=== PATIENT | female | born 2000 | race Caucasian/White ===

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

== ENCOUNTER 2019-02-24 12:44 | Emergency (ER) | payer MEDICAID ==
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
[2019-02-24 13:40] LABS: BILIRUBIN,URINE NEGATIVE (NEGATIVE); GLUCOSE, URINE (UA) NEGATIVE (NEGATIVE); KETONES,URINE (UA) NEGATIVE (NEGATIVE); LEUKOCYTE ESTERASE, URINE NEGATIVE (NEGATIVE); NITRITE,URINE NEGATIVE (NEGATIVE); OCCULT BLOOD,URINE NEGATIVE (NEGATIVE); PH,URINE 5.5 PH (5.0-7.5); PROTEIN,URINE NEGATIVE (NEGATIVE); UROBILINOGEN,URINE 0.2 (NORMAL) E.U./dL (NORMAL)
[2019-02-24 13:44] LABS: CLARITY,URINE CLOUDY (CLEAR)
[2019-02-24 13:56] LABS: AMORPHOUS SEDIMENT,UR Moderate /LPF; BACTERIA,URINE Few /HPF (None Seen); RBC,URINE 0-5 /HPF (0-5); SQUAMOUS EPITHELIAL CELL,UR FEW Squamous (<= Few)
[2019-02-24 13:57] LABS: HCG UR QUAL NEGATIVE
[2019-02-24 15:10] LABS: CANDIDA GROUP DNA NEGATIVE (NEGATIVE); CANDIDA KRUSEI DNA NEGATIVE (NEGATIVE); TRICHOMONAS VAGINALIS DNA NEGATIVE (NEGATIVE)
[2019-02-24 15:32] VITALS: BP 142/77
[2019-02-24 18:57] LABS: TRICHOMONAS VAGINALIS DNA NEGATIVE (NEGATIVE)
== END 2019-02-24 15:32 | disposition home or self-care (01) ==
LOC: ED 12:44
DX: N76.0 Acute vaginitis (principal); F17.200 Nicotine dependence, unspecified, uncomplicated
CPT/HCPCS: 81001; 81025; 87086; 87491; 87591; 87661; 87801; 99283; 99284

== ENCOUNTER 2019-03-18 07:29 | Emergency (ER) | payer OTHER, MEDICAID ==
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
[2019-03-18] MEDS ORDERED: KETOROLAC 60 MG/2 ML VIAL IM STA (10:30)
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
[2019-03-18 11:15] VITALS: BP 90/50
== END 2019-03-18 11:15 | disposition home or self-care (01) ==
LOC: ED 07:29
DX: S06.0X0A Concussion without loss of consciousness, initial encounter (principal); S16.1XXA Strain of muscle, fascia and tendon at neck level, initial encounter; S20.219A Contusion of unspecified front wall of thorax, initial encounter; S39.012A Strain of muscle, fascia and tendon of lower back, initial encounter; S50.12XA Contusion of left forearm, initial encounter; S50.11XA Contusion of right forearm, initial encounter; V47.0XXA Car driver injured in collision with fixed or stationary object in nontraffic accident, initial encounter; W22.11XA Striking against or struck by driver side automobile airbag, initial encounter; Y92.410 Unspecified street and highway as the place of occurrence of the external cause; F17.200 Nicotine dependence, unspecified, uncomplicated
CPT/HCPCS: 70450; 71046; 72100; 72125; 99284

== ENCOUNTER 2019-06-04 10:48 | Emergency (ER) | payer MEDICAID, OTHER ==
[2019-06-04 12:14] VITALS: BP 108/56
--- NOTE | 2019-06-04 12:18 | ED Physician Documentation ---
History of Present Illness - Stated complaint Stated Complaint: BILATERAL FOOT PX/TINGLING - Chief complaint Chief Complaint: Ext Problem - Additonal information Additional information: This is a 19-year-old female presents with pain in her toes and resolved color changes. 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 She can move all of her toes, and the pain has improved, but she still has a little bit of tingling/burning sensation. No blisters, no toe color is now normal. Review of Systems Skin: reports: Other (Discoloration yesterday) Musculoskeletal: reports: Extremity pain PD PAST MEDICAL HISTORY - Past Medical History Cardiovascular: None Respiratory: None Neuro: None Endocrine/Autoimmune: None - Past Surgical History Past Surgical History: Yes Ortho: ACL reconstruction HEENT: Tonsil/Adenoidectomy - Present Medications Home Medications: Ambulatory Orders Medication Instructions Recorded Confirmed Metronidazole [Flagyl] 500 mg PO BID #14 tablet 02/24/19 Cyclobenzaprine [Flexeril] 10 mg PO TID PRN #20 tablet 03/18/19 Hydrocodone/Acetaminophen 1 - 2 each PO Q6H PRN #14 tablet 03/18/19 [Hydrocodon-Acetaminophen 5-325] Ibuprofen [Ibu] 600 mg PO Q6H PRN #30 tablet 06/04/19 - Allergies Allergies/Adverse Reactions: Allergies Allergy/AdvReac Type Severity Reaction Status Date / Time No Known Drug Allergies Allergy Verified 06/04/19 11:26 - Social History Does the pt smoke?: Yes Smoking Status: Current every day smoker Does the pt drink ETOH?: Yes ETOH Use: Liquor Does the pt have substance abuse?: No Substance Use and Type: Marijuana - Immunizations Immunizations are current?: Yes - POLST Patient has POLST: No PD ED PE NORMAL - Vitals Vital signs reviewed: Yes - General General: Alert and oriented X 3 - HEENT HEENT: Atraumatic - Cardiac Cardiac: Strong equal pulses - Respiratory Respiratory: No respiratory distress - Abdomen Abdomen: Non distended - Derm Derm: Warm and dry - Extremities Extremities: Other (Bilateral feet are normal in appearance, there are no color changes, no blisters, no lesions. She has excellent brisk capillary refill over all digits. She is able to wiggle all of her toes without issue. She has full range of motion at her ankles. Her toes are nontender to palpation. They are warm and normal in appearance.) - Neuro Neuro: Alert and oriented X 3 - Psych Psych: Normal mood, Normal affect Results - Vitals Vitals: Oxygen O2 Source Room air PD MEDICAL DECISION MAKING - ED course ED course: Reviewing the photos the patient had from yesterday and her symptoms, appears that she had some frostnip, she had discoloration of her toes associated with pain, but now the skin changes are completely resolved. There is no sign of deeper tissue injury, no blistering, no signs of frostbite at this time. She has full motor function of her toes, and her sensation is intact. Her feet appear completely normal at this time. She has some mild residual pain but this has been improving. I discussed the importance of avoiding further cold injury, recommendations on how to do this, return precautions, and PCP follow up with any residual symptoms. Pt agreed and was discharged home. Departure - Departure Disposition: 01 Home, Self Care Clinical Impression: Frostnip Qualifiers: Encounter type: initial encounter Qualified Code(s): T33.90XA - Superficial frostbite of unspecified sites, initial encounter Condition: Good Prescriptions: Ibuprofen [Ibu] 600 mg PO Q6H PRN #30 tablet PRN Reason: Pain Comments: You were seen today for pain and color change in your toes. It appears that you had the early stage of cold injury called frostnip, your toes appear normal now and your tissue appears healthy. For mild discomfort you may take ibuprofen. Keep your toes warm, avoid further cold exposure. If you are noticing color changes in your skin or pain while exposed to cold, take steps to warm your toes or fingers up to prevent frostbite. Follow-up with your primary care provider Forms: Activity restrictions Discharge Date/Time: 06/04/19 12:20
== END 2019-06-04 12:20 | disposition home or self-care (01) ==
LOC: ED 10:48
DX: T33.832A Superficial frostbite of left toe(s), initial encounter (principal); T33.831A Superficial frostbite of right toe(s), initial encounter; X31.XXXA Exposure to excessive natural cold, initial encounter; Y92.814 Boat as the place of occurrence of the external cause; Y99.0 Civilian activity done for income or pay; F17.200 Nicotine dependence, unspecified, uncomplicated
CPT/HCPCS: 1040M; 99282; 99284

== ENCOUNTER 2020-04-19 06:11 | Outpatient (CLI) | payer MEDICAID, OTHER ==
[2020-04-21 12:24] LABS: HEPATITIS C ANTIBODY NON-REACTIVE (NON-REACTIVE)
[2020-04-21 14:59] LABS: HIV AG/AB 4TH GEN NON-REACTIVE (NON-REACTIVE)
== END 2020-04-19 23:59 | disposition home or self-care (01) ==
LOC: LAB.N 06:11
PROVIDERS: ATTEND Physician Assistant Medical
DX: N76.0 Acute vaginitis (principal)
CPT/HCPCS: 36415; 81599; 86592; 86803; 87389

== ENCOUNTER 2020-04-19 16:00 | Outpatient (CLI) | payer BC, MEDICAID ==
[2020-04-19 20:04] LABS: CANDIDA GROUP DNA POSITIVE (NEGATIVE); CANDIDA KRUSEI DNA NEGATIVE (NEGATIVE); TRICHOMONAS VAGINALIS DNA NEGATIVE (NEGATIVE)
== END 2020-04-19 23:59 | disposition home or self-care (01) ==
LOC: LAB.R 16:00
PROVIDERS: ATTEND Physician Assistant Medical
DX: N76.0 Acute vaginitis (principal)
CPT/HCPCS: 87086; 87661; 87801

== ENCOUNTER 2020-05-07 13:12 | Emergency (ER) | payer OTHER ==
--- NOTE | 2020-05-07 13:58 | ED Physician Documentation ---
PD HPI CHEST PAIN - Stated complaint Stated Complaint: CHEST PX, LIGHTHEADED, CANT SEE OUT OF LEFT EYE - Chief complaint Chief Complaint: General - History obtained from History obtained from: Patient - History of Present Illness Timing - onset: How many days ago (several days of sharp pain left chest radiating to left scapula and to left shoulder, with some numbness to left arm. Occurred while exercising initially. Today with similiar sharp pain with working out upper body and then eliptical machine. Then noted peripheral visual changes right eye then headac) Timing - onset during: Light activity, Exertion Timing - duration: Days Timing - details: Gradual onset, Still present, Waxing and waning Quality: Aching, Sharp, Stabbing, Pain Location: Left chest Radiation: Back (scapula left), Left upper extremity Improved by: Rest Worsened by: Exertion, Inspiration, Movement. No: Eating Associated symptoms: Feeling faint / dizzy, Palpitations. No: Shortness of air, Diaphoresis, Nausea, General Weakness Similar symptoms before: Has not had sx before (no prior heart/lung problems, and no prior migraines/headaches.) Recently seen: Not recently seen Review of Systems Constitutional: denies: Fever, Chills Eyes: reports: Decreased vision (just lateral aspect/rim.), Photophobia. denies: Loss of vision, Irritation Nose: denies: Rhinorrhea / runny nose, Congestion Neurologic: denies: Generalized weakness, Focal weakness, Difficulty speaking, Near syncope Psychiatric: denies: Depressed PD PAST MEDICAL HISTORY - Past Medical History Cardiovascular: None Respiratory: None Neuro: None Endocrine/Autoimmune: None - Past Surgical History Past Surgical History: Yes Ortho: ACL reconstruction HEENT: Tonsil/Adenoidectomy - Present Medications Home Medications: Ambulatory Orders Medication Instructions Recorded Confirmed HYDROcod/ACETAM 5/325 [[place] 5/325] 1 ea PO Q6H PRN #12 tablet 05/07/20 Ibuprofen [Motrin] 600 mg PO TID PRN #25 tab 05/07/20 Supplements 05/07/20 tiZANidine [Zanaflex] 4 mg PO Q8H PRN #25 tablet 05/07/20 - Allergies Allergies/Adverse Reactions: Allergies Allergy/AdvReac Type Severity Reaction Status Date / Time No Known Drug Allergies Allergy Verified 05/07/20 13:29 - Social History Does the pt smoke?: Yes Smoking Status: Current every day smoker Does the pt drink ETOH?: Yes Does the pt have substance abuse?: No - Family History Family history: reports: CAD. denies: Venous thromboembolism, Aortic aneursym, Aortic dissection - Immunizations Immunizations are current?: Yes - POLST Patient has POLST: No PD ED PE NORMAL - Vitals Vital signs reviewed: Yes - General General: Alert and oriented X 3, No acute distress, Well developed/nourished - HEENT HEENT: PERRL, EOMI, Pharynx benign, Other (anterior and posterior chambers appear normal on fundal exam. ) - Neck Neck: Supple, no meningeal sign, No bony TTP - Cardiac Cardiac: RRR, No murmur - Respiratory Respiratory: Clear bilaterally, Other (no chestwall tenderness) - Abdomen Abdomen: Soft, Non tender - Derm Derm: Normal color, Warm and dry - Extremities Extremities: No tenderness to palpate, Normal ROM s pain, No edema, No calf tenderness / cord - Neuro Neuro: Alert and oriented X 3, No motor deficit, Normal speech Eye Opening: Spontaneous Motor: Obeys Commands Verbal: Oriented GCS Score: 15 - Psych Psych: No: Normal affect (very anxious but pleasant) Results - Vitals Vitals: Vital Signs - 24 hr 05/07/20 05/07/20 13:15 17:32 Temperature 36.3 C L Heart Rate 87 82 Respiratory 16 18 Rate Blood Pressure 137/79 H 129/77 O2 Saturation 100 95 Oxygen O2 Source Room air - Labs Labs: Laboratory Tests 05/07/20 05/07/20 05/07/20 13:50 14:08 14:08 WBC 9.5 RBC 3.75 L Hgb 11.8 L Hct 36.0 L MCV 96.0 MCH 31.5 H MCHC 32.8 RDW 12.9 Plt Count 192 MPV 9.7 Neut # (Auto) 6.4 Lymph # (Auto) 2.6 Spink # (Auto) 0.5 Eos # (Auto) 0.0 Baso # (Auto) 0.0 Absolute Nucleated RBC 0.00 Nucleated RBC % 0.0 Sodium 132 L Potassium 3.3 L Chloride 92 L Carbon Dioxide 27 Anion Gap 13.0 BUN 11 Creatinine 0.9 Estimated GFR (MDRD) 80 L Glucose 85 Calcium 9.3 Total Bilirubin 0.6 AST 43 H ALT 26 Alkaline Phosphatase 46 Troponin I High Sens Total Protein 7.2 Albumin 4.5 Globulin 2.7 Albumin/Globulin Ratio 1.7 Lipase 28 Urine Color COLORLESS Urine Clarity CLEAR Urine pH 6.0 Ur Specific Crowder <=1.005 Urine Protein NEGATIVE Urine Glucose (UA) NEGATIVE Urine Ketones NEGATIVE Urine Occult Blood NEGATIVE Urine Nitrite NEGATIVE Urine Bilirubin NEGATIVE Urine Urobilinogen 0.2 (NORMAL) Ur Leukocyte Esterase NEGATIVE Ur Microscopic Review NOT INDICATED Urine Culture Comments NOT INDICATED Urine HCG, Qual NEGATIVE 05/07/20 14:08 WBC RBC Hgb Hct MCV MCH MCHC RDW Plt Count MPV Neut # (Auto) Lymph # (Auto) Spink # (Auto) Eos # (Auto) Baso # (Auto) Absolute Nucleated RBC Nucleated RBC % Sodium Potassium Chloride Carbon Dioxide Anion Gap BUN Creatinine Estimated GFR (MDRD) Glucose Calcium Total Bilirubin AST ALT Alkaline Phosphatase Troponin I High Sens 8.7 Total Protein Albumin Globulin Albumin/Globulin Ratio Lipase Urine Color Urine Clarity Urine pH Ur Specific Crowder Urine Protein Urine Glucose (UA) Urine Ketones Urine Occult Blood Urine Nitrite Urine Bilirubin Urine Urobilinogen Ur Leukocyte Esterase Ur Microscopic Review Urine Culture Comments Urine HCG, Qual - Rads (name of study) head CT Radiology: Prelim report reviewed (no acute process), See rad report chest angio Radiology: Prelim report reviewed (normal aorta. ), See rad report PD MEDICAL DECISION MAKING - ED course Complexity details: reviewed results, re-evaluated patient (feeling improved with IV meds here. ), considered differential (concern for lung/heart and particularly vascular like dissection. Could be just musculoskeletal and coincidentally some ocular migraine. But consider dissection of aorta or other bad process. ), d/w patient Departure - Departure Disposition: 01 Home, Self Care Clinical Impression: Pain of left scapula, Vision abnormalities, Ocular migraine Condition: Stable Record reviewed to determine appropriate education?: Yes Instructions: ED Strain Muscle Ext Prescriptions: Ibuprofen [Motrin] 600 mg PO TID PRN #25 tab PRN Reason: Pain HYDROcod/ACETAM 5/325 [[place] 5/325] 1 ea PO Q6H PRN #12 tablet PRN Reason: Pain tiZANidine [Zanaflex] 4 mg PO Q8H PRN #25 tablet PRN Reason: Spasms Comments: I would suggest decreasing your general caffeine use. Continue to stay well- hydrated. Your other supplements should be okay. Regarding the vision change in the one eye, I am assuming the symptoms sound like a ophthalmic migraine. No other acute abnormality is seen on the CT scan and blood testing. Regarding the left chest/scapular pain, it would seem likely musculoskeletal as there is no signs of heart lung or vascular problems based on your testing. I would use anti-inflammatory such as ibuprofen 3 times a day. Add tizanidine if needed for stiffness and spasms. To that add Tylenol if needed for pain, and hydrocodone for worse pain if needed short term. I would anticipate improvement over several days and resolution over 5 to 7 days. Recheck if not better in that timeframe. Check if other symptoms develop with that. Discharge Date/Time: 05/07/20 17:32
[2020-05-07 14:13] LABS: BILIRUBIN,URINE NEGATIVE (NEGATIVE); GLUCOSE, URINE (UA) NEGATIVE (NEGATIVE); KETONES,URINE (UA) NEGATIVE (NEGATIVE); LEUKOCYTE ESTERASE, URINE NEGATIVE (NEGATIVE); NITRITE,URINE NEGATIVE (NEGATIVE); OCCULT BLOOD,URINE NEGATIVE (NEGATIVE); PROTEIN,URINE NEGATIVE (NEGATIVE); UROBILINOGEN,URINE 0.2 (NORMAL) E.U./dL (NORMAL)
[2020-05-07 14:14] LABS: CLARITY,URINE CLEAR (CLEAR)
[2020-05-07 14:15] LABS: HCG UR QUAL NEGATIVE
[2020-05-07 14:19] LABS: BASOPHILS % (AUTO) 0.2 %; EOSINOPHILS % (AUTO) 0.2 %; HGB - HEMOGLOBIN 11.8 g/dL (12.0-16.0); LYMPHOCYTES # (AUTO) 2.6 10^3/uL (1.5-3.5); LYMPHOCYTES % (AUTO) 27.5 %; MEAN CORPUSCULAR HEMOGLOBIN 31.5 pg (27.0-31.0); MEAN CORPUSCULAR HGB CONC 32.8 g/dL (32.0-36.0); MEAN PLATELET VOLUME 9.7 fL (7.9-10.8); MONOCYTES # (AUTO) 0.5 10^3/uL (0.0-1.0); MONOCYTES % (AUTO) 4.7 %; NEUTROPHILS # (AUTO) 6.4 10^3/uL (1.5-6.6); NEUTROPHILS % (AUTO) 67.2 %; PLT - PLATELET COUNT 192 10^3/uL (130-450); RED BLOOD COUNT 3.75 10^6/uL (4.20-5.40); RED CELL DISTRIBUTION WIDTH 12.9 % (12.0-15.0); WHITE BLOOD COUNT 9.5 x10^3/uL (4.8-10.8)
[2020-05-07] MEDS ORDERED: LORazepam 2 MG/ML VIAL IVP STA (14:29)
[2020-05-07] MEDS ORDERED: KETOROLAC 30 MG/ML VIAL IVP STA (14:29)
[2020-05-07] MEDS ORDERED: SODIUM CHLORIDE 0.9% 1,000 ML IV STA (14:29)
[2020-05-07 14:33] LABS: ALBUMIN 4.5 g/dL (3.2-5.5); ALBUMIN/GLOBULIN RATIO 1.7 (1.0-2.2); BILIRUBIN,TOTAL 0.6 mg/dL (0.2-1.0); CALCIUM 9.3 mg/dL (8.5-10.3); CREATININE 0.9 mg/dL (0.4-1.0); TOTAL PROTEIN 7.2 g/dL (6.7-8.2)
[2020-05-07] MEDS ORDERED: IOVERSOL 320 100 ML VIAL IVP ONE ×2 (14:43→16:48)
--- NOTE | 2020-05-07 15:53 | CT Report ---
PROCEDURE: HEAD WO INDICATIONS: LEFT HEADACHE, RIGHT VISUAL CHANGE. TECHNIQUE: Noncontrast 4.5 mm thick angled axial sections acquired from the foramen magnum to the vertex. For r adiation dose reduction, the following was used: automated exposure control, adjustment of mA and/or kV according to patient size. COMPARISON: None. FINDINGS: Image quality: Excellent. CSF spaces: Basal cisterns are patent. No extra-axial fluid collections. Ventricles are normal in size and shape. Brain: No midline shift. No intracranial masses or hemorrhage. Yen-white matter interface is norm al. Skull and face: Calvarium and visualized facial bones are intact, without suspicious lesions. Sinuses: Visualized sinuses and mastoids are clear. IMPRESSION: Normal for age, source of current symptoms is not seen. Reviewed by: Hakeem Sen MD on 05/07/2020 3:52 PM PST Approved by: Hakeem Sen MD on 05/07/2020 3:52 PM PST Station ID: [id number]
--- NOTE | 2020-05-07 16:02 | CT Report ---
PROCEDURE: ANGIO CHEST W/WO INDICATIONS: left chest/back pain into neck; eval aorta CONTRAST: IV CONTRAST: Optiray 320 ml: 80 PO CONTRAST: *NO PO CONTRAST TECHNIQUE: After the administration of intravenous contrast, 2 mm thick sections acquired from the pulmonary api joya to the posterior costophrenic angles. 3-dimensional maximum intensity projection (MIP) coronal a nd sagittal reformats were then acquired through the thorax. For radiation dose reduction, the follow ing was used: automated exposure control, adjustment of mA and/or kV according to patient size. COMPARISON: FINDINGS: Image quality: Excellent. Pulmonary arteries: Pulmonary arteries are normal in size, and demonstrate no intraluminal filling d efects to suggest central pulmonary embolism. Lungs and pleura: Lungs are clear. No pleural effusions or pneumothorax. Central and peripheral ai rways are patent. Mediastinum: Heart size is normal, without pericardial effusion. No mediastinal or hilar adenopathy . Thoracic aorta is normal in caliber and enhancement. Esophagus is normal in caliber, without hiat al hernia. Bones and chest wall: No suspicious bony lesions. Ribs and thoracic spine appear intact throughout. The thyroid is normal. No axillary or supraclavicular adenopathy. Abdomen: Visualized upper abdominal solid organs appear normal in the early arterial phase of enhanc ement. IMPRESSION: There is no sign of aortic aneurysm or dissection. No underlying inflammatory change is seen involvin g the lung parenchyma or pleural surfaces to explain atypical chest pain. A pulmonary embolus is not found-the phase of contrast enhancement allows visualization of the pulmonary arterial vasculature to a diagnostic degree. Overall, therefore, etiology of current symptoms is not identified. The brachio cephalic arterial vasculature extending cephalad into the lower neck appears normal also. Reviewed by: Hakeem Sen MD on 05/07/2020 4:01 PM PST Approved by: Hkaeem Sen MD on 05/07/2020 4:01 PM PST Station ID: [id number]
[2020-05-07] MEDS ORDERED: HYDROmorphone 1 MG/ML CARPUJECT IVP STA (16:41)
[2020-05-07 17:32] VITALS: BP 129/77
== END 2020-05-07 17:32 | disposition home or self-care (01) ==
LOC: ED 13:12
DX: R07.9 Chest pain, unspecified (principal); M25.512 Pain in left shoulder; G43.B0 Ophthalmoplegic migraine, not intractable; H53.9 Unspecified visual disturbance; Z82.49 Family history of ischemic heart disease and other diseases of the circulatory system; F17.200 Nicotine dependence, unspecified, uncomplicated
CPT/HCPCS: 36415; 70450; 71275; 80053; 81003; 81025; 83690; 84484; 85025; 93005; 96374; 96375; 99284; J1170; J2060; Q9967; 81001; 87086

== ENCOUNTER 2020-07-02 08:00 | Outpatient (CLI) | payer SELFPAY ==
[2020-07-03 03:06] LABS: CANDIDA KRUSEI DNA UNRESOLVED (NEGATIVE)
[2020-07-03 03:07] LABS: CANDIDA GROUP DNA UNRESOLVED (NEGATIVE); TRICHOMONAS VAGINALIS DNA UNRESOLVED (NEGATIVE)
== END 2020-07-02 23:59 | disposition home or self-care (01) ==
LOC: LAB.R 08:00
PROVIDERS: ATTEND Physician Assistant Medical
DX: N76.0 Acute vaginitis (principal)
CPT/HCPCS: 87086; 87661; 87801

== ENCOUNTER 2020-08-20 08:00 | Outpatient (CLI) | payer BC, OTHER ==
[2020-08-20 22:22] LABS: BACTERIAL VAGINOSIS DNA NEGATIVE (NEGATIVE); CANDIDA KRUSEI DNA NEGATIVE (NEGATIVE)
[2020-08-20 22:23] LABS: CANDIDA GLABRATA DNA NEGATIVE (NEGATIVE); CANDIDA GROUP DNA POSITIVE (NEGATIVE); TRICHOMONAS VAGINALIS DNA NEGATIVE (NEGATIVE)
[2020-08-20 23:39] LABS: NEISSERIA GONORRHOEAE DNA NEGATIVE (NEGATIVE); TRICHOMONAS VAGINALIS DNA NEGATIVE (NEGATIVE)
[2020-08-20 23:51] LABS: CHLAMYDIA TRACHOMATIS DNA POSITIVE (NEGATIVE)
--- OUTSIDE RECORDS SUMMARY | 2020-08-26 02:04 | EXTERNAL MEDICAL SUMMARY RPT | Continuity of Care Document ---
:1999 Demographics Phone Unavailable Preferred Language Unknown Marital Status Unknown Caodaism Affiliation Unknown Race Unknown Ethnic Group Unknown Author Organization [facility] Address [address] [id number] Phone Care Team Providers Name Role Phone Registrar Unavailable Unavailable PA-C Unavailable Unavailable MD Unavailable Unavailable Sandy Unavailable Unavailable PHARMACY SERVICE ASSOCIATE Unavailable Unavailable Problems date description facility [id number] [facility] [id number] [facility] [id number] blood in urine, abd pain [facility] [id number] CHLAM, NEISSERIA, TRICH DNA All [id number] Current every day smoker All 49133435 Vaginitis Pathogens-Affirm CASING BLOWER III All [id number] Alcohol use All 74220557 Urine C&S All 06486548 Alcohol intake All [id number] Details of drug misuse behavior All [id number] CHLAM, NEISSERIA, TRICH DNA All 93590862 Current every day smoker All 18443667 Details of drug misuse behavior All 02490033 Other specified noninflammatory All disorders of vagina 76427062 Urine C&S All 14690712 Vaginal discharge All 55817407 Vaginitis Pathogens-Affirm CASING BLOWER III All 76034324 Alcohol use All 04702604 Leukorrhea, not specified as infective All Medications date description facility [id number] [facility] All 81936818 DOXYCYCLINE HYCLATE All [id number] DOXYCYCLINE HYCLATE All [id number] [facility] All [id number] [facility] All [id number] DOXYCYCLINE HYCLATE All 28153488 DOXYCYCLINE HYCLATE All 16128495 [facility] All 99085905 [facility] All 64399102 DOXYCYCLINE HYCLATE All [id number] DOXYCYCLINE HYCLATE All 67948427 [facility] All Procedures date description facility 06478723 URINE DIP All date description facility 75627913 URINE DIP All date description facility 34456965 URINE DIP All date description facility 52142856 URINE DIP All date description facility 95110133 URINE DIP All date description facility 68354518 [facility] All date description facility 21313331 [facility] D[facility] All date description facility 44329415 [facility] D[facility] All date description facility 48504006 [facility] D[facility] All Results test status date ordered by attending specimen mai e T unknown [id number] unknown unknown unknown T unknown 99823831 unknown unknown unknown CANDIDA_GLABRATA_DNA unknown 17876256 unknown unknown un known CANDIDA_KRUSEI_DNA unknown 88155669 unknown unknown unkn own DIPSTICK_URINE_STRIP_L unknown 42036819 unknown unknown unknown OT_NUMBER Candida_glabrata_by_Re unknown 21575301 unknown unknown unknown si-ilpf_EUH_-_iiffgcd_f ulture protein_urine_semiquan unknown 30707701 unknown unknown unknown titative_dipstick_ glucose_urine_semiquan unknown 12989398 unknown unknown unknown titative Erythrocytes_area_in_U unknown 52629378 unknown unknown unknown rine_sediment_by_Micros copy_high_power_field Candida_krusei_by_Real unknown 64846556 unknown unknown unknown -Time_PCR RBC_urine_dipstick unknown 74895061 unknown unknown unkn own Albumin_Presence_in_Ur unknown 47017058 unknown unknown unknown ine urine_color unknown 60422894 unknown unknown unknown bilirubin_urine unknown 90835603 unknown unknown unknown ketones_urine_by_test_ unknown 38544306 unknown unknown unknown strip nitrite_urine_semiquan unknown 10326507 unknown unknown unknown titative pH_urine_semiquantitat unknown 01997740 unknown unknown unknown jason specific_gravity_urine unknown 17936942 unknown unknown unknown urobilinogen_urine_sem unknown 57001356 unknown unknown unknown iquantitative_dipstick_ leukocyte_esterase_uri unknown 16004697 unknown unknown unknown ne_by_dipstick appearance_urine unknown 98185468 unknown unknown unknow n urinalysis_routine unknown 45451139 unknown unknown unkn own Appearance_of_Urine unknown 15583345 unknown unknown unk nown Bilirubin.total_Presen unknown 98040067 unknown unknown unknown ce_in_Urine_by_Test_str ip Color_of_Urine unknown 48892016 unknown unknown unknown Glucose_Mass_volume_in unknown 20409197 unknown unknown unknown _Urine_by_Test_strip Ketones_Mass_volume_in unknown 91983719 unknown unknown unknown _Urine_by_Test_strip Leukocyte_esterase_Pre unknown 14482440 unknown unknown unknown sence_in_Urine_by_Test_ strip Nitrite_Presence_in_Ur unknown 39617903 unknown unknown unknown ine_by_Test_strip pH_of_Urine_by_Test_st unknown 99993768 unknown unknown unknown rip Specific_gravity_of_Ur unknown 28861570 unknown unknown unknown ine_by_Test_strip Urobilinogen_Presence_ unknown 22354408 unknown unknown unknown in_Urine_by_Test_strip Candida_glabrata_DNA_P unknown 06356818 unknown unknown unknown resence_in_Vaginal_flui d_by_NAA_with_probe_det ection T unknown 21620450 unknown unknown unknown T unknown 93025370 unknown unknown unknown CANDIDA_GLABRATA_DNA unknown 45813098 unknown unknown un known CANDIDA_KRUSEI_DNA unknown 31815546 unknown unknown unkn own Candida_glabrata_by_Re unknown 50950050 unknown unknown unknown re-htik_VZT_-_qlctntp_p ulture Candida_krusei_by_Real unknown 67396752 unknown unknown unknown -Time_PCR Candida_glabrata_DNA_P unknown 97671058 unknown unknown unknown resence_in_Vaginal_flui d_by_NAA_with_probe_det ection T unknown 84847091 unknown unknown unknown T unknown 93020775 unknown unknown unknown CANDIDA_GLABRATA_DNA unknown 59214254 unknown unknown un known CANDIDA_KRUSEI_DNA unknown 16317759 unknown unknown unkn own DIPSTICK_URINE_STRIP_L unknown 10327804 unknown unknown unknown OT_NUMBER Candida_glabrata_by_Re unknown 49441810 unknown unknown unknown nx-gjuk_YWB_-_tqmwupi_m ulture protein_urine_semiquan unknown 64156462 unknown unknown unknown titative_dipstick_ glucose_urine_semiquan unknown 71178514 unknown unknown unknown titative Erythrocytes_area_in_U unknown 28744769 unknown unknown unknown rine_sediment_by_Micros copy_high_power_field Candida_krusei_by_Real unknown 05998496 unknown unknown unknown -Time_PCR RBC_urine_dipstick unknown 90933619 unknown unknown unkn own Albumin_Presence_in_Ur unknown 97847486 unknown unknown unknown ine urine_color unknown 34022886 unknown unknown unknown bilirubin_urine unknown 98003035 unknown unknown unknown ketones_urine_by_test_ unknown 07777417 unknown unknown unknown strip nitrite_urine_semiquan unknown 49645862 unknown unknown unknown titative pH_urine_semiquantitat unknown 68575208 unknown unknown unknown jason specific_gravity_urine unknown 15422611 unknown unknown unknown urobilinogen_urine_sem unknown 34815197 unknown unknown unknown iquantitative_dipstick_ leukocyte_esterase_uri unknown 84923960 unknown unknown unknown ne_by_dipstick appearance_urine unknown 36857246 unknown unknown unknow n urinalysis_routine unknown 34679806 unknown unknown unkn own Appearance_of_Urine unknown 12471966 unknown unknown unk nown Bilirubin.total_Presen unknown 27653885 unknown unknown unknown ce_in_Urine_by_Test_str ip Color_of_Urine unknown 20327089 unknown unknown unknown Glucose_Mass_volume_in unknown 91638408 unknown unknown unknown _Urine_by_Test_strip Ketones_Mass_volume_in unknown 29519132 unknown unknown unknown _Urine_by_Test_strip Leukocyte_esterase_Pre unknown 60582533 unknown unknown unknown sence_in_Urine_by_Test_ strip Nitrite_Presence_in_Ur unknown 31205848 unknown unknown unknown ine_by_Test_strip pH_of_Urine_by_Test_st unknown 73614271 unknown unknown unknown rip Specific_gravity_of_Ur unknown 52548954 unknown unknown unknown ine_by_Test_strip Urobilinogen_Presence_ unknown 32151799 unknown unknown unknown in_Urine_by_Test_strip Candida_glabrata_DNA_P unknown 44242687 unknown unknown unknown resence_in_Vaginal_flui d_by_NAA_with_probe_det ection DIPSTICK_URINE_STRIP_L unknown 18116213 unknown unknown unknown OT_NUMBER Urine_HCG_Lot_Number_C unknown 48103266 unknown unknown unknown LIA_Waived_ Urine_HCG_Exp_Date_CLI unknown 25638419 unknown unknown unknown A_Waived_ protein_urine_semiquan unknown 48750542 unknown unknown unknown titative_dipstick_ glucose_urine_semiquan unknown 87618773 unknown unknown unknown titative Erythrocytes_area_in_U unknown 24424415 unknown unknown unknown rine_sediment_by_Micros copy_high_power_field RBC_urine_dipstick unknown 25102903 unknown unknown unkn own Albumin_Presence_in_Ur unknown 59781548 unknown unknown unknown ine Choriogonadotropin_pre unknown 62614670 unknown unknown unknown gnancy_test_Presence_in _Urine human_chorionic_gonado unknown 39758444 unknown unknown unknown tropin_urine_qualitativ e_urine_pregnancy_test_ urine_color unknown 61646817 unknown unknown unknown bilirubin_urine unknown 59705295 unknown unknown unknown ketones_urine_by_test_ unknown 42184483 unknown unknown unknown strip nitrite_urine_semiquan unknown 50666542 unknown unknown unknown titative pH_urine_semiquantitat unknown 37480193 unknown unknown unknown jason specific_gravity_urine unknown 45388532 unknown unknown unknown urobilinogen_urine_sem unknown 52894016 unknown unknown unknown iquantitative_dipstick_ leukocyte_esterase_uri unknown 16551884 unknown unknown unknown ne_by_dipstick appearance_urine unknown 57479370 unknown unknown unknow n urinalysis_routine unknown 70990455 unknown unknown unkn own culture_status unknown 16421179 unknown unknown unknown Appearance_of_Urine unknown 32038195 unknown unknown unk nown Bilirubin.total_Presen unknown 63344678 unknown unknown unknown ce_in_Urine_by_Test_str ip Color_of_Urine unknown 43519310 unknown unknown unknown Glucose_Mass_volume_in unknown 70740293 unknown unknown unknown _Urine_by_Test_strip Ketones_Mass_volume_in unknown 25648298 unknown unknown unknown _Urine_by_Test_strip Leukocyte_esterase_Pre unknown 40563240 unknown unknown unknown sence_in_Urine_by_Test_ strip Nitrite_Presence_in_Ur unknown 70628447 unknown unknown unknown ine_by_Test_strip pH_of_Urine_by_Test_st unknown 88852948 unknown unknown unknown rip Specific_gravity_of_Ur unknown 84836267 unknown unknown unknown ine_by_Test_strip Urobilinogen_Presence_ unknown 20139203 unknown unknown unknown in_Urine_by_Test_strip T unknown 53921280 unknown unknown unknown T unknown 35572040 unknown unknown unknown T unknown 00970406 unknown unknown unknown CANDIDA_GLABRATA_DNA unknown 28212565 unknown unknown un known CANDIDA_KRUSEI_DNA unknown 90650398 unknown unknown unkn own CHLAMYDIA_TRACHOMATIS_ unknown 03178346 unknown unknown unknown DNA T unknown 30020741 unknown unknown unknown TRICHOMONAS_VAGINALIS_ unknown 55535584 unknown unknown unknown DNA DIPSTICK_URINE_STRIP_L unknown 31133489 unknown unknown unknown OT_NUMBER Candida_glabrata_by_Re unknown 61224796 unknown unknown unknown uv-qhbl_TIN_-_cnfqibj_j ulture TRICHOMONAS_VAGINALIS_ unknown 52175935 unknown unknown unknown DNA_PROBE Urine_HCG_Lot_Number_C unknown 44144970 unknown unknown unknown LIA_Waived_ Urine_HCG_Exp_Date_CLI unknown 57730703 unknown unknown unknown A_Waived_ protein_urine_semiquan unknown 59474621 unknown unknown unknown titative_dipstick_ glucose_urine_semiquan unknown 69954348 unknown unknown unknown titative Erythrocytes_area_in_U unknown 21037672 unknown unknown unknown rine_sediment_by_Micros copy_high_power_field chlamydia_DNA_probe unknown 14384588 unknown unknown unk nown Candida_krusei_by_Real unknown 51685459 unknown unknown unknown -Time_PCR RBC_urine_dipstick unknown 66428553 unknown unknown unkn own Albumin_Presence_in_Ur unknown 10235452 unknown unknown unknown ine Choriogonadotropin_pre unknown 06804042 unknown unknown unknown gnancy_test_Presence_in _Urine Chlamydia_trachomatis_ unknown 20162412 unknown unknown unknown DNA_Presence_in_Unspeci fied_specimen_by_NAA_wi th_probe_detection human_chorionic_gonado unknown 99961873 unknown unknown unknown tropin_urine_qualitativ e_urine_pregnancy_test_ urine_color unknown 28756473 unknown unknown unknown bilirubin_urine unknown 26670573 unknown unknown unknown ketones_urine_by_test_ unknown 67763352 unknown unknown unknown strip nitrite_urine_semiquan unknown 57072349 unknown unknown unknown titative pH_urine_semiquantitat unknown 83301216 unknown unknown unknown jason specific_gravity_urine unknown 60881603 unknown unknown unknown urobilinogen_urine_sem unknown 54430017 unknown unknown unknown iquantitative_dipstick_ leukocyte_esterase_uri unknown 47543853 unknown unknown unknown ne_by_dipstick appearance_urine unknown 57463993 unknown unknown unknow n urinalysis_routine unknown 33747459 unknown unknown unkn own culture_status unknown 32696051 unknown unknown unknown Appearance_of_Urine unknown 68663685 unknown unknown unk nown Bilirubin.total_Presen unknown 78864344 unknown unknown unknown ce_in_Urine_by_Test_str ip Color_of_Urine unknown 14493606 unknown unknown unknown Glucose_Mass_volume_in unknown 93419209 unknown unknown unknown _Urine_by_Test_strip Ketones_Mass_volume_in unknown 89946093 unknown unknown unknown _Urine_by_Test_strip Leukocyte_esterase_Pre unknown 68176886 unknown unknown unknown sence_in_Urine_by_Test_ strip Nitrite_Presence_in_Ur unknown 12046072 unknown unknown unknown ine_by_Test_strip pH_of_Urine_by_Test_st unknown 94096169 unknown unknown unknown rip Specific_gravity_of_Ur unknown 23615099 unknown unknown unknown ine_by_Test_strip Urobilinogen_Presence_ unknown 23590453 unknown unknown unknown in_Urine_by_Test_strip Candida_glabrata_DNA_P unknown 87879505 unknown unknown unknown resence_in_Vaginal_flui d_by_NAA_with_probe_det ection T unknown 35895038 unknown unknown unknown T unknown 31646382 unknown unknown unknown T unknown 25202903 unknown unknown unknown CANDIDA_GLABRATA_DNA unknown 35772864 unknown unknown un known CANDIDA_KRUSEI_DNA unknown 45954522 unknown unknown unkn own CHLAMYDIA_TRACHOMATIS_ unknown 50199924 unknown unknown unknown DNA T unknown 48672670 unknown unknown unknown TRICHOMONAS_VAGINALIS_ unknown 54777456 unknown unknown unknown DNA DIPSTICK_URINE_STRIP_L unknown 24389179 unknown unknown unknown OT_NUMBER Candida_glabrata_by_Re unknown 75616299 unknown unknown unknown ex-qfqo_VFL_-_bsvizho_r ulture TRICHOMONAS_VAGINALIS_ unknown 71419849 unknown unknown unknown DNA_PROBE Urine_HCG_Lot_Number_C unknown 52307064 unknown unknown unknown LIA_Waived_ Urine_HCG_Exp_Date_CLI unknown 12050171 unknown unknown unknown A_Waived_ protein_urine_semiquan unknown 20582409 unknown unknown unknown titative_dipstick_ glucose_urine_semiquan unknown 50015448 unknown unknown unknown titative Erythrocytes_area_in_U unknown 64296479 unknown unknown unknown rine_sediment_by_Micros copy_high_power_field chlamydia_DNA_probe unknown 10135760 unknown unknown unk nown Candida_krusei_by_Real unknown 93695076 unknown unknown unknown -Time_PCR RBC_urine_dipstick unknown 23991635 unknown unknown unkn own Albumin_Presence_in_Ur unknown 03150384 unknown unknown unknown ine Choriogonadotropin_pre unknown 89376841 unknown unknown unknown gnancy_test_Presence_in _Urine Chlamydia_trachomatis_ unknown 63228793 unknown unknown unknown DNA_Presence_in_Unspeci fied_specimen_by_NAA_wi th_probe_detection human_chorionic_gonado unknown 71700553 unknown unknown unknown tropin_urine_qualitativ e_urine_pregnancy_test_ urine_color unknown 26593820 unknown unknown unknown bilirubin_urine unknown 05383970 unknown unknown unknown ketones_urine_by_test_ unknown 79621785 unknown unknown unknown strip nitrite_urine_semiquan unknown 57909153 unknown unknown unknown titative pH_urine_semiquantitat unknown 96641021 unknown unknown unknown jason specific_gravity_urine unknown 33946822 unknown unknown unknown urobilinogen_urine_sem unknown 28508245 unknown unknown unknown iquantitative_dipstick_ leukocyte_esterase_uri unknown 03992561 unknown unknown unknown ne_by_dipstick appearance_urine unknown 25955534 unknown unknown unknow n urinalysis_routine unknown 26027659 unknown unknown unkn own culture_status unknown 70461311 unknown unknown unknown Appearance_of_Urine unknown 66728897 unknown unknown unk nown Bilirubin.total_Presen unknown 35280734 unknown unknown unknown ce_in_Urine_by_Test_str ip Color_of_Urine unknown 44834016 unknown unknown unknown Glucose_Mass_volume_in unknown 07923690 unknown unknown unknown _Urine_by_Test_strip Ketones_Mass_volume_in unknown 73390471 unknown unknown unknown _Urine_by_Test_strip Leukocyte_esterase_Pre unknown 66925027 unknown unknown unknown sence_in_Urine_by_Test_ strip Nitrite_Presence_in_Ur unknown 79138554 unknown unknown unknown ine_by_Test_strip pH_of_Urine_by_Test_st unknown 23455757 unknown unknown unknown rip Specific_gravity_of_Ur unknown 00931487 unknown unknown unknown ine_by_Test_strip Urobilinogen_Presence_ unknown 85279882 unknown unknown unknown in_Urine_by_Test_strip Candida_glabrata_DNA_P unknown 88787509 unknown unknown unknown resence_in_Vaginal_flui d_by_NAA_with_probe_det ection T unknown 82447299 unknown unknown unknown T unknown 08625734 unknown unknown unknown T unknown 84202744 unknown unknown unknown CANDIDA_GLABRATA_DNA unknown 32595550 unknown unknown un known CANDIDA_KRUSEI_DNA unknown 33624444 unknown unknown unkn own CHLAMYDIA_TRACHOMATIS_ unknown 88087539 unknown unknown unknown DNA T unknown 63941114 unknown unknown unknown TRICHOMONAS_VAGINALIS_ unknown 89829051 unknown unknown unknown DNA DIPSTICK_URINE_STRIP_L unknown 01446068 unknown unknown unknown OT_NUMBER Candida_glabrata_by_Re unknown 22088260 unknown unknown unknown ba-frfj_XQY_-_dtwfdwc_l ulture TRICHOMONAS_VAGINALIS_ unknown 51471850 unknown unknown unknown DNA_PROBE Urine_HCG_Lot_Number_C unknown 28703203 unknown unknown unknown LIA_Waived_ Urine_HCG_Exp_Date_CLI unknown 81409210 unknown unknown unknown A_Waived_ protein_urine_semiquan unknown 39985168 unknown unknown unknown titative_dipstick_ glucose_urine_semiquan unknown 99876824 unknown unknown unknown titative Erythrocytes_area_in_U unknown 23355580 unknown unknown unknown rine_sediment_by_Micros copy_high_power_field chlamydia_DNA_probe unknown 35927591 unknown unknown unk nown Candida_krusei_by_Real unknown 88140246 unknown unknown unknown -Time_PCR RBC_urine_dipstick unknown 12845360 unknown unknown unkn own Albumin_Presence_in_Ur unknown 36158112 unknown unknown unknown ine Choriogonadotropin_pre unknown 01028654 unknown unknown unknown gnancy_test_Presence_in _Urine Chlamydia_trachomatis_ unknown 16131884 unknown unknown unknown DNA_Presence_in_Unspeci fied_specimen_by_NAA_wi th_probe_detection human_chorionic_gonado unknown 46905421 unknown unknown unknown tropin_urine_qualitativ e_urine_pregnancy_test_ urine_color unknown 75887888 unknown unknown unknown bilirubin_urine unknown 99568511 unknown unknown unknown ketones_urine_by_test_ unknown 03619102 unknown unknown unknown strip nitrite_urine_semiquan unknown 44267014 unknown unknown unknown titative pH_urine_semiquantitat unknown 29259300 unknown unknown unknown jason specific_gravity_urine unknown 94335919 unknown unknown unknown urobilinogen_urine_sem unknown 12481926 unknown unknown unknown iquantitative_dipstick_ leukocyte_esterase_uri unknown 42065790 unknown unknown unknown ne_by_dipstick appearance_urine unknown 17929951 unknown unknown unknow n urinalysis_routine unknown 57188739 unknown unknown unkn own culture_status unknown 33592985 unknown unknown unknown Appearance_of_Urine unknown 25886096 unknown unknown unk nown Bilirubin.total_Presen unknown 58819685 unknown unknown unknown ce_in_Urine_by_Test_str ip Color_of_Urine unknown 66151050 unknown unknown unknown Glucose_Mass_volume_in unknown 39729857 unknown unknown unknown _Urine_by_Test_strip Ketones_Mass_volume_in unknown 07259868 unknown unknown unknown _Urine_by_Test_strip Leukocyte_esterase_Pre unknown 97802539 unknown unknown unknown sence_in_Urine_by_Test_ strip Nitrite_Presence_in_Ur unknown 26973005 unknown unknown unknown ine_by_Test_strip pH_of_Urine_by_Test_st unknown 99317122 unknown unknown unknown rip Specific_gravity_of_Ur unknown 97921528 unknown unknown unknown ine_by_Test_strip Urobilinogen_Presence_ unknown 69689560 unknown unknown unknown in_Urine_by_Test_strip Candida_glabrata_DNA_P unknown 11912608 unknown unknown unknown resence_in_Vaginal_flui d_by_NAA_with_probe_det ection facility observation status value reference units lab abnor mal line range code notes All T unknown UNRESOLVED unknown C._GL unknown unknown ABRATA _DNA All T unknown UNRESOLVED unknown C._KR unknown unknown USEI_D NA All CANDIDA_GLAB unknown UNRESOLVED unknown CGLAB unk nown unknown RATA_DNA RATA_D NA All CANDIDA_KRUS unknown UNRESOLVED unknown CKRUS unk nown unknown EI_DNA EI_DNA All DIPSTICK_URI unknown 6019 unknown _1014 unknown unknown NE_STRIP_LOT_ 00 NUMBER All Candida_glab unknown UNRESOLVED unknown _1087 unk nown unknown rata_by_Real- 87 time_PCR_-_va ginal_culture All protein_urin unknown negative unknown _118 unkno wn unknown e_semiquantit ative_dipstic k_ All glucose_urin unknown negative unknown _123 unkno wn unknown e_semiquantit ative All Erythrocytes unknown non-hemolyz unknown _1394 un known unknown _area_in_Urin ed trace 5-1 e_sediment_by _Microscopy_h igh_power_fie ld All Candida_krus unknown UNRESOLVED unknown _1535 unk nown unknown ei_by_Real-Ti 62 me_PCR All RBC_urine_di unknown non-hemolyz unknown _1700 un known unknown pstick ed trace 005 All Albumin_Pres unknown negative unknown _1753 unkno wn unknown ence_in_Urine -3 All urine_color unknown yellow unknown _2751 unknown unknown All bilirubin_ur unknown negative unknown _319 unkno wn unknown ine All ketones_urin unknown small (15) unknown _322 unk nown unknown e_by_test_str ip All nitrite_urin unknown negative unknown _323 unkno wn unknown e_semiquantit ative All pH_urine_sem unknown 7.5 unknown _324 unknown unknown iquantitative All specific_gra unknown 1.015 unknown _325 unknown unknown vity_urine All urobilinogen unknown 0.2 unknown _326 unknown unknown _urine_semiqu antitative_di pstick_ All leukocyte_es unknown negative unknown _327 unkno wn unknown terase_urine_ by_dipstick All appearance_u unknown clear unknown _328 unknown unknown rine All urinalysis_r unknown Clean Catch unknown _47 un known unknown outine All Appearance_o unknown clear unknown _5767 unknown unknown f_Urine -9 All Bilirubin.to unknown negative unknown _5770 unkno wn unknown tal_Presence_ -3 in_Urine_by_T est_strip All Color_of_Uri unknown yellow unknown _5778 unknown unknown ne -6 All Glucose_Mass unknown negative unknown _5792 unkno wn unknown _volume_in_Ur -7 ine_by_Test_s trip All Ketones_Mass unknown small (15) unknown _5797 unk nown unknown _volume_in_Ur -6 ine_by_Test_s trip All Leukocyte_es unknown negative unknown _5799 unkno wn unknown terase_Presen -2 ce_in_Urine_b y_Test_strip All Nitrite_Pres unknown negative unknown _5802 unkno wn unknown ence_in_Urine -4 _by_Test_stri p All pH_of_Urine_ unknown 7.5 unknown _5803 unknown unknown by_Test_strip -2 All Specific_gra unknown 1.015 unknown _5811 unknown unknown vity_of_Urine -5 _by_Test_stri p All Urobilinogen unknown 0.2 unknown _5818 unknown unknown _Presence_in_ -0 Urine_by_Test _strip All Candida_glab unknown UNRESOLVED unknown _6956 unk nown unknown rata_DNA_Pres 3-5 ence_in_Vagin al_fluid_by_N AA_with_probe _detection All T unknown UNRESOLVED unknown C._GL unknown unknown ABRATA _DNA All T unknown UNRESOLVED unknown C._KR unknown unknown USEI_D NA All CANDIDA_GLAB unknown UNRESOLVED unknown CGLAB unk nown unknown RATA_DNA RATA_D NA All CANDIDA_KRUS unknown UNRESOLVED unknown CKRUS unk nown unknown EI_DNA EI_DNA All Candida_glab unknown UNRESOLVED unknown _1087 unk nown unknown rata_by_Real- 87 time_PCR_-_va ginal_culture All Candida_krus unknown UNRESOLVED unknown _1535 unk nown unknown ei_by_Real-Ti 62 me_PCR All Candida_glab unknown UNRESOLVED unknown _6956 unk nown unknown rata_DNA_Pres 3-5 ence_in_Vagin al_fluid_by_N AA_with_probe _detection All T unknown UNRESOLVED unknown C._GL unknown unknown ABRATA _DNA All T unknown UNRESOLVED unknown C._KR unknown unknown USEI_D NA All CANDIDA_GLAB unknown UNRESOLVED unknown CGLAB unk nown unknown RATA_DNA RATA_D NA All CANDIDA_KRUS unknown UNRESOLVED unknown CKRUS unk nown unknown EI_DNA EI_DNA All DIPSTICK_URI unknown 6019 unknown _1014 unknown unknown NE_STRIP_LOT_ 00 NUMBER All Candida_glab unknown UNRESOLVED unknown _1087 unk nown unknown rata_by_Real- 87 time_PCR_-_va ginal_culture All protein_urin unknown negative unknown _118 unkno wn unknown e_semiquantit ative_dipstic k_ All glucose_urin unknown negative unknown _123 unkno wn unknown e_semiquantit ative All Erythrocytes unknown non-hemolyz unknown _1394 un known unknown _area_in_Urin ed trace 5-1 e_sediment_by _Microscopy_h igh_power_fie ld All Candida_krus unknown UNRESOLVED unknown _1535 unk nown unknown ei_by_Real-Ti 62 me_PCR All RBC_urine_di unknown non-hemolyz unknown _1700 un known unknown pstick ed trace 005 All Albumin_Pres unknown negative unknown _1753 unkno wn unknown ence_in_Urine -3 All urine_color unknown yellow unknown _2751 unknown unknown All bilirubin_ur unknown negative unknown _319 unkno wn unknown ine All ketones_urin unknown small (15) unknown _322 unk nown unknown e_by_test_str ip All nitrite_urin unknown negative unknown _323 unkno wn unknown e_semiquantit ative All pH_urine_sem unknown 7.5 unknown _324 unknown unknown iquantitative All specific_gra unknown 1.015 unknown _325 unknown unknown vity_urine All urobilinogen unknown 0.2 unknown _326 unknown unknown _urine_semiqu antitative_di pstick_ All leukocyte_es unknown negative unknown _327 unkno wn unknown terase_urine_ by_dipstick All appearance_u unknown clear unknown _328 unknown unknown rine All urinalysis_r unknown Clean Catch unknown _47 un known unknown outine All Appearance_o unknown clear unknown _5767 unknown unknown f_Urine -9 All Bilirubin.to unknown negative unknown _5770 unkno wn unknown tal_Presence_ -3 in_Urine_by_T est_strip All Color_of_Uri unknown yellow unknown _5778 unknown unknown ne -6 All Glucose_Mass unknown negative unknown _5792 unkno wn unknown _volume_in_Ur -7 ine_by_Test_s trip All Ketones_Mass unknown small (15) unknown _5797 unk nown unknown _volume_in_Ur -6 ine_by_Test_s trip All Leukocyte_es unknown negative unknown _5799 unkno wn unknown terase_Presen -2 ce_in_Urine_b y_Test_strip All Nitrite_Pres unknown negative unknown _5802 unkno wn unknown ence_in_Urine -4 _by_Test_stri p All pH_of_Urine_ unknown 7.5 unknown _5803 unknown unknown by_Test_strip -2 All Specific_gra unknown 1.015 unknown _5811 unknown unknown vity_of_Urine -5 _by_Test_stri p All Urobilinogen unknown 0.2 unknown _5818 unknown unknown _Presence_in_ -0 Urine_by_Test _strip All Candida_glab unknown UNRESOLVED unknown _6956 unk nown unknown rata_DNA_Pres 3-5 ence_in_Vagin al_fluid_by_N AA_with_probe _detection All DIPSTICK_URI unknown 5067 unknown _1014 unknown unknown NE_STRIP_LOT_ 00 NUMBER All Urine_HCG_Lo unknown 34192 unknown _1149 unknown unknown t_Number_CLIA 40 _Waived_ All Urine_HCG_Ex unknown 8 unknown _1149 unknow n unknown p_Date_CLIA_W 41 aived_ All protein_urin unknown negative unknown _118 unkno wn unknown e_semiquantit ative_dipstic k_ All glucose_urin unknown negative unknown _123 unkno wn unknown e_semiquantit ative All Erythrocytes unknown negative unknown _1394 unkno wn unknown _area_in_Urin 5-1 e_sediment_by _Microscopy_h igh_power_fie ld All RBC_urine_di unknown negative unknown _1700 unkno wn unknown pstick 005 All Albumin_Pres unknown negative unknown _1753 unkno wn unknown ence_in_Urine -3 All Choriogonado unknown Negative unknown _2106 unkno wn unknown tropin_pregna -3 ncy_test_Pres ence_in_Urine All human_chorio unknown Negative unknown _2578 unkno wn unknown nic_gonadotro pin_urine_qua litative_urin e_pregnancy_t est_ All urine_color unknown yellow unknown _2751 unknown unknown All bilirubin_ur unknown negative unknown _319 unkno wn unknown ine All ketones_urin unknown negative unknown _322 unkno wn unknown e_by_test_str ip All nitrite_urin unknown negative unknown _323 unkno wn unknown e_semiquantit ative All pH_urine_sem unknown 5 unknown _324 unknown unknown iquantitative All specific_gra unknown 1.015 unknown _325 unknown unknown vity_urine All urobilinogen unknown negative unknown _326 unkno wn unknown _urine_semiqu antitative_di pstick_ All leukocyte_es unknown negative unknown _327 unkno wn unknown terase_urine_ by_dipstick All appearance_u unknown clear unknown _328 unknown unknown rine All urinalysis_r unknown Clean Catch unknown _47 un known unknown outine All culture_stat unknown Yes unknown _5101 unknown unknown us 5 All Appearance_o unknown clear unknown _5767 unknown unknown f_Urine -9 All Bilirubin.to unknown negative unknown _5770 unkno wn unknown tal_Presence_ -3 in_Urine_by_T est_strip All Color_of_Uri unknown yellow unknown _5778 unknown unknown ne -6 All Glucose_Mass unknown negative unknown _5792 unkno wn unknown _volume_in_Ur -7 ine_by_Test_s trip All Ketones_Mass unknown negative unknown _5797 unkno wn unknown _volume_in_Ur -6 ine_by_Test_s trip All Leukocyte_es unknown negative unknown _5799 unkno wn unknown terase_Presen -2 ce_in_Urine_b y_Test_strip All Nitrite_Pres unknown negative unknown _5802 unkno wn unknown ence_in_Urine -4 _by_Test_stri p All pH_of_Urine_ unknown 5 unknown _5803 unknown unknown by_Test_strip -2 All Specific_gra unknown 1.015 unknown _5811 unknown unknown vity_of_Urine -5 _by_Test_stri p All Urobilinogen unknown negative unknown _5818 unkno wn unknown _Presence_in_ -0 Urine_by_Test _strip All T unknown POSITIVE unknown C.TRA unknown un known CH_DNA All T unknown NEGATIVE unknown C._GL unknown un known ABRATA _DNA All T unknown NEGATIVE unknown C._KR unknown un known USEI_D NA All CANDIDA_GLAB unknown NEGATIVE unknown CGLAB unkno wn unknown RATA_DNA RATA_D NA All CANDIDA_KRUS unknown NEGATIVE unknown CKRUS unkno wn unknown EI_DNA EI_DNA All CHLAMYDIA_TR unknown POSITIVE unknown CTDNA unkno wn unknown ACHOMATIS_DNA All T unknown NEGATIVE unknown T.VAG unknown un known INALIS _DNA All TRICHOMONAS_ unknown NEGATIVE unknown TVDNA unkno wn unknown VAGINALIS_DNA All DIPSTICK_URI unknown 5067 unknown _1014 unknown unknown NE_STRIP_LOT_ 00 NUMBER All Candida_glab unknown NEGATIVE unknown _1087 unkno wn unknown rata_by_Real- 87 time_PCR_-_va ginal_culture All TRICHOMONAS_ unknown NEGATIVE unknown _1130 unkno wn unknown VAGINALIS_DNA 02 _PROBE All Urine_HCG_Lo unknown 12663 unknown _1149 unknown unknown t_Number_CLIA 40 _Waived_ All Urine_HCG_Ex unknown 8.. unknown _1149 unknow n unknown p_Date_CLIA_W 41 aived_ All protein_urin unknown negative unknown _118 unkno wn unknown e_semiquantit ative_dipstic k_ All glucose_urin unknown negative unknown _123 unkno wn unknown e_semiquantit ative All Erythrocytes unknown negative unknown _1394 unkno wn unknown _area_in_Urin 5-1 e_sediment_by _Microscopy_h igh_power_fie ld All chlamydia_DN unknown POSITIVE unknown _1472 unkno wn unknown A_probe 2 All Candida_krus unknown NEGATIVE unknown _1535 unkno wn unknown ei_by_Real-Ti 62 me_PCR All RBC_urine_di unknown negative unknown _1700 unkno wn unknown pstick 005 All Albumin_Pres unknown negative unknown _1753 unkno wn unknown ence_in_Urine -3 All Choriogonado unknown Negative unknown _2106 unkno wn unknown tropin_pregna -3 ncy_test_Pres ence_in_Urine All Chlamydia_tra unknown POSITIVE unknown _2161 unkno wn unknown chomatis_DNA_ 3-5 Presence_in_U nspecified_sp ecimen_by_NAA _with_probe_d etection All human_chorio unknown Negative unknown _2578 unkno wn unknown nic_gonadotro pin_urine_qua litative_urin e_pregnancy_t est_ All urine_color unknown yellow unknown _2751 unknown unknown All bilirubin_ur unknown negative unknown _319 unkno wn unknown ine All ketones_urin unknown negative unknown _322 unkno wn unknown e_by_test_str ip All nitrite_urin unknown negative unknown _323 unkno wn unknown e_semiquantit ative All pH_urine_sem unknown 5 unknown _324 unknown unknown iquantitative All specific_gra unknown 1.015 unknown _325 unknown unknown vity_urine All urobilinogen unknown negative unknown _326 unkno wn unknown _urine_semiqu antitative_di pstick_ All leukocyte_es unknown negative unknown _327 unkno wn unknown terase_urine_ by_dipstick All appearance_u unknown clear unknown _328 unknown unknown rine All urinalysis_r unknown Clean Catch unknown _47 un known unknown outine All culture_stat unknown Yes unknown _5101 unknown unknown us 5 All Appearance_o unknown clear unknown _5767 unknown unknown f_Urine -9 All Bilirubin.to unknown negative unknown _5770 unkno wn unknown tal_Presence_ -3 in_Urine_by_T est_strip All Color_of_Uri unknown yellow unknown _5778 unknown unknown ne -6 All Glucose_Mass unknown negative unknown _5792 unkno wn unknown _volume_in_Ur -7 ine_by_Test_s trip All Ketones_Mass unknown negative unknown _5797 unkno wn unknown _volume_in_Ur -6 ine_by_Test_s trip All Leukocyte_es unknown negative unknown _5799 unkno wn unknown terase_Presen -2 ce_in_Urine_b y_Test_strip All Nitrite_Pres unknown negative unknown _5802 unkno wn unknown ence_in_Urine -4 _by_Test_stri p All pH_of_Urine_ unknown 5 unknown _5803 unknown unknown by_Test_strip -2 All Specific_gra unknown 1.015 unknown _5811 unknown unknown vity_of_Urine -5 _by_Test_stri p All Urobilinogen unknown negative unknown _5818 unkno wn unknown _Presence_in_ -0 Urine_by_Test _strip All Candida_glab unknown NEGATIVE unknown _6956 unkno wn unknown rata_DNA_Pres 3-5 ence_in_Vagin al_fluid_by_N AA_with_probe _detection All T unknown POSITIVE unknown C.TRA unknown un known CH_DNA All T unknown NEGATIVE unknown C._GL unknown un known ABRATA _DNA All T unknown NEGATIVE unknown C._KR unknown un known USEI_D NA All CANDIDA_GLAB unknown NEGATIVE unknown CGLAB unkno wn unknown RATA_DNA RATA_D NA All CANDIDA_KRUS unknown NEGATIVE unknown CKRUS unkno wn unknown EI_DNA EI_DNA All CHLAMYDIA_TR unknown POSITIVE unknown CTDNA unkno wn unknown ACHOMATIS_DNA All T unknown NEGATIVE unknown T.VAG unknown un known INALIS _DNA All TRICHOMONAS_ unknown NEGATIVE unknown TVDNA unkno wn unknown VAGINALIS_DNA All DIPSTICK_URI unknown 5067 unknown _1014 unknown unknown NE_STRIP_LOT_ 00 NUMBER All Candida_glab unknown NEGATIVE unknown _1087 unkno wn unknown rata_by_Real- 87 time_PCR_-_va ginal_culture All TRICHOMONAS_ unknown NEGATIVE unknown _1130 unkno wn unknown VAGINALIS_DNA 02 _PROBE All Urine_HCG_Lo unknown 52402 unknown _1149 unknown unknown t_Number_CLIA 40 _Waived_ All Urine_HCG_Ex unknown 8. unknown _1149 unknow n unknown p_Date_CLIA_W 41 aived_ All protein_urin unknown negative unknown _118 unkno wn unknown e_semiquantit ative_dipstic k_ All glucose_urin unknown negative unknown _123 unkno wn unknown e_semiquantit ative All Erythrocytes unknown negative unknown _1394 unkno wn unknown _area_in_Urin 5-1 e_sediment_by _Microscopy_h igh_power_fie ld All chlamydia_DN unknown POSITIVE unknown _1472 unkno wn unknown A_probe 2 All Candida_krus unknown NEGATIVE unknown _1535 unkno wn unknown ei_by_Real-Ti 62 me_PCR All RBC_urine_di unknown negative unknown _1700 unkno wn unknown pstick 005 All Albumin_Pres unknown negative unknown _1753 unkno wn unknown ence_in_Urine -3 All Choriogonado unknown Negative unknown _2106 unkno wn unknown tropin_pregna -3 ncy_test_Pres ence_in_Urine All Chlamydia_tra unknown POSITIVE unknown _2161 unkno wn unknown chomatis_DNA_ 3-5 Presence_in_U nspecified_sp ecimen_by_NAA _with_probe_d etection All human_chorio unknown Negative unknown _2578 unkno wn unknown nic_gonadotro pin_urine_qua litative_urin e_pregnancy_t est_ All urine_color unknown yellow unknown _2751 unknown unknown All bilirubin_ur unknown negative unknown _319 unkno wn unknown ine All ketones_urin unknown negative unknown _322 unkno wn unknown e_by_test_str ip All nitrite_urin unknown negative unknown _323 unkno wn unknown e_semiquantit ative All pH_urine_sem unknown 5 unknown _324 unknown unknown iquantitative All specific_gra unknown 1.015 unknown _325 unknown unknown vity_urine All urobilinogen unknown negative unknown _326 unkno wn unknown _urine_semiqu antitative_di pstick_ All leukocyte_es unknown negative unknown _327 unkno wn unknown terase_urine_ by_dipstick All appearance_u unknown clear unknown _328 unknown unknown rine All urinalysis_r unknown Clean Catch unknown _47 un known unknown outine All culture_stat unknown Yes unknown _5101 unknown unknown us 5 All Appearance_o unknown clear unknown _5767 unknown unknown f_Urine -9 All Bilirubin.to unknown negative unknown _5770 unkno wn unknown tal_Presence_ -3 in_Urine_by_T est_strip All Color_of_Uri unknown yellow unknown _5778 unknown unknown ne -6 All Glucose_Mass unknown negative unknown _5792 unkno wn unknown _volume_in_Ur -7 ine_by_Test_s trip All Ketones_Mass unknown negative unknown _5797 unkno wn unknown _volume_in_Ur -6 ine_by_Test_s trip All Leukocyte_es unknown negative unknown _5799 unkno wn unknown terase_Presen -2 ce_in_Urine_b y_Test_strip All Nitrite_Pres unknown negative unknown _5802 unkno wn unknown ence_in_Urine -4 _by_Test_stri p All pH_of_Urine_ unknown 5 unknown _5803 unknown unknown by_Test_strip -2 All Specific_gra unknown 1.015 unknown _5811 unknown unknown vity_of_Urine -5 _by_Test_stri p All Urobilinogen unknown negative unknown _5818 unkno wn unknown _Presence_in_ -0 Urine_by_Test _strip All Candida_glab unknown NEGATIVE unknown _6956 unkno wn unknown rata_DNA_Pres 3-5 ence_in_Vagin al_fluid_by_N AA_with_probe _detection All T unknown POSITIVE unknown C.TRA unknown un known CH_DNA All T unknown NEGATIVE unknown C._GL unknown un known ABRATA _DNA All T unknown NEGATIVE unknown C._KR unknown un known USEI_D NA All CANDIDA_GLAB unknown NEGATIVE unknown CGLAB unkno wn unknown RATA_DNA RATA_D NA All CANDIDA_KRUS unknown NEGATIVE unknown CKRUS unkno wn unknown EI_DNA EI_DNA All CHLAMYDIA_TR unknown POSITIVE unknown CTDNA unkno wn unknown ACHOMATIS_DNA All T unknown NEGATIVE unknown T.VAG unknown un known INALIS _DNA All TRICHOMONAS_ unknown NEGATIVE unknown TVDNA unkno wn unknown VAGINALIS_DNA All DIPSTICK_URI unknown 5067 unknown _1014 unknown unknown NE_STRIP_LOT_ 00 NUMBER All Candida_glab unknown NEGATIVE unknown _1087 unkno wn unknown rata_by_Real- 87 time_PCR_-_va ginal_culture All TRICHOMONAS_ unknown NEGATIVE unknown _1130 unkno wn unknown VAGINALIS_DNA 02 _PROBE All Urine_HCG_Lo unknown 23359 unknown _1149 unknown unknown t_Number_CLIA 40 _Waived_ All Urine_HCG_Ex unknown 8 unknown _1149 unknow n unknown p_Date_CLIA_W 41 aived_ All protein_urin unknown negative unknown _118 unkno wn unknown e_semiquantit ative_dipstic k_ All glucose_urin unknown negative unknown _123 unkno wn unknown e_semiquantit ative All Erythrocytes unknown negative unknown _1394 unkno wn unknown _area_in_Urin 5-1 e_sediment_by _Microscopy_h igh_power_fie ld All chlamydia_DN unknown POSITIVE unknown _1472 unkno wn unknown A_probe 2 All Candida_krus unknown NEGATIVE unknown _1535 unkno wn unknown ei_by_Real-Ti 62 me_PCR All RBC_urine_di unknown negative unknown _1700 unkno wn unknown pstick 005 All Albumin_Pres unknown negative unknown _1753 unkno wn unknown ence_in_Urine -3 All Choriogonado unknown Negative unknown _2106 unkno wn unknown tropin_pregna -3 ncy_test_Pres ence_in_Urine All Chlamydia_tra unknown POSITIVE unknown _2161 unkno wn unknown chomatis_DNA_ 3-5 Presence_in_U nspecified_sp ecimen_by_NAA _with_probe_d etection All human_chorio unknown Negative unknown _2578 unkno wn unknown nic_gonadotro pin_urine_qua litative_urin e_pregnancy_t est_ All urine_color unknown yellow unknown _2751 unknown unknown All bilirubin_ur unknown negative unknown _319 unkno wn unknown ine All ketones_urin unknown negative unknown _322 unkno wn unknown e_by_test_str ip All nitrite_urin unknown negative unknown _323 unkno wn unknown e_semiquantit ative All pH_urine_sem unknown 5 unknown _324 unknown unknown iquantitative All specific_gra unknown 1.015 unknown _325 unknown unknown vity_urine All urobilinogen unknown negative unknown _326 unkno wn unknown _urine_semiqu antitative_di pstick_ All leukocyte_es unknown negative unknown _327 unkno wn unknown terase_urine_ by_dipstick All appearance_u unknown clear unknown _328 unknown unknown rine All urinalysis_r unknown Clean Catch unknown _47 un known unknown outine All culture_stat unknown Yes unknown _5101 unknown unknown us 5 All Appearance_o unknown clear unknown _5767 unknown unknown f_Urine -9 All Bilirubin.to unknown negative unknown _5770 unkno wn unknown tal_Presence_ -3 in_Urine_by_T est_strip All Color_of_Uri unknown yellow unknown _5778 unknown unknown ne -6 All Glucose_Mass unknown negative unknown _5792 unkno wn unknown _volume_in_Ur -7 ine_by_Test_s trip All Ketones_Mass unknown negative unknown _5797 unkno wn unknown _volume_in_Ur -6 ine_by_Test_s trip All Leukocyte_es unknown negative unknown _5799 unkno wn unknown terase_Presen -2 ce_in_Urine_b y_Test_strip All Nitrite_Pres unknown negative unknown _5802 unkno wn unknown ence_in_Urine -4 _by_Test_stri p All pH_of_Urine_ unknown 5 unknown _5803 unknown unknown by_Test_strip -2 All Specific_gra unknown 1.015 unknown _5811 unknown unknown vity_of_Urine -5 _by_Test_stri p All Urobilinogen unknown negative unknown _5818 unkno wn unknown _Presence_in_ -0 Urine_by_Test _strip All Candida_glab unknown NEGATIVE unknown _6956 unkno wn unknown rata_DNA_Pres 3-5 ence_in_Vagin al_fluid_by_N AA_with_probe _detection Vital Signs date measurement value source 20200702 BMI 29.18 kg/m2 20200702 BP_diastolic 80 mm[Hg] 20200702 BP_systolic 146 mm[Hg] 20200702 heart_rate 90 /min 20200702 height_metric 172.72 cm 20200702 height_standard 68 in 20200702 respiration_rate 18 /min 20200702 temperature_metric 36.5 C 20200702 temperature_standard 97.7 F 20200702 weight_metric 86.73 kg 20200702 weight_standard 191.2 lb 20200702 BMI 29.18 kg/m2 20200702 BP_diastolic 80 mm[Hg] 20200702 BP_systolic 146 mm[Hg] 20200702 heart_rate 90 /min 20200702 height_metric 172.72 cm 20200702 height_standard 68 in 20200702 respiration_rate 18 /min 20200702 temperature_metric 36.5 C 20200702 temperature_standard 97.7 F 20200702 weight_metric 86.73 kg [id number] weight_standard 191.2 lb date measurement value source 20200820 BMI 29.18 kg/m2 20200820 BP_diastolic 67 mm[Hg] [id number] BP_systolic 107 mm[Hg] 20200820 heart_rate 78 /min 20200820 height_metric 172.72 cm 20200820 height_standard 68 in 20200820 respiration_rate 12 /min 20200820 temperature_metric 36.83 C 20200820 temperature_standard 98.3 F 20200820 weight_metric 86.73 kg 20200820 weight_standard 191.2 lb [id number] BMI 29.18 kg/m2 20200820 BP_diastolic 67 mm[Hg] [id number] BP_systolic 107 mm[Hg] 20200820 heart_rate 78 /min 20200820 height_metric 172.72 cm 20200820 height_standard 68 in 20200820 respiration_rate 12 /min 20200820 temperature_metric 36.83 C 20200820 temperature_standard 98.3 F 20200820 weight_metric 86.73 kg 20200820 weight_standard 191.2 lb [id number] BMI 29.18 kg/m2 [id number] BP_diastolic 67 mm[Hg] [id number] BP_systolic 107 mm[Hg] [id number] heart_rate 78 /min 20200820 height_metric 172.72 cm 20200820 height_standard 68 in 20200820 respiration_rate 12 /min 20200820 temperature_metric 36.83 C 20200820 temperature_standard 98.3 F 20200820 weight_metric 86.73 kg 20200820 weight_standard 191.2 lb 20200820 BMI 29.18 kg/m2 20200820 BP_diastolic 67 mm[Hg] 20200820 BP_systolic 107 mm[Hg] 20200820 heart_rate 78 /min 20200820 height_metric 172.72 cm 20200820 height_standard 68 in 20200820 respiration_rate 12 /min 20200820 temperature_metric 36.83 C 20200820 temperature_standard 98.3 F 20200820 weight_metric 86.73 kg 20200820 weight_standard 191.2 lb Social History date description facility [id number]
--- OUTSIDE RECORDS SUMMARY | 2020-08-26 02:04 | EXTERNAL MEDICAL SUMMARY RPT | Continuity of Care Document ---
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 Unavailable Problems date description facility [id number] [facility] [id number] [facility] [id number] blood in urine, abd [facility] [id number] CHLAM, NEISSERIA, TRICH DNA All [id number] Current every day smoker All [id number] Vaginitis Pathogens-Affirm PLANNING SPECIALIST III All 02544208 Alcohol use All 70438619 Urine C&S All 11244529 Alcohol intake All 42870464 Details of drug misuse behavior All [id number] CHLAM, NEISSERIA, TRICH DNA All 80235215 Current every day smoker All 25438268 Details of drug misuse behavior All 71040242 Other specified noninflammatory All disorders of vagina 65821573 Urine C&S All 45573818 Vaginal discharge All 57288837 Vaginitis Pathogens-Affirm PLANNING SPECIALIST III All 25580235 Alcohol use All 85755343 Leukorrhea, not specified as infective All Medications date description facility 93002274 [facility] All 36382369 DOXYCYCLINE HYCLATE All 13126281 DOXYCYCLINE HYCLATE All [id number] [facility] All 27611860 [facility] All 67516053 DOXYCYCLINE HYCLATE All 36093712 DOXYCYCLINE HYCLATE All 76458134 [facility] All 60038692 [facility] All 87604656 DOXYCYCLINE HYCLATE All 80431694 DOXYCYCLINE HYCLATE All 06085463 [facility] All Procedures date description facility 02085817 URINE DIP All date description facility 33683582 URINE DIP All date description facility 05747052 URINE DIP All date description facility 07722121 URINE DIP All date description facility 38132873 URINE DIP All date description facility 69810400 [facility] All date description facility 64681567 [facility] D[facility] All date description facility 44246837 [facility] D[facility] All date description facility 88668025 [facility] D[facility] All Results test status date ordered by attending specimen mai e T unknown [id number] unknown unknown unknown T unknown 04254947 unknown unknown unknown CANDIDA_GLABRATA_DNA unknown 07777610 unknown unknown un known CANDIDA_KRUSEI_DNA unknown 50982835 unknown unknown unkn own DIPSTICK_URINE_STRIP_L unknown 43540798 unknown unknown unknown OT_NUMBER Candida_glabrata_by_Re unknown 47452041 unknown unknown unknown xl-mdct_AJG_-_wyeudrm_f ulture protein_urine_semiquan unknown 28433294 unknown unknown unknown titative_dipstick_ glucose_urine_semiquan unknown 07607359 unknown unknown unknown titative Erythrocytes_area_in_U unknown 12214126 unknown unknown unknown rine_sediment_by_Micros copy_high_power_field Candida_krusei_by_Real unknown 52654094 unknown unknown unknown -Time_PCR RBC_urine_dipstick unknown 45041256 unknown unknown unkn own Albumin_Presence_in_Ur unknown 86178908 unknown unknown unknown ine urine_color unknown 75000645 unknown unknown unknown bilirubin_urine unknown 77260849 unknown unknown unknown ketones_urine_by_test_ unknown 56739195 unknown unknown unknown strip nitrite_urine_semiquan unknown 38299187 unknown unknown unknown titative pH_urine_semiquantitat unknown 34804245 unknown unknown unknown jason specific_gravity_urine unknown 32495662 unknown unknown unknown urobilinogen_urine_sem unknown 52239913 unknown unknown unknown iquantitative_dipstick_ leukocyte_esterase_uri unknown 39603510 unknown unknown unknown ne_by_dipstick appearance_urine unknown 94645837 unknown unknown unknow n urinalysis_routine unknown 32214579 unknown unknown unkn own Appearance_of_Urine unknown 56970323 unknown unknown unk nown Bilirubin.total_Presen unknown 68550950 unknown unknown unknown ce_in_Urine_by_Test_str ip Color_of_Urine unknown 88653027 unknown unknown unknown Glucose_Mass_volume_in unknown 40785872 unknown unknown unknown _Urine_by_Test_strip Ketones_Mass_volume_in unknown 40531771 unknown unknown unknown _Urine_by_Test_strip Leukocyte_esterase_Pre unknown 38478027 unknown unknown unknown sence_in_Urine_by_Test_ strip Nitrite_Presence_in_Ur unknown 85443627 unknown unknown unknown ine_by_Test_strip pH_of_Urine_by_Test_st unknown 62299863 unknown unknown unknown rip Specific_gravity_of_Ur unknown 27461047 unknown unknown unknown ine_by_Test_strip Urobilinogen_Presence_ unknown 43172042 unknown unknown unknown in_Urine_by_Test_strip Candida_glabrata_DNA_P unknown 92653932 unknown unknown unknown resence_in_Vaginal_flui d_by_NAA_with_probe_det ection T unknown 91627068 unknown unknown unknown T unknown 95573614 unknown unknown unknown CANDIDA_GLABRATA_DNA unknown 91551588 unknown unknown un known CANDIDA_KRUSEI_DNA unknown 15141849 unknown unknown unkn own Candida_glabrata_by_Re unknown 84513592 unknown unknown unknown px-wpmf_VXU_-_zlccbdh_p ulture Candida_krusei_by_Real unknown 76826901 unknown unknown unknown -Time_PCR Candida_glabrata_DNA_P unknown 35980634 unknown unknown unknown resence_in_Vaginal_flui d_by_NAA_with_probe_det ection T unknown 34481609 unknown unknown unknown T unknown 01312384 unknown unknown unknown CANDIDA_GLABRATA_DNA unknown 82703150 unknown unknown un known CANDIDA_KRUSEI_DNA unknown 81678690 unknown unknown unkn own DIPSTICK_URINE_STRIP_L unknown 26128026 unknown unknown unknown OT_NUMBER Candida_glabrata_by_Re unknown 24367548 unknown unknown unknown er-xepy_EGQ_-_wqgirmo_t ulture protein_urine_semiquan unknown 49534021 unknown unknown unknown titative_dipstick_ glucose_urine_semiquan unknown 22036544 unknown unknown unknown titative Erythrocytes_area_in_U unknown 87149927 unknown unknown unknown rine_sediment_by_Micros copy_high_power_field Candida_krusei_by_Real unknown 07382236 unknown unknown unknown -Time_PCR RBC_urine_dipstick unknown 26971638 unknown unknown unkn own Albumin_Presence_in_Ur unknown 33934824 unknown unknown unknown ine urine_color unknown 63904016 unknown unknown unknown bilirubin_urine unknown 87188591 unknown unknown unknown ketones_urine_by_test_ unknown 45555774 unknown unknown unknown strip nitrite_urine_semiquan unknown 68364487 unknown unknown unknown titative pH_urine_semiquantitat unknown 83082305 unknown unknown unknown jason specific_gravity_urine unknown 12549603 unknown unknown unknown urobilinogen_urine_sem unknown 90155645 unknown unknown unknown iquantitative_dipstick_ leukocyte_esterase_uri unknown 07935341 unknown unknown unknown ne_by_dipstick appearance_urine unknown 63808732 unknown unknown unknow n urinalysis_routine unknown 82690172 unknown unknown unkn own Appearance_of_Urine unknown 21256362 unknown unknown unk nown Bilirubin.total_Presen unknown 49194437 unknown unknown unknown ce_in_Urine_by_Test_str ip Color_of_Urine unknown 89938891 unknown unknown unknown Glucose_Mass_volume_in unknown 14171115 unknown unknown unknown _Urine_by_Test_strip Ketones_Mass_volume_in unknown 91882719 unknown unknown unknown _Urine_by_Test_strip Leukocyte_esterase_Pre unknown 24414756 unknown unknown unknown sence_in_Urine_by_Test_ strip Nitrite_Presence_in_Ur unknown 80751097 unknown unknown unknown ine_by_Test_strip pH_of_Urine_by_Test_st unknown 51989794 unknown unknown unknown rip Specific_gravity_of_Ur unknown 02115142 unknown unknown unknown ine_by_Test_strip Urobilinogen_Presence_ unknown 73614428 unknown unknown unknown in_Urine_by_Test_strip Candida_glabrata_DNA_P unknown 96920663 unknown unknown unknown resence_in_Vaginal_flui d_by_NAA_with_probe_det ection DIPSTICK_URINE_STRIP_L unknown 95688551 unknown unknown unknown OT_NUMBER Urine_HCG_Lot_Number_C unknown 99381167 unknown unknown unknown LIA_Waived_ Urine_HCG_Exp_Date_CLI unknown 49277341 unknown unknown unknown A_Waived_ protein_urine_semiquan unknown 33348429 unknown unknown unknown titative_dipstick_ glucose_urine_semiquan unknown 96037379 unknown unknown unknown titative Erythrocytes_area_in_U unknown 17028437 unknown unknown unknown rine_sediment_by_Micros copy_high_power_field RBC_urine_dipstick unknown 15423107 unknown unknown unkn own Albumin_Presence_in_Ur unknown 54434896 unknown unknown unknown ine Choriogonadotropin_pre unknown 06289897 unknown unknown unknown gnancy_test_Presence_in _Urine human_chorionic_gonado unknown 35421153 unknown unknown unknown tropin_urine_qualitativ e_urine_pregnancy_test_ urine_color unknown 55033007 unknown unknown unknown bilirubin_urine unknown 28150877 unknown unknown unknown ketones_urine_by_test_ unknown 58388976 unknown unknown unknown strip nitrite_urine_semiquan unknown 22215934 unknown unknown unknown titative pH_urine_semiquantitat unknown 14924573 unknown unknown unknown jason specific_gravity_urine unknown 97880049 unknown unknown unknown urobilinogen_urine_sem unknown 39776024 unknown unknown unknown iquantitative_dipstick_ leukocyte_esterase_uri unknown 33508522 unknown unknown unknown ne_by_dipstick appearance_urine unknown 23348017 unknown unknown unknow n urinalysis_routine unknown 28346306 unknown unknown unkn own culture_status unknown 37173231 unknown unknown unknown Appearance_of_Urine unknown 06782919 unknown unknown unk nown Bilirubin.total_Presen unknown 42370066 unknown unknown unknown ce_in_Urine_by_Test_str ip Color_of_Urine unknown 50208947 unknown unknown unknown Glucose_Mass_volume_in unknown 04623175 unknown unknown unknown _Urine_by_Test_strip Ketones_Mass_volume_in unknown 23830860 unknown unknown unknown _Urine_by_Test_strip Leukocyte_esterase_Pre unknown 54952190 unknown unknown unknown sence_in_Urine_by_Test_ strip Nitrite_Presence_in_Ur unknown 51472487 unknown unknown unknown ine_by_Test_strip pH_of_Urine_by_Test_st unknown 68891730 unknown unknown unknown rip Specific_gravity_of_Ur unknown 81727145 unknown unknown unknown ine_by_Test_strip Urobilinogen_Presence_ unknown 06827541 unknown unknown unknown in_Urine_by_Test_strip T unknown 58709725 unknown unknown unknown T unknown 60138199 unknown unknown unknown T unknown 78131247 unknown unknown unknown CANDIDA_GLABRATA_DNA unknown 22026556 unknown unknown un known CANDIDA_KRUSEI_DNA unknown 29831006 unknown unknown unkn own CHLAMYDIA_TRACHOMATIS_ unknown 85587398 unknown unknown unknown DNA T unknown 18579754 unknown unknown unknown TRICHOMONAS_VAGINALIS_ unknown 28725144 unknown unknown unknown DNA DIPSTICK_URINE_STRIP_L unknown 57237177 unknown unknown unknown OT_NUMBER Candida_glabrata_by_Re unknown 10358683 unknown unknown unknown fi-kbtb_NER_-_dkntebg_n ulture TRICHOMONAS_VAGINALIS_ unknown 88546984 unknown unknown unknown DNA_PROBE Urine_HCG_Lot_Number_C unknown 25001946 unknown unknown unknown LIA_Waived_ Urine_HCG_Exp_Date_CLI unknown 70773864 unknown unknown unknown A_Waived_ protein_urine_semiquan unknown 17008933 unknown unknown unknown titative_dipstick_ glucose_urine_semiquan unknown 34700375 unknown unknown unknown titative Erythrocytes_area_in_U unknown 11913631 unknown unknown unknown rine_sediment_by_Micros copy_high_power_field chlamydia_DNA_probe unknown 05706652 unknown unknown unk nown Candida_krusei_by_Real unknown 66684077 unknown unknown unknown -Time_PCR RBC_urine_dipstick unknown 01173088 unknown unknown unkn own Albumin_Presence_in_Ur unknown 78502575 unknown unknown unknown ine Choriogonadotropin_pre unknown 95862467 unknown unknown unknown gnancy_test_Presence_in _Urine Chlamydia_trachomatis_ unknown 47005208 unknown unknown unknown DNA_Presence_in_Unspeci fied_specimen_by_NAA_wi th_probe_detection human_chorionic_gonado unknown 67213212 unknown unknown unknown tropin_urine_qualitativ e_urine_pregnancy_test_ urine_color unknown 37449562 unknown unknown unknown bilirubin_urine unknown 02742150 unknown unknown unknown ketones_urine_by_test_ unknown 29567919 unknown unknown unknown strip nitrite_urine_semiquan unknown 54707438 unknown unknown unknown titative pH_urine_semiquantitat unknown 55685189 unknown unknown unknown jason specific_gravity_urine unknown 07285201 unknown unknown unknown urobilinogen_urine_sem unknown 02540079 unknown unknown unknown iquantitative_dipstick_ leukocyte_esterase_uri unknown 16371399 unknown unknown unknown ne_by_dipstick appearance_urine unknown 51063155 unknown unknown unknow n urinalysis_routine unknown 68684128 unknown unknown unkn own culture_status unknown 51346727 unknown unknown unknown Appearance_of_Urine unknown 90732571 unknown unknown unk nown Bilirubin.total_Presen unknown 65190131 unknown unknown unknown ce_in_Urine_by_Test_str ip Color_of_Urine unknown 29262809 unknown unknown unknown Glucose_Mass_volume_in unknown 63028730 unknown unknown unknown _Urine_by_Test_strip Ketones_Mass_volume_in unknown 94169970 unknown unknown unknown _Urine_by_Test_strip Leukocyte_esterase_Pre unknown 63884277 unknown unknown unknown sence_in_Urine_by_Test_ strip Nitrite_Presence_in_Ur unknown 09389557 unknown unknown unknown ine_by_Test_strip pH_of_Urine_by_Test_st unknown 70253281 unknown unknown unknown rip Specific_gravity_of_Ur unknown 53661573 unknown unknown unknown ine_by_Test_strip Urobilinogen_Presence_ unknown 44009134 unknown unknown unknown in_Urine_by_Test_strip Candida_glabrata_DNA_P unknown 80291054 unknown unknown unknown resence_in_Vaginal_flui d_by_NAA_with_probe_det ection T unknown 70409931 unknown unknown unknown T unknown 11261166 unknown unknown unknown T unknown 19155826 unknown unknown unknown CANDIDA_GLABRATA_DNA unknown 55123881 unknown unknown un known CANDIDA_KRUSEI_DNA unknown 41728146 unknown unknown unkn own CHLAMYDIA_TRACHOMATIS_ unknown 14458891 unknown unknown unknown DNA T unknown 84314651 unknown unknown unknown TRICHOMONAS_VAGINALIS_ unknown 01397879 unknown unknown unknown DNA DIPSTICK_URINE_STRIP_L unknown 05835074 unknown unknown unknown OT_NUMBER Candida_glabrata_by_Re unknown 70376977 unknown unknown unknown yy-zgqt_YJB_-_brouxky_r ulture TRICHOMONAS_VAGINALIS_ unknown 64228262 unknown unknown unknown DNA_PROBE Urine_HCG_Lot_Number_C unknown 81262241 unknown unknown unknown LIA_Waived_ Urine_HCG_Exp_Date_CLI unknown 52982532 unknown unknown unknown A_Waived_ protein_urine_semiquan unknown 60329264 unknown unknown unknown titative_dipstick_ glucose_urine_semiquan unknown 03735622 unknown unknown unknown titative Erythrocytes_area_in_U unknown 96726604 unknown unknown unknown rine_sediment_by_Micros copy_high_power_field chlamydia_DNA_probe unknown 69097164 unknown unknown unk nown Candida_krusei_by_Real unknown 59469136 unknown unknown unknown -Time_PCR RBC_urine_dipstick unknown 62654316 unknown unknown unkn own Albumin_Presence_in_Ur unknown 11842620 unknown unknown unknown ine Choriogonadotropin_pre unknown 01863184 unknown unknown unknown gnancy_test_Presence_in _Urine Chlamydia_trachomatis_ unknown 85446823 unknown unknown unknown DNA_Presence_in_Unspeci fied_specimen_by_NAA_wi th_probe_detection human_chorionic_gonado unknown 22713407 unknown unknown unknown tropin_urine_qualitativ e_urine_pregnancy_test_ urine_color unknown 88241425 unknown unknown unknown bilirubin_urine unknown 19169902 unknown unknown unknown ketones_urine_by_test_ unknown 64661179 unknown unknown unknown strip nitrite_urine_semiquan unknown 69736197 unknown unknown unknown titative pH_urine_semiquantitat unknown 15201327 unknown unknown unknown jason specific_gravity_urine unknown 45368499 unknown unknown unknown urobilinogen_urine_sem unknown 98129862 unknown unknown unknown iquantitative_dipstick_ leukocyte_esterase_uri unknown 24807256 unknown unknown unknown ne_by_dipstick appearance_urine unknown 66042464 unknown unknown unknow n urinalysis_routine unknown 06081496 unknown unknown unkn own culture_status unknown 26964207 unknown unknown unknown Appearance_of_Urine unknown 18003272 unknown unknown unk nown Bilirubin.total_Presen unknown 74876231 unknown unknown unknown ce_in_Urine_by_Test_str ip Color_of_Urine unknown 67922808 unknown unknown unknown Glucose_Mass_volume_in unknown 18836987 unknown unknown unknown _Urine_by_Test_strip Ketones_Mass_volume_in unknown 00542097 unknown unknown unknown _Urine_by_Test_strip Leukocyte_esterase_Pre unknown 28360438 unknown unknown unknown sence_in_Urine_by_Test_ strip Nitrite_Presence_in_Ur unknown 70871987 unknown unknown unknown ine_by_Test_strip pH_of_Urine_by_Test_st unknown 23466481 unknown unknown unknown rip Specific_gravity_of_Ur unknown 20287933 unknown unknown unknown ine_by_Test_strip Urobilinogen_Presence_ unknown 71611756 unknown unknown unknown in_Urine_by_Test_strip Candida_glabrata_DNA_P unknown 78692943 unknown unknown unknown resence_in_Vaginal_flui d_by_NAA_with_probe_det ection T unknown 04961061 unknown unknown unknown T unknown 69039046 unknown unknown unknown T unknown 03971540 unknown unknown unknown CANDIDA_GLABRATA_DNA unknown 68862961 unknown unknown un known CANDIDA_KRUSEI_DNA unknown 30462153 unknown unknown unkn own CHLAMYDIA_TRACHOMATIS_ unknown 17397534 unknown unknown unknown DNA T unknown 59736174 unknown unknown unknown TRICHOMONAS_VAGINALIS_ unknown 25817412 unknown unknown unknown DNA DIPSTICK_URINE_STRIP_L unknown 51031950 unknown unknown unknown OT_NUMBER Candida_glabrata_by_Re unknown 95476897 unknown unknown unknown dk-eggb_KNM_-_rjwtwbs_n ulture TRICHOMONAS_VAGINALIS_ unknown 68487344 unknown unknown unknown DNA_PROBE Urine_HCG_Lot_Number_C unknown 61000835 unknown unknown unknown LIA_Waived_ Urine_HCG_Exp_Date_CLI unknown 05600070 unknown unknown unknown A_Waived_ protein_urine_semiquan unknown 33076694 unknown unknown unknown titative_dipstick_ glucose_urine_semiquan unknown 10818047 unknown unknown unknown titative Erythrocytes_area_in_U unknown 55609472 unknown unknown unknown rine_sediment_by_Micros copy_high_power_field chlamydia_DNA_probe unknown 00243278 unknown unknown unk nown Candida_krusei_by_Real unknown 17902861 unknown unknown unknown -Time_PCR RBC_urine_dipstick unknown 20937865 unknown unknown unkn own Albumin_Presence_in_Ur unknown 36020029 unknown unknown unknown ine Choriogonadotropin_pre unknown 01050124 unknown unknown unknown gnancy_test_Presence_in _Urine Chlamydia_trachomatis_ unknown 38477799 unknown unknown unknown DNA_Presence_in_Unspeci fied_specimen_by_NAA_wi th_probe_detection human_chorionic_gonado unknown 15346272 unknown unknown unknown tropin_urine_qualitativ e_urine_pregnancy_test_ urine_color unknown 60581920 unknown unknown unknown bilirubin_urine unknown 42230448 unknown unknown unknown ketones_urine_by_test_ unknown 59434124 unknown unknown unknown strip nitrite_urine_semiquan unknown 13464558 unknown unknown unknown titative pH_urine_semiquantitat unknown 89088544 unknown unknown unknown jason specific_gravity_urine unknown 78091915 unknown unknown unknown urobilinogen_urine_sem unknown 33931442 unknown unknown unknown iquantitative_dipstick_ leukocyte_esterase_uri unknown 53913333 unknown unknown unknown ne_by_dipstick appearance_urine unknown 30079043 unknown unknown unknow n urinalysis_routine unknown 98860381 unknown unknown unkn own culture_status unknown 14928071 unknown unknown unknown Appearance_of_Urine unknown 63857613 unknown unknown unk nown Bilirubin.total_Presen unknown 50236217 unknown unknown unknown ce_in_Urine_by_Test_str ip Color_of_Urine unknown 85160446 unknown unknown unknown Glucose_Mass_volume_in unknown 25429815 unknown unknown unknown _Urine_by_Test_strip Ketones_Mass_volume_in unknown 91077777 unknown unknown unknown _Urine_by_Test_strip Leukocyte_esterase_Pre unknown 54097047 unknown unknown unknown sence_in_Urine_by_Test_ strip Nitrite_Presence_in_Ur unknown 56581557 unknown unknown unknown ine_by_Test_strip pH_of_Urine_by_Test_st unknown 63300537 unknown unknown unknown rip Specific_gravity_of_Ur unknown 91823120 unknown unknown unknown ine_by_Test_strip Urobilinogen_Presence_ unknown 99270824 unknown unknown unknown in_Urine_by_Test_strip Candida_glabrata_DNA_P unknown 82209004 unknown unknown unknown resence_in_Vaginal_flui d_by_NAA_with_probe_det ection facility [...] unknown NE_STRIP_LOT_ 00 NUMBER All Urine_HCG_Lo unknown 90948 unknown _1149 unknown unknown t_Number_CLIA 40 _Waived_ [...] unknown VAGINALIS_DNA 02 _PROBE All Urine_HCG_Lo unknown 62689 unknown _1149 unknown unknown t_Number_CLIA 40 _Waived_ [...] unknown VAGINALIS_DNA 02 _PROBE All Urine_HCG_Lo unknown 13084 unknown _1149 unknown unknown t_Number_CLIA 40 _Waived_ [...] unknown VAGINALIS_DNA 02 _PROBE All Urine_HCG_Lo unknown 03714 unknown _1149 unknown unknown t_Number_CLIA 40 _Waived_ [...] temperature_standard 97.7 F 20200702 weight_metric 86.73 kg 09225524 weight_standard 191.2 lb date measurement value source 20200820 BMI 29.18 kg/m2 20200820 BP_diastolic 67 mm[Hg] 76916327 BP_systolic 107 mm[Hg] 20200820 heart_rate 78 /min 20200820 height_metric 172.72 cm 20200820 height_standard 68 in 20200820 respiration_rate 12 /min 20200820 temperature_metric 36.83 C 20200820 temperature_standard 98.3 F 20200820 weight_metric 86.73 kg 20200820 weight_standard 191.2 lb 88425193 BMI 29.18 kg/m2 20200820 BP_diastolic 67 mm[Hg] 45300466 BP_systolic 107 mm[Hg] 20200820 heart_rate 78 /min 20200820 height_metric 172.72 cm 20200820 height_standard 68 in 20200820 respiration_rate 12 /min 20200820 temperature_metric 36.83 C 20200820 temperature_standard 98.3 F 20200820 weight_metric 86.73 kg 20200820 weight_standard 191.2 lb 16207436 BMI 29.18 kg/m2 95020688 BP_diastolic 67 mm[Hg] 01444707 BP_systolic 107 mm[Hg] 02481930 heart_rate 78 /min 20200820 height_metric 172.72 cm [...] 191.2 lb Social History date description facility [id number]
== END 2020-08-20 23:59 | disposition home or self-care (01) ==
LOC: LAB.WCP 08:00
PROVIDERS: ATTEND Family Medicine
DX: N89.8 Other specified noninflammatory disorders of vagina (principal)
CPT/HCPCS: 87491; 87591; 87661; 87801

== ENCOUNTER 2020-08-25 15:39 | Outpatient (CLI) | payer BC ==
[2020-08-27 08:21] LABS: HIV AG/AB 4TH GEN NON-REACTIVE (NON-REACTIVE)
[2020-08-27 12:31] LABS: HEPATITIS C ANTIBODY NON-REACTIVE (NON-REACTIVE)
== END 2020-08-25 15:40 | disposition home or self-care (01) ==
LOC: LAB.N 15:39
PROVIDERS: ATTEND Family Medicine
DX: N89.8 Other specified noninflammatory disorders of vagina (principal); Z20.2 Contact with and (suspected) exposure to infections with a predominantly sexual mode of transmission
CPT/HCPCS: 36415; 86803; 87389

== ENCOUNTER 2020-09-03 13:03 | Outpatient (CLI) | payer BC ==
[2020-09-03 20:50] LABS: CHLAMYDIA TRACHOMATIS DNA NEGATIVE (NEGATIVE); NEISSERIA GONORRHOEAE DNA NEGATIVE (NEGATIVE); TRICHOMONAS VAGINALIS DNA NEGATIVE (NEGATIVE)
== END 2020-09-03 23:59 | disposition home or self-care (01) ==
LOC: LAB.R 13:03
PROVIDERS: ATTEND Family Medicine
DX: Z20.2 Contact with and (suspected) exposure to infections with a predominantly sexual mode of transmission (principal)
CPT/HCPCS: 87491; 87591; 87661

== ENCOUNTER 2020-09-25 20:02 | Emergency (ER) | payer BC ==
--- OUTSIDE RECORDS SUMMARY | 2020-09-25 20:07 | EXTERNAL MEDICAL SUMMARY RPT | Continuity of Care Document ---
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 FEED HOUSE Unavailable Unavailable MD Unavailable Unavailable Sandy Unavailable Unavailable Medications date description facility [id number] [facility] All [id number] [facility]XYCY[facility] HYCL[facility] All [id number] DOXYCYCLINE HYCLATE All [id number] [facility] All [id number] [facility] All [id number] DOXYCYCLINE HYCLATE All [id number] DOXYCYCLINE HYCLATE All [id number] [facility] All [id number] [facility] All [id number] DOXYCYCLINE HYCLATE All [id number] DOXYCYCLINE HYCLATE All [id number] [facility] All Problems date description facility [id number] Leukorrhea, not specified as infective All [id number] Alcohol use All 66467851 Vaginitis Pathogens-Affirm [facility] [employer] All [id number] Vaginal discharge All 74113044 Urine C&S All 08634714 Other specified noninflammatory disorde rs of vagina All 17162431 Details of drug misuse behavior All 88927374 Current every day smoker All [id number] CHLAM, NEISSERIA, TRICH DNA All [id number] Details of drug misuse behavior All 86430424 Alcohol intake All 13869344 Urine C&S All 04172149 Alcohol use All 91616611 Vaginitis Pathogens-[facility] [employer] All 15119908 Current every day smoker All [id number] CHLAM, NEISSERIA, TRICH DNA All Procedures date description facility [id number] POC URINALYSIS DIP All [id number] POC URINALYSIS DIP All 80409957 POC URINALYSIS DIP All 77225383 POC URINALYSIS DIP All 79280885 URINE DIP All [id number] URINE DIP All 78044932 URINE DIP All 74703372 URINE DIP All 53770281 URINE DIP All Results test status date ordered by attending specimen mai e Candida_glabrata_DNA_P unknown [id number] unknown unknown unknown resence_in_Vaginal_flui d_by_NAA_with_probe_det ection Urobilinogen_Presence_ unknown 92836122 unknown unknown unknown in_Urine_by_Test_strip Specific_gravity_of_Ur unknown 64400082 unknown unknown unknown ine_by_Test_strip pH_of_Urine_by_Test_st unknown 46837946 unknown unknown unknown rip Nitrite_Presence_in_Ur unknown 86216070 unknown unknown unknown ine_by_Test_strip Leukocyte_esterase_Pre unknown 65299353 unknown unknown unknown sence_in_Urine_by_Test_ strip Ketones_Mass_volume_in unknown 19544288 unknown unknown unknown _Urine_by_Test_strip Glucose_Mass_volume_in unknown 71397428 unknown unknown unknown _Urine_by_Test_strip Color_of_Urine unknown 24871197 unknown unknown unknown Bilirubin.total_Presen unknown 92211515 unknown unknown unknown ce_in_Urine_by_Test_str ip Appearance_of_Urine unknown 78290181 unknown unknown unk nown culture_status unknown 19930825 unknown unknown unknown urinalysis_routine unknown 12432796 unknown unknown unkn own appearance_urine unknown 21670275 unknown unknown unknow n leukocyte_esterase_uri unknown 28468125 unknown unknown unknown ne_by_dipstick urobilinogen_urine_sem unknown 01133198 unknown unknown unknown iquantitative_dipstick_ specific_gravity_urine unknown 20632194 unknown unknown unknown pH_urine_semiquantitat unknown 59515821 unknown unknown unknown jason nitrite_urine_semiquan unknown 99959397 unknown unknown unknown titative ketones_urine_by_test_ unknown 73709937 unknown unknown unknown strip bilirubin_urine unknown 95309327 unknown unknown unknown urine_color unknown 41700127 unknown unknown unknown human_chorionic_gonado unknown 56837084 unknown unknown unknown tropin_urine_qualitativ e_urine_pregnancy_test_ Chlamydia_trachomatis_D unknown 80316606 unknown unknown unknown NA_Presence_in_Unspecif ied_specimen_by_NAA_wit h_probe_detection Choriogonadotropin_pre unknown 50366319 unknown unknown unknown gnancy_test_Presence_in _Urine Albumin_Presence_in_Ur unknown 52743941 unknown unknown unknown ine RBC_urine_dipstick unknown 82761288 unknown unknown unkn own Candida_krusei_by_Real unknown 30673466 unknown unknown unknown -Time_PCR chlamydia_DNA_probe unknown 74862655 unknown unknown unk nown Erythrocytes_area_in_U unknown 08155529 unknown unknown unknown rine_sediment_by_Micros copy_high_power_field glucose_urine_semiquan unknown 96889092 unknown unknown unknown titative protein_urine_semiquan unknown 64396709 unknown unknown unknown titative_dipstick_ Urine_HCG_Exp_Date_CLI unknown 20042340 unknown unknown unknown A_Waived_ Urine_HCG_Lot_Number_C unknown 73256385 unknown unknown unknown LIA_Waived_ TRICHOMONAS_VAGINALIS_ unknown 91875073 unknown unknown unknown DNA_PROBE Candida_glabrata_by_Re unknown 48112260 unknown unknown unknown jo-bjub_OZD_-_udypuqk_g ulture DIPSTICK_URINE_STRIP_L unknown 35923747 unknown unknown unknown OT_NUMBER TRICHOMONAS_VAGINALIS_ unknown 66333411 unknown unknown unknown DNA T unknown 49209861 unknown unknown unknown CHLAMYDIA_TRACHOMATIS_ unknown 69208220 unknown unknown unknown DNA CANDIDA_KRUSEI_DNA unknown 77450313 unknown unknown unkn own CANDIDA_GLABRATA_DNA unknown 79985790 unknown unknown un known T unknown 15923348 unknown unknown unknown T unknown 50181407 unknown unknown unknown T unknown 83297515 unknown unknown unknown Candida_glabrata_DNA_P unknown 31945419 unknown unknown unknown resence_in_Vaginal_flui d_by_NAA_with_probe_det ection Urobilinogen_Presence_ unknown 59084276 unknown unknown unknown in_Urine_by_Test_strip Specific_gravity_of_Ur unknown 93475945 unknown unknown unknown ine_by_Test_strip pH_of_Urine_by_Test_st unknown 41879969 unknown unknown unknown rip Nitrite_Presence_in_Ur unknown 06009446 unknown unknown unknown ine_by_Test_strip Leukocyte_esterase_Pre unknown 24848610 unknown unknown unknown sence_in_Urine_by_Test_ strip Ketones_Mass_volume_in unknown 42090069 unknown unknown unknown _Urine_by_Test_strip Glucose_Mass_volume_in unknown 87023055 unknown unknown unknown _Urine_by_Test_strip Color_of_Urine unknown 63530951 unknown unknown unknown Bilirubin.total_Presen unknown 50449484 unknown unknown unknown ce_in_Urine_by_Test_str ip Appearance_of_Urine unknown 29633563 unknown unknown unk nown culture_status unknown 90457884 unknown unknown unknown urinalysis_routine unknown 32850595 unknown unknown unkn own appearance_urine unknown 20929159 unknown unknown unknow n leukocyte_esterase_uri unknown 59779493 unknown unknown unknown ne_by_dipstick urobilinogen_urine_sem unknown 19885650 unknown unknown unknown iquantitative_dipstick_ specific_gravity_urine unknown 88722055 unknown unknown unknown pH_urine_semiquantitat unknown 87588707 unknown unknown unknown jason nitrite_urine_semiquan unknown 03240481 unknown unknown unknown titative ketones_urine_by_test_ unknown 08718632 unknown unknown unknown strip bilirubin_urine unknown 79562310 unknown unknown unknown urine_color unknown 97829357 unknown unknown unknown human_chorionic_gonado unknown 91719737 unknown unknown unknown tropin_urine_qualitativ e_urine_pregnancy_test_ Chlamydia_trachomatis_D unknown 07973760 unknown unknown unknown NA_Presence_in_Unspecif ied_specimen_by_NAA_wit h_probe_detection Choriogonadotropin_pre unknown 99541316 unknown unknown unknown gnancy_test_Presence_in _Urine Albumin_Presence_in_Ur unknown 09456377 unknown unknown unknown ine RBC_urine_dipstick unknown 61222785 unknown unknown unkn own Candida_krusei_by_Real unknown 91584461 unknown unknown unknown -Time_PCR chlamydia_DNA_probe unknown 97281030 unknown unknown unk nown Erythrocytes_area_in_U unknown 80026152 unknown unknown unknown rine_sediment_by_Micros copy_high_power_field glucose_urine_semiquan unknown 80767088 unknown unknown unknown titative protein_urine_semiquan unknown 37603075 unknown unknown unknown titative_dipstick_ Urine_HCG_Exp_Date_CLI unknown 81874633 unknown unknown unknown A_Waived_ Urine_HCG_Lot_Number_C unknown 19676978 unknown unknown unknown LIA_Waived_ TRICHOMONAS_VAGINALIS_ unknown 66658542 unknown unknown unknown DNA_PROBE Candida_glabrata_by_Re unknown 26906444 unknown unknown unknown yb-nudy_FCS_-_hsxmtha_x ulture DIPSTICK_URINE_STRIP_L unknown 68938920 unknown unknown unknown OT_NUMBER TRICHOMONAS_VAGINALIS_ unknown 97342211 unknown unknown unknown DNA T unknown 57368518 unknown unknown unknown CHLAMYDIA_TRACHOMATIS_ unknown 75676444 unknown unknown unknown DNA CANDIDA_KRUSEI_DNA unknown 94913560 unknown unknown unkn own CANDIDA_GLABRATA_DNA unknown 61793120 unknown unknown un known T unknown 08040358 unknown unknown unknown T unknown 03145356 unknown unknown unknown T unknown 61381542 unknown unknown unknown Candida_glabrata_DNA_P unknown 66107658 unknown unknown unknown resence_in_Vaginal_flui d_by_NAA_with_probe_det ection Urobilinogen_Presence_ unknown 46875179 unknown unknown unknown in_Urine_by_Test_strip Specific_gravity_of_Ur unknown 66227369 unknown unknown unknown ine_by_Test_strip pH_of_Urine_by_Test_st unknown 47645471 unknown unknown unknown rip Nitrite_Presence_in_Ur unknown 26009227 unknown unknown unknown ine_by_Test_strip Leukocyte_esterase_Pre unknown 64003505 unknown unknown unknown sence_in_Urine_by_Test_ strip Ketones_Mass_volume_in unknown 91335008 unknown unknown unknown _Urine_by_Test_strip Glucose_Mass_volume_in unknown 64903367 unknown unknown unknown _Urine_by_Test_strip Color_of_Urine unknown 55532209 unknown unknown unknown Bilirubin.total_Presen unknown 49804687 unknown unknown unknown ce_in_Urine_by_Test_str ip Appearance_of_Urine unknown 81123641 unknown unknown unk nown culture_status unknown 51080193 unknown unknown unknown urinalysis_routine unknown 14595790 unknown unknown unkn own appearance_urine unknown 82725566 unknown unknown unknow n leukocyte_esterase_uri unknown 14228762 unknown unknown unknown ne_by_dipstick urobilinogen_urine_sem unknown 77968371 unknown unknown unknown iquantitative_dipstick_ specific_gravity_urine unknown 10060035 unknown unknown unknown pH_urine_semiquantitat unknown 26773426 unknown unknown unknown jason nitrite_urine_semiquan unknown 88852548 unknown unknown unknown titative ketones_urine_by_test_ unknown 21047509 unknown unknown unknown strip bilirubin_urine unknown 56393600 unknown unknown unknown urine_color unknown 59093570 unknown unknown unknown human_chorionic_gonado unknown 23345566 unknown unknown unknown tropin_urine_qualitativ e_urine_pregnancy_test_ Chlamydia_trachomatis_D unknown 12386048 unknown unknown unknown NA_Presence_in_Unspecif ied_specimen_by_NAA_wit h_probe_detection Choriogonadotropin_pre unknown 39577506 unknown unknown unknown gnancy_test_Presence_in _Urine Albumin_Presence_in_Ur unknown 19046888 unknown unknown unknown ine RBC_urine_dipstick unknown 36828927 unknown unknown unkn own Candida_krusei_by_Real unknown 31760535 unknown unknown unknown -Time_PCR chlamydia_DNA_probe unknown 38207535 unknown unknown unk nown Erythrocytes_area_in_U unknown 93447755 unknown unknown unknown rine_sediment_by_Micros copy_high_power_field glucose_urine_semiquan unknown 19361550 unknown unknown unknown titative protein_urine_semiquan unknown 94553615 unknown unknown unknown titative_dipstick_ Urine_HCG_Exp_Date_CLI unknown 38123501 unknown unknown unknown A_Waived_ Urine_HCG_Lot_Number_C unknown 70081801 unknown unknown unknown LIA_Waived_ TRICHOMONAS_VAGINALIS_ unknown 17973710 unknown unknown unknown DNA_PROBE Candida_glabrata_by_Re unknown 38651368 unknown unknown unknown ll-pcvj_QVR_-_jfkqcjy_y ulture DIPSTICK_URINE_STRIP_L unknown 40382748 unknown unknown unknown OT_NUMBER TRICHOMONAS_VAGINALIS_ unknown 92779856 unknown unknown unknown DNA T unknown 21803300 unknown unknown unknown CHLAMYDIA_TRACHOMATIS_ unknown 98099828 unknown unknown unknown DNA CANDIDA_KRUSEI_DNA unknown 31852908 unknown unknown unkn own CANDIDA_GLABRATA_DNA unknown 35832873 unknown unknown un known T unknown 05765963 unknown unknown unknown T unknown 05362295 unknown unknown unknown T unknown 62220063 unknown unknown unknown Urobilinogen_Presence_ unknown 61867559 unknown unknown unknown in_Urine_by_Test_strip Specific_gravity_of_Ur unknown 70128000 unknown unknown unknown ine_by_Test_strip pH_of_Urine_by_Test_st unknown 24203255 unknown unknown unknown rip Nitrite_Presence_in_Ur unknown 76453249 unknown unknown unknown ine_by_Test_strip Leukocyte_esterase_Pre unknown 64049222 unknown unknown unknown sence_in_Urine_by_Test_ strip Ketones_Mass_volume_in unknown 35166600 unknown unknown unknown _Urine_by_Test_strip Glucose_Mass_volume_in unknown 64483987 unknown unknown unknown _Urine_by_Test_strip Color_of_Urine unknown 66335741 unknown unknown unknown Bilirubin.total_Presen unknown 55162039 unknown unknown unknown ce_in_Urine_by_Test_str ip Appearance_of_Urine unknown 16085540 unknown unknown unk nown culture_status unknown 90473431 unknown unknown unknown urinalysis_routine unknown 81377836 unknown unknown unkn own appearance_urine unknown 77596744 unknown unknown unknow n leukocyte_esterase_uri unknown 45005570 unknown unknown unknown ne_by_dipstick urobilinogen_urine_sem unknown 56816106 unknown unknown unknown iquantitative_dipstick_ specific_gravity_urine unknown 60307457 unknown unknown unknown pH_urine_semiquantitat unknown 78469850 unknown unknown unknown jason nitrite_urine_semiquan unknown 37229275 unknown unknown unknown titative ketones_urine_by_test_ unknown 63698085 unknown unknown unknown strip bilirubin_urine unknown 13019897 unknown unknown unknown urine_color unknown 69600534 unknown unknown unknown human_chorionic_gonado unknown 02780090 unknown unknown unknown tropin_urine_qualitativ e_urine_pregnancy_test_ Choriogonadotropin_pre unknown 07159513 unknown unknown unknown gnancy_test_Presence_in _Urine Albumin_Presence_in_Ur unknown 54822972 unknown unknown unknown ine RBC_urine_dipstick unknown 59623820 unknown unknown unkn own Erythrocytes_area_in_U unknown 42655815 unknown unknown unknown rine_sediment_by_Micros copy_high_power_field glucose_urine_semiquan unknown 05870332 unknown unknown unknown titative protein_urine_semiquan unknown 70101814 unknown unknown unknown titative_dipstick_ Urine_HCG_Exp_Date_CLI unknown 96069971 unknown unknown unknown A_Waived_ Urine_HCG_Lot_Number_C unknown 41645073 unknown unknown unknown LIA_Waived_ DIPSTICK_URINE_STRIP_L unknown 45012843 unknown unknown unknown OT_NUMBER Candida_glabrata_DNA_P unknown 17067779 unknown unknown unknown resence_in_Vaginal_flui d_by_NAA_with_probe_det ection Urobilinogen_Presence_ unknown 89939408 unknown unknown unknown in_Urine_by_Test_strip Specific_gravity_of_Ur unknown 60387934 unknown unknown unknown ine_by_Test_strip pH_of_Urine_by_Test_st unknown 09085278 unknown unknown unknown rip Nitrite_Presence_in_Ur unknown 54753565 unknown unknown unknown ine_by_Test_strip Leukocyte_esterase_Pre unknown 82119724 unknown unknown unknown sence_in_Urine_by_Test_ strip Ketones_Mass_volume_in unknown 67506258 unknown unknown unknown _Urine_by_Test_strip Glucose_Mass_volume_in unknown 67704701 unknown unknown unknown _Urine_by_Test_strip Color_of_Urine unknown 48801604 unknown unknown unknown Bilirubin.total_Presen unknown 09093764 unknown unknown unknown ce_in_Urine_by_Test_str ip Appearance_of_Urine unknown 37404882 unknown unknown unk nown urinalysis_routine unknown 90547469 unknown unknown unkn own appearance_urine unknown 56977637 unknown unknown unknow n leukocyte_esterase_uri unknown 98157523 unknown unknown unknown ne_by_dipstick urobilinogen_urine_sem unknown 91888547 unknown unknown unknown iquantitative_dipstick_ specific_gravity_urine unknown 67371488 unknown unknown unknown pH_urine_semiquantitat unknown 79795601 unknown unknown unknown jason nitrite_urine_semiquan unknown 84039836 unknown unknown unknown titative ketones_urine_by_test_ unknown 52528364 unknown unknown unknown strip bilirubin_urine unknown 41629867 unknown unknown unknown urine_color unknown 19821825 unknown unknown unknown Albumin_Presence_in_Ur unknown 70302059 unknown unknown unknown ine RBC_urine_dipstick unknown 34553773 unknown unknown unkn own Candida_krusei_by_Real unknown 30149668 unknown unknown unknown -Time_PCR Erythrocytes_area_in_U unknown 93299833 unknown unknown unknown rine_sediment_by_Micros copy_high_power_field glucose_urine_semiquan unknown 32254780 unknown unknown unknown titative protein_urine_semiquan unknown 86866488 unknown unknown unknown titative_dipstick_ Candida_glabrata_by_Re unknown 57386112 unknown unknown unknown wa-vqlz_NJG_-_iwifqqs_y ulture DIPSTICK_URINE_STRIP_L unknown 55152493 unknown unknown unknown OT_NUMBER CANDIDA_KRUSEI_DNA unknown 61468612 unknown unknown unkn own CANDIDA_GLABRATA_DNA unknown 43326690 unknown unknown un known T unknown 50528839 unknown unknown unknown T unknown 69169575 unknown unknown unknown Candida_glabrata_DNA_P unknown 54135842 unknown unknown unknown resence_in_Vaginal_flui d_by_NAA_with_probe_det ection Candida_krusei_by_Real unknown 94330235 unknown unknown unknown -Time_PCR Candida_glabrata_by_Re unknown 32308035 unknown unknown unknown af-tcnx_FRQ_-_iiypkfh_e ulture CANDIDA_KRUSEI_DNA unknown 42996327 unknown unknown unkn own CANDIDA_GLABRATA_DNA unknown 86427859 unknown unknown un known T unknown 00085458 unknown unknown unknown T unknown 73118271 unknown unknown unknown Candida_glabrata_DNA_P unknown 12685097 unknown unknown unknown resence_in_Vaginal_flui d_by_NAA_with_probe_det ection Urobilinogen_Presence_ unknown 58352937 unknown unknown unknown in_Urine_by_Test_strip Specific_gravity_of_Ur unknown 91077057 unknown unknown unknown ine_by_Test_strip pH_of_Urine_by_Test_st unknown 65018289 unknown unknown unknown rip Nitrite_Presence_in_Ur unknown 44420182 unknown unknown unknown ine_by_Test_strip Leukocyte_esterase_Pre unknown 27243981 unknown unknown unknown sence_in_Urine_by_Test_ strip Ketones_Mass_volume_in unknown 25822092 unknown unknown unknown _Urine_by_Test_strip Glucose_Mass_volume_in unknown 22221708 unknown unknown unknown _Urine_by_Test_strip Color_of_Urine unknown 48009482 unknown unknown unknown Bilirubin.total_Presen unknown 25889123 unknown unknown unknown ce_in_Urine_by_Test_str ip Appearance_of_Urine unknown 74299482 unknown unknown unk nown urinalysis_routine unknown 04010561 unknown unknown unkn own appearance_urine unknown 64129032 unknown unknown unknow n leukocyte_esterase_uri unknown 64539278 unknown unknown unknown ne_by_dipstick urobilinogen_urine_sem unknown 35808605 unknown unknown unknown iquantitative_dipstick_ specific_gravity_urine unknown 30247248 unknown unknown unknown pH_urine_semiquantitat unknown 83571641 unknown unknown unknown jason nitrite_urine_semiquan unknown 71428402 unknown unknown unknown titative ketones_urine_by_test_ unknown 52613606 unknown unknown unknown strip bilirubin_urine unknown 75595439 unknown unknown unknown urine_color unknown 16429514 unknown unknown unknown Albumin_Presence_in_Ur unknown 45227570 unknown unknown unknown ine RBC_urine_dipstick unknown 40833934 unknown unknown unkn own Candida_krusei_by_Real unknown 15860637 unknown unknown unknown -Time_PCR Erythrocytes_area_in_U unknown 33137778 unknown unknown unknown rine_sediment_by_Micros copy_high_power_field glucose_urine_semiquan unknown 89565864 unknown unknown unknown titative protein_urine_semiquan unknown 50233322 unknown unknown unknown titative_dipstick_ Candida_glabrata_by_Re unknown 67645165 unknown unknown unknown lk-jvhk_XDM_-_rhenwmo_s ulture DIPSTICK_URINE_STRIP_L unknown 88697073 unknown unknown unknown OT_NUMBER CANDIDA_KRUSEI_DNA unknown 14688414 unknown unknown unkn own CANDIDA_GLABRATA_DNA unknown 63765389 unknown unknown un known T unknown 62799081 unknown unknown unknown T unknown 89228586 unknown unknown unknown facility observation status value reference units lab abnor mal line range code notes All Candida_glab unknown NEGATIVE unknown _6956 unkno wn unknown rata_DNA_Pres 3-5 ence_in_Vagin al_fluid_by_N AA_with_probe _detection All Urobilinogen unknown negative unknown _5818 unkno wn unknown _Presence_in_ -0 Urine_by_Test _strip All Specific_gra unknown 1.015 unknown _5811 unknown unknown vity_of_Urine -5 _by_Test_stri p All pH_of_Urine_ unknown 5 unknown _5803 unknown unknown by_Test_strip -2 All Nitrite_Pres unknown negative unknown _5802 unkno wn unknown ence_in_Urine -4 _by_Test_stri p All Leukocyte_es unknown negative unknown _5799 unkno wn unknown terase_Presen -2 ce_in_Urine_b y_Test_strip All Ketones_Mass unknown negative unknown _5797 unkno wn unknown _volume_in_Ur -6 ine_by_Test_s trip All Glucose_Mass unknown negative unknown _5792 unkno wn unknown _volume_in_Ur -7 ine_by_Test_s trip All Color_of_Uri unknown yellow unknown _5778 unknown unknown ne -6 All Bilirubin.to unknown negative unknown _5770 unkno wn unknown tal_Presence_ -3 in_Urine_by_T est_strip All Appearance_o unknown clear unknown _5767 unknown unknown f_Urine -9 All culture_stat unknown Yes unknown _5101 unknown unknown us 5 All urinalysis_r unknown Clean Catch unknown _47 un known unknown outine All appearance_u unknown clear unknown _328 unknown unknown rine All leukocyte_es unknown negative unknown _327 unkno wn unknown terase_urine_ by_dipstick All urobilinogen unknown negative unknown _326 unkno wn unknown _urine_semiqu antitative_di pstick_ All specific_gra unknown 1.015 unknown _325 unknown unknown vity_urine All pH_urine_sem unknown 5 unknown _324 unknown unknown iquantitative All nitrite_urin unknown negative unknown _323 unkno wn unknown e_semiquantit ative All ketones_urin unknown negative unknown _322 unkno wn unknown e_by_test_str ip All bilirubin_ur unknown negative unknown _319 unkno wn unknown ine All urine_color unknown yellow unknown _2751 unknown unknown All human_chorio unknown Negative unknown _2578 unkno wn unknown nic_gonadotro pin_urine_qua litative_urin e_pregnancy_t est_ All Chlamydia_tra unknown POSITIVE unknown _2161 unkno wn unknown chomatis_DNA_ 3-5 Presence_in_U nspecified_sp ecimen_by_NAA _with_probe_d etection All Choriogonado unknown Negative unknown _2106 unkno wn unknown tropin_pregna -3 ncy_test_Pres ence_in_Urine All Albumin_Pres unknown negative unknown _1753 unkno wn unknown ence_in_Urine -3 All RBC_urine_di unknown negative unknown _1700 unkno wn unknown pstick 005 All Candida_krus unknown NEGATIVE unknown _1535 unkno wn unknown ei_by_Real-Ti 62 me_PCR All chlamydia_DN unknown POSITIVE unknown _1472 unkno wn unknown A_probe 2 All Erythrocytes unknown negative unknown _1394 unkno wn unknown _area_in_Urin 5-1 e_sediment_by _Microscopy_h igh_power_fie ld All glucose_urin unknown negative unknown _123 unkno wn unknown e_semiquantit ative All protein_urin unknown negative unknown _118 unkno wn unknown e_semiquantit ative_dipstic k_ All Urine_HCG_Ex unknown 8.31.22 unknown _1149 unknow n unknown p_Date_CLIA_W 41 aived_ All Urine_HCG_Lo unknown 45345 unknown _1149 unknown unknown t_Number_CLIA 40 _Waived_ All TRICHOMONAS_ unknown NEGATIVE unknown _1130 unkno wn unknown VAGINALIS_DNA 02 _PROBE All Candida_glab unknown NEGATIVE unknown _1087 unkno wn unknown rata_by_Real- 87 time_PCR_-_va ginal_culture All DIPSTICK_URI unknown 5067 unknown _1014 unknown unknown NE_STRIP_LOT_ 00 NUMBER All TRICHOMONAS_ unknown NEGATIVE unknown TVDNA unkno wn unknown VAGINALIS_DNA All T unknown NEGATIVE unknown T.VAG unknown un known INALIS _DNA All CHLAMYDIA_TR unknown POSITIVE unknown CTDNA unkno wn unknown ACHOMATIS_DNA All CANDIDA_KRUS unknown NEGATIVE unknown CKRUS unkno wn unknown EI_DNA EI_DNA All CANDIDA_GLAB unknown NEGATIVE unknown CGLAB unkno wn unknown RATA_DNA RATA_D NA All T unknown NEGATIVE unknown C._KR unknown un known USEI_D NA All T unknown NEGATIVE unknown C._GL unknown un known ABRATA _DNA All T unknown POSITIVE unknown C.TRA unknown un known CH_DNA All Candida_glab unknown NEGATIVE unknown _6956 unkno wn unknown rata_DNA_Pres 3-5 ence_in_Vagin al_fluid_by_N AA_with_probe _detection All Urobilinogen unknown negative unknown _5818 unkno wn unknown _Presence_in_ -0 Urine_by_Test _strip All Specific_gra unknown 1.015 unknown _5811 unknown unknown vity_of_Urine -5 _by_Test_stri p All pH_of_Urine_ unknown 5 unknown _5803 unknown unknown by_Test_strip -2 All Nitrite_Pres unknown negative unknown _5802 unkno wn unknown ence_in_Urine -4 _by_Test_stri p All Leukocyte_es unknown negative unknown _5799 unkno wn unknown terase_Presen -2 ce_in_Urine_b y_Test_strip All Ketones_Mass unknown negative unknown _5797 unkno wn unknown _volume_in_Ur -6 ine_by_Test_s trip All Glucose_Mass unknown negative unknown _5792 unkno wn unknown _volume_in_Ur -7 ine_by_Test_s trip All Color_of_Uri unknown yellow unknown _5778 unknown unknown ne -6 All Bilirubin.to unknown negative unknown _5770 unkno wn unknown tal_Presence_ -3 in_Urine_by_T est_strip All Appearance_o unknown clear unknown _5767 unknown unknown f_Urine -9 All culture_stat unknown Yes unknown _5101 unknown unknown us 5 All urinalysis_r unknown Clean Catch unknown _47 un known unknown outine All appearance_u unknown clear unknown _328 unknown unknown rine All leukocyte_es unknown negative unknown _327 unkno wn unknown terase_urine_ by_dipstick All urobilinogen unknown negative unknown _326 unkno wn unknown _urine_semiqu antitative_di pstick_ All specific_gra unknown 1.015 unknown _325 unknown unknown vity_urine All pH_urine_sem unknown 5 unknown _324 unknown unknown iquantitative All nitrite_urin unknown negative unknown _323 unkno wn unknown e_semiquantit ative All ketones_urin unknown negative unknown _322 unkno wn unknown e_by_test_str ip All bilirubin_ur unknown negative unknown _319 unkno wn unknown ine All urine_color unknown yellow unknown _2751 unknown unknown All human_chorio unknown Negative unknown _2578 unkno wn unknown nic_gonadotro pin_urine_qua litative_urin e_pregnancy_t est_ All Chlamydia_tra unknown POSITIVE unknown _2161 unkno wn unknown chomatis_DNA_ 3-5 Presence_in_U nspecified_sp ecimen_by_NAA _with_probe_d etection All Choriogonado unknown Negative unknown _2106 unkno wn unknown tropin_pregna -3 ncy_test_Pres ence_in_Urine All Albumin_Pres unknown negative unknown _1753 unkno wn unknown ence_in_Urine -3 All RBC_urine_di unknown negative unknown _1700 unkno wn unknown pstick 005 All Candida_krus unknown NEGATIVE unknown _1535 unkno wn unknown ei_by_Real-Ti 62 me_PCR All chlamydia_DN unknown POSITIVE unknown _1472 unkno wn unknown A_probe 2 All Erythrocytes unknown negative unknown _1394 unkno wn unknown _area_in_Urin 5-1 e_sediment_by _Microscopy_h igh_power_fie ld All glucose_urin unknown negative unknown _123 unkno wn unknown e_semiquantit ative All protein_urin unknown negative unknown _118 unkno wn unknown e_semiquantit ative_dipstic k_ All Urine_HCG_Ex unknown 8.31.22 unknown _1149 unknow n unknown p_Date_CLIA_W 41 aived_ All Urine_HCG_Lo unknown 70279 unknown _1149 unknown unknown t_Number_CLIA 40 _Waived_ All TRICHOMONAS_ unknown NEGATIVE unknown _1130 unkno wn unknown VAGINALIS_DNA 02 _PROBE All Candida_glab unknown NEGATIVE unknown _1087 unkno wn unknown rata_by_Real- 87 time_PCR_-_va ginal_culture All DIPSTICK_URI unknown 5067 unknown _1014 unknown unknown NE_STRIP_LOT_ 00 NUMBER All TRICHOMONAS_ unknown NEGATIVE unknown TVDNA unkno wn unknown VAGINALIS_DNA All T unknown NEGATIVE unknown T.VAG unknown un known INALIS _DNA All CHLAMYDIA_TR unknown POSITIVE unknown CTDNA unkno wn unknown ACHOMATIS_DNA All CANDIDA_KRUS unknown NEGATIVE unknown CKRUS unkno wn unknown EI_DNA EI_DNA All CANDIDA_GLAB unknown NEGATIVE unknown CGLAB unkno wn unknown RATA_DNA RATA_D NA All T unknown NEGATIVE unknown C._KR unknown un known USEI_D NA All T unknown NEGATIVE unknown C._GL unknown un known ABRATA _DNA All T unknown POSITIVE unknown C.TRA unknown un known CH_DNA All Candida_glab unknown NEGATIVE unknown _6956 unkno wn unknown rata_DNA_Pres 3-5 ence_in_Vagin al_fluid_by_N AA_with_probe _detection All Urobilinogen unknown negative unknown _5818 unkno wn unknown _Presence_in_ -0 Urine_by_Test _strip All Specific_gra unknown 1.015 unknown _5811 unknown unknown vity_of_Urine -5 _by_Test_stri p All pH_of_Urine_ unknown 5 unknown _5803 unknown unknown by_Test_strip -2 All Nitrite_Pres unknown negative unknown _5802 unkno wn unknown ence_in_Urine -4 _by_Test_stri p All Leukocyte_es unknown negative unknown _5799 unkno wn unknown terase_Presen -2 ce_in_Urine_b y_Test_strip All Ketones_Mass unknown negative unknown _5797 unkno wn unknown _volume_in_Ur -6 ine_by_Test_s trip All Glucose_Mass unknown negative unknown _5792 unkno wn unknown _volume_in_Ur -7 ine_by_Test_s trip All Color_of_Uri unknown yellow unknown _5778 unknown unknown ne -6 All Bilirubin.to unknown negative unknown _5770 unkno wn unknown tal_Presence_ -3 in_Urine_by_T est_strip All Appearance_o unknown clear unknown _5767 unknown unknown f_Urine -9 All culture_stat unknown Yes unknown _5101 unknown unknown us 5 All urinalysis_r unknown Clean Catch unknown _47 un known unknown outine All appearance_u unknown clear unknown _328 unknown unknown rine All leukocyte_es unknown negative unknown _327 unkno wn unknown terase_urine_ by_dipstick All urobilinogen unknown negative unknown _326 unkno wn unknown _urine_semiqu antitative_di pstick_ All specific_gra unknown 1.015 unknown _325 unknown unknown vity_urine All pH_urine_sem unknown 5 unknown _324 unknown unknown iquantitative All nitrite_urin unknown negative unknown _323 unkno wn unknown e_semiquantit ative All ketones_urin unknown negative unknown _322 unkno wn unknown e_by_test_str ip All bilirubin_ur unknown negative unknown _319 unkno wn unknown ine All urine_color unknown yellow unknown _2751 unknown unknown All human_chorio unknown Negative unknown _2578 unkno wn unknown nic_gonadotro pin_urine_qua litative_urin e_pregnancy_t est_ All Chlamydia_tra unknown POSITIVE unknown _2161 unkno wn unknown chomatis_DNA_ 3-5 Presence_in_U nspecified_sp ecimen_by_NAA _with_probe_d etection All Choriogonado unknown Negative unknown _2106 unkno wn unknown tropin_pregna -3 ncy_test_Pres ence_in_Urine All Albumin_Pres unknown negative unknown _1753 unkno wn unknown ence_in_Urine -3 All RBC_urine_di unknown negative unknown _1700 unkno wn unknown pstick 005 All Candida_krus unknown NEGATIVE unknown _1535 unkno wn unknown ei_by_Real-Ti 62 me_PCR All chlamydia_DN unknown POSITIVE unknown _1472 unkno wn unknown A_probe 2 All Erythrocytes unknown negative unknown _1394 unkno wn unknown _area_in_Urin 5-1 e_sediment_by _Microscopy_h igh_power_fie ld All glucose_urin unknown negative unknown _123 unkno wn unknown e_semiquantit ative All protein_urin unknown negative unknown _118 unkno wn unknown e_semiquantit ative_dipstic k_ All Urine_HCG_Ex unknown 01.19.22 unknown _1149 unknow n unknown p_Date_CLIA_W 41 aived_ All Urine_HCG_Lo unknown 80205 unknown _1149 unknown unknown t_Number_CLIA 40 _Waived_ All TRICHOMONAS_ unknown NEGATIVE unknown _1130 unkno wn unknown VAGINALIS_DNA 02 _PROBE All Candida_glab unknown NEGATIVE unknown _1087 unkno wn unknown rata_by_Real- 87 time_PCR_-_va ginal_culture All DIPSTICK_URI unknown 5067 unknown _1014 unknown unknown NE_STRIP_LOT_ 00 NUMBER All TRICHOMONAS_ unknown NEGATIVE unknown TVDNA unkno wn unknown VAGINALIS_DNA All T unknown NEGATIVE unknown T.VAG unknown un known INALIS _DNA All CHLAMYDIA_TR unknown POSITIVE unknown CTDNA unkno wn unknown ACHOMATIS_DNA All CANDIDA_KRUS unknown NEGATIVE unknown CKRUS unkno wn unknown EI_DNA EI_DNA All CANDIDA_GLAB unknown NEGATIVE unknown CGLAB unkno wn unknown RATA_DNA RATA_D NA All T unknown NEGATIVE unknown C._KR unknown un known USEI_D NA All T unknown NEGATIVE unknown C._GL unknown un known ABRATA _DNA All T unknown POSITIVE unknown C.TRA unknown un known CH_DNA All Urobilinogen unknown negative unknown _5818 unkno wn unknown _Presence_in_ -0 Urine_by_Test _strip All Specific_gra unknown 1.015 unknown _5811 unknown unknown vity_of_Urine -5 _by_Test_stri p All pH_of_Urine_ unknown 5 unknown _5803 unknown unknown by_Test_strip -2 All Nitrite_Pres unknown negative unknown _5802 unkno wn unknown ence_in_Urine -4 _by_Test_stri p All Leukocyte_es unknown negative unknown _5799 unkno wn unknown terase_Presen -2 ce_in_Urine_b y_Test_strip All Ketones_Mass unknown negative unknown _5797 unkno wn unknown _volume_in_Ur -6 ine_by_Test_s trip All Glucose_Mass unknown negative unknown _5792 unkno wn unknown _volume_in_Ur -7 ine_by_Test_s trip All Color_of_Uri unknown yellow unknown _5778 unknown unknown ne -6 All Bilirubin.to unknown negative unknown _5770 unkno wn unknown tal_Presence_ -3 in_Urine_by_T est_strip All Appearance_o unknown clear unknown _5767 unknown unknown f_Urine -9 All culture_stat unknown Yes unknown _5101 unknown unknown us 5 All urinalysis_r unknown Clean Catch unknown _47 un known unknown outine All appearance_u unknown clear unknown _328 unknown unknown rine All leukocyte_es unknown negative unknown _327 unkno wn unknown terase_urine_ by_dipstick All urobilinogen unknown negative unknown _326 unkno wn unknown _urine_semiqu antitative_di pstick_ All specific_gra unknown 1.015 unknown _325 unknown unknown vity_urine All pH_urine_sem unknown 5 unknown _324 unknown unknown iquantitative All nitrite_urin unknown negative unknown _323 unkno wn unknown e_semiquantit ative All ketones_urin unknown negative unknown _322 unkno wn unknown e_by_test_str ip All bilirubin_ur unknown negative unknown _319 unkno wn unknown ine All urine_color unknown yellow unknown _2751 unknown unknown All human_chorio unknown Negative unknown _2578 unkno wn unknown nic_gonadotro pin_urine_qua litative_urin e_pregnancy_t est_ All Choriogonado unknown Negative unknown _2106 unkno wn unknown tropin_pregna -3 ncy_test_Pres ence_in_Urine All Albumin_Pres unknown negative unknown _1753 unkno wn unknown ence_in_Urine -3 All RBC_urine_di unknown negative unknown _1700 unkno wn unknown pstick 005 All Erythrocytes unknown negative unknown _1394 unkno wn unknown _area_in_Urin 5-1 e_sediment_by _Microscopy_h igh_power_fie ld All glucose_urin unknown negative unknown _123 unkno wn unknown e_semiquantit ative All protein_urin unknown negative unknown _118 unkno wn unknown e_semiquantit ative_dipstic k_ All Urine_HCG_Ex unknown 8.31.22 unknown _1149 unknow n unknown p_Date_CLIA_W 41 aived_ All Urine_HCG_Lo unknown 07646 unknown _1149 unknown unknown t_Number_CLIA 40 _Waived_ All DIPSTICK_URI unknown 5067 unknown _1014 unknown unknown NE_STRIP_LOT_ 00 NUMBER All Candida_glab unknown UNRESOLVED unknown _6956 unk nown unknown rata_DNA_Pres 3-5 ence_in_Vagin al_fluid_by_N AA_with_probe _detection All Urobilinogen unknown 0.2 unknown _5818 unknown unknown _Presence_in_ -0 Urine_by_Test _strip All Specific_gra unknown 1.015 unknown _5811 unknown unknown vity_of_Urine -5 _by_Test_stri p All pH_of_Urine_ unknown 7.5 unknown _5803 unknown unknown by_Test_strip -2 All Nitrite_Pres unknown negative unknown _5802 unkno wn unknown ence_in_Urine -4 _by_Test_stri p All Leukocyte_es unknown negative unknown _5799 unkno wn unknown terase_Presen -2 ce_in_Urine_b y_Test_strip All Ketones_Mass unknown small (15) unknown _5797 unk nown unknown _volume_in_Ur -6 ine_by_Test_s trip All Glucose_Mass unknown negative unknown _5792 unkno wn unknown _volume_in_Ur -7 ine_by_Test_s trip All Color_of_Uri unknown yellow unknown _5778 unknown unknown ne -6 All Bilirubin.to unknown negative unknown _5770 unkno wn unknown tal_Presence_ -3 in_Urine_by_T est_strip All Appearance_o unknown clear unknown _5767 unknown unknown f_Urine -9 All urinalysis_r unknown Clean Catch unknown _47 un known unknown outine All appearance_u unknown clear unknown _328 unknown unknown rine All leukocyte_es unknown negative unknown _327 unkno wn unknown terase_urine_ by_dipstick All urobilinogen unknown 0.2 unknown _326 unknown unknown _urine_semiqu antitative_di pstick_ All specific_gra unknown 1.015 unknown _325 unknown unknown vity_urine All pH_urine_sem unknown 7.5 unknown _324 unknown unknown iquantitative All nitrite_urin unknown negative unknown _323 unkno wn unknown e_semiquantit ative All ketones_urin unknown small (15) unknown _322 unk nown unknown e_by_test_str ip All bilirubin_ur unknown negative unknown _319 unkno wn unknown ine All urine_color unknown yellow unknown _2751 unknown unknown All Albumin_Pres unknown negative unknown _1753 unkno wn unknown ence_in_Urine -3 All RBC_urine_di unknown non-hemolyz unknown _1700 un known unknown pstick ed trace 005 All Candida_krus unknown UNRESOLVED unknown _1535 unk nown unknown ei_by_Real-Ti 62 me_PCR All Erythrocytes unknown non-hemolyz unknown _1394 un known unknown _area_in_Urin ed trace 5-1 e_sediment_by _Microscopy_h igh_power_fie ld All glucose_urin unknown negative unknown _123 unkno wn unknown e_semiquantit ative All protein_urin unknown negative unknown _118 unkno wn unknown e_semiquantit ative_dipstic k_ All Candida_glab unknown UNRESOLVED unknown _1087 unk nown unknown rata_by_Real- 87 time_PCR_-_va ginal_culture All DIPSTICK_URI unknown 6019 unknown _1014 unknown unknown NE_STRIP_LOT_ 00 NUMBER All CANDIDA_KRUS unknown UNRESOLVED unknown CKRUS unk nown unknown EI_DNA EI_DNA All CANDIDA_GLAB unknown UNRESOLVED unknown CGLAB unk nown unknown RATA_DNA RATA_D NA All T unknown UNRESOLVED unknown C._KR unknown unknown USEI_D NA All T unknown UNRESOLVED unknown C._GL unknown unknown ABRATA _DNA All Candida_glab unknown UNRESOLVED unknown _6956 unk nown unknown rata_DNA_Pres 3-5 ence_in_Vagin al_fluid_by_N AA_with_probe _detection All Candida_krus unknown UNRESOLVED unknown _1535 unk nown unknown ei_by_Real-Ti 62 me_PCR All Candida_glab unknown UNRESOLVED unknown _1087 unk nown unknown rata_by_Real- 87 time_PCR_-_va ginal_culture All CANDIDA_KRUS unknown UNRESOLVED unknown CKRUS unk nown unknown EI_DNA EI_DNA All CANDIDA_GLAB unknown UNRESOLVED unknown CGLAB unk nown unknown RATA_DNA RATA_D NA All T unknown UNRESOLVED unknown C._KR unknown unknown USEI_D NA All T unknown UNRESOLVED unknown C._GL unknown unknown ABRATA _DNA All Candida_glab unknown UNRESOLVED unknown _6956 unk nown unknown rata_DNA_Pres 3-5 ence_in_Vagin al_fluid_by_N AA_with_probe _detection All Urobilinogen unknown 0.2 unknown _5818 unknown unknown _Presence_in_ -0 Urine_by_Test _strip All Specific_gra unknown 1.015 unknown _5811 unknown unknown vity_of_Urine -5 _by_Test_stri p All pH_of_Urine_ unknown 7.5 unknown _5803 unknown unknown by_Test_strip -2 All Nitrite_Pres unknown negative unknown _5802 unkno wn unknown ence_in_Urine -4 _by_Test_stri p All Leukocyte_es unknown negative unknown _5799 unkno wn unknown terase_Presen -2 ce_in_Urine_b y_Test_strip All Ketones_Mass unknown small (15) unknown _5797 unk nown unknown _volume_in_Ur -6 ine_by_Test_s trip All Glucose_Mass unknown negative unknown _5792 unkno wn unknown _volume_in_Ur -7 ine_by_Test_s trip All Color_of_Uri unknown yellow unknown _5778 unknown unknown ne -6 All Bilirubin.to unknown negative unknown _5770 unkno wn unknown tal_Presence_ -3 in_Urine_by_T est_strip All Appearance_o unknown clear unknown _5767 unknown unknown f_Urine -9 All urinalysis_r unknown Clean Catch unknown _47 un known unknown outine All appearance_u unknown clear unknown _328 unknown unknown rine All leukocyte_es unknown negative unknown _327 unkno wn unknown terase_urine_ by_dipstick All urobilinogen unknown 0.2 unknown _326 unknown unknown _urine_semiqu antitative_di pstick_ All specific_gra unknown 1.015 unknown _325 unknown unknown vity_urine All pH_urine_sem unknown 7.5 unknown _324 unknown unknown iquantitative All nitrite_urin unknown negative unknown _323 unkno wn unknown e_semiquantit ative All ketones_urin unknown small (15) unknown _322 unk nown unknown e_by_test_str ip All bilirubin_ur unknown negative unknown _319 unkno wn unknown ine All urine_color unknown yellow unknown _2751 unknown unknown All Albumin_Pres unknown negative unknown _1753 unkno wn unknown ence_in_Urine -3 All RBC_urine_di unknown non-hemolyz unknown _1700 un known unknown pstick ed trace 005 All Candida_krus unknown UNRESOLVED unknown _1535 unk nown unknown ei_by_Real-Ti 62 me_PCR All Erythrocytes unknown non-hemolyz unknown _1394 un known unknown _area_in_Urin ed trace 5-1 e_sediment_by _Microscopy_h igh_power_fie ld All glucose_urin unknown negative unknown _123 unkno wn unknown e_semiquantit ative All protein_urin unknown negative unknown _118 unkno wn unknown e_semiquantit ative_dipstic k_ All Candida_glab unknown UNRESOLVED unknown _1087 unk nown unknown rata_by_Real- 87 time_PCR_-_va ginal_culture All DIPSTICK_URI unknown 6019 unknown _1014 unknown unknown NE_STRIP_LOT_ 00 NUMBER All CANDIDA_KRUS unknown UNRESOLVED unknown CKRUS unk nown unknown EI_DNA EI_DNA All CANDIDA_GLAB unknown UNRESOLVED unknown CGLAB unk nown unknown RATA_DNA RATA_D NA All T unknown UNRESOLVED unknown C._KR unknown unknown USEI_D NA All T unknown UNRESOLVED unknown C._GL unknown unknown ABRATA _DNA Vital Signs date measurement value source 20200702 weight_standard 191.2 lb [id number] weight_metric 86.73 kg 20200702 temperature_standard 97.7 F 20200702 temperature_metric 36.5 C 20200702 respiration_rate 18 /min 20200702 height_standard 68 in 20200702 height_metric 172.72 cm 20200702 heart_rate 90 /min 20200702 BP_systolic 146 mm[Hg] 20200702 BP_diastolic 80 mm[Hg] 20200702 BMI 29.18 kg/m2 20200702 weight_standard 191.2 lb [id number] weight_metric 86.73 kg 20200702 temperature_standard 97.7 F 20200702 temperature_metric 36.5 C 20200702 respiration_rate 18 /min 20200702 height_standard 68 in 20200702 height_metric 172.72 cm 20200702 heart_rate 90 /min 20200702 BP_systolic 146 mm[Hg] 20200702 BP_diastolic 80 mm[Hg] 20200702 BMI 29.18 kg/m2 20200820 weight_standard 191.2 lb 20200820 weight_metric 86.73 kg 20200820 temperature_standard 98.3 F 20200820 temperature_metric 36.83 C 20200820 respiration_rate 12 /min 20200820 height_standard 68 in 20200820 height_metric 172.72 cm 20200820 heart_rate 78 /min 20200820 BP_systolic 107 mm[Hg] [id number] BP_diastolic 67 mm[Hg] 20200820 BMI 29.18 kg/m2 20200820 weight_standard 191.2 lb [id number] weight_metric 86.73 kg 20200820 temperature_standard 98.3 F 20200820 temperature_metric 36.83 C 20200820 respiration_rate 12 /min 20200820 height_standard 68 in 20200820 height_metric 172.72 cm 20200820 heart_rate 78 /min 20200820 BP_systolic 107 mm[Hg] 20200820 BP_diastolic 67 mm[Hg] 20200820 BMI 29.18 kg/m2 20200820 weight_standard 191.2 lb 20200820 weight_metric 86.73 kg 20200820 temperature_standard 98.3 F 20200820 temperature_metric 36.83 C 20200820 respiration_rate 12 /min 20200820 height_standard 68 in 20200820 height_metric 172.72 cm 20200820 heart_rate 78 /min 20200820 BP_systolic 107 mm[Hg] 20200820 BP_diastolic 67 mm[Hg] 20200820 BMI 29.18 kg/m2 20200820 weight_standard 191.2 lb 20200820 weight_metric 86.73 kg 20200820 temperature_standard 98.3 F 20200820 temperature_metric 36.83 C 20200820 respiration_rate 12 /min 20200820 height_standard 68 in 20200820 height_metric 172.72 cm 20200820 heart_rate 78 /min 20200820 BP_systolic 107 mm[Hg] 20200820 BP_diastolic 67 mm[Hg] 20200820 BMI 29.18 kg/m2
--- OUTSIDE RECORDS SUMMARY | 2020-09-25 20:16 | EXTERNAL MEDICAL SUMMARY RPT | Continuity of Care Document ---
:1999 Demographics Phone Unavailable Preferred Language Unknown Marital Status Unknown Sikhism Affiliation Unknown Race Unknown Ethnic Group Unknown Author Organization [place] Address [address] [id number] Phone Care Team Providers Name Role Phone Registrar Unavailable Unavailable PA-C Unavailable Unavailable Sandy Unavailable Unavailable MD Unavailable Unavailable GROCERY STOCKER Unavailable Unavailable Medications date description facility [id number] [facility] All [id number] DOXYCYCLINE HYCL[facility] All [id number] DOXYCYCLINE HYCLATE All [id number] [facility] All [id number] [facility] All [id number] DOXYCYCLINE HYCLATE All [id number] DOXYCYCLINE HYCLATE All [id number] [facility] All [id number] [facility] All [id number] DOXYCYCLINE HYCLATE All [id number] DOXYCYCLINE HYCLATE All [id number] [facility] All Problems date description facility 20200820 Leukorrhea, not specified as infective All 55070226 Alcohol use All 62884472 Vaginitis 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-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 III All 69021889 Vaginal discharge All 03797623 Urine C&S All 41472581 Other specified noninflammatory disorde rs of vagina All 38925756 Details of drug misuse behavior All 93727066 Current every day smoker All [id number] CHLAM, NEISSERIA, TRICH DNA All 38308812 Details of drug misuse behavior All 14946446 Alcohol intake All 88692891 Urine C&S All 80209508 Alcohol use All 16817460 Vaginitis Pathogens-Affirm 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 III All 66049230 Current every day smoker All [id number] CHLAM, NEISSERIA, TRICH DNA All Procedures date description facility 02265316 POC URINALYSIS DIP All 84460286 POC URINALYSIS DIP All 32390984 POC URINALYSIS DIP All 27567325 POC URINALYSIS DIP All 97639045 URINE DIP All 76458394 URINE DIP All 27675930 URINE DIP All 81020407 URINE DIP All 16453605 URINE DIP All Results test status date ordered by attending specimen mai e Candida_glabrata_DNA_P unknown [id number] unknown unknown unknown resence_in_Vaginal_flui d_by_NAA_with_probe_det ection Urobilinogen_Presence_ unknown 84461023 unknown unknown unknown in_Urine_by_Test_strip Specific_gravity_of_Ur unknown 16262492 unknown unknown unknown ine_by_Test_strip pH_of_Urine_by_Test_st unknown 00378330 unknown unknown unknown rip Nitrite_Presence_in_Ur unknown 28137212 unknown unknown unknown ine_by_Test_strip Leukocyte_esterase_Pre unknown 92489596 unknown unknown unknown sence_in_Urine_by_Test_ strip Ketones_Mass_volume_in unknown 26092899 unknown unknown unknown _Urine_by_Test_strip Glucose_Mass_volume_in unknown 99116807 unknown unknown unknown _Urine_by_Test_strip Color_of_Urine unknown 32149876 unknown unknown unknown Bilirubin.total_Presen unknown 05890212 unknown unknown unknown ce_in_Urine_by_Test_str ip Appearance_of_Urine unknown 46031391 unknown unknown unk nown culture_status unknown 54143537 unknown unknown unknown urinalysis_routine unknown 77708275 unknown unknown unkn own appearance_urine unknown 42533305 unknown unknown unknow n leukocyte_esterase_uri unknown 66105507 unknown unknown unknown ne_by_dipstick urobilinogen_urine_sem unknown 43378660 unknown unknown unknown iquantitative_dipstick_ specific_gravity_urine unknown 11329108 unknown unknown unknown pH_urine_semiquantitat unknown 94288671 unknown unknown unknown jason nitrite_urine_semiquan unknown 77915060 unknown unknown unknown titative ketones_urine_by_test_ unknown 88866274 unknown unknown unknown strip bilirubin_urine unknown 14046215 unknown unknown unknown urine_color unknown 73350840 unknown unknown unknown human_chorionic_gonado unknown 25067212 unknown unknown unknown tropin_urine_qualitativ e_urine_pregnancy_test_ Chlamydia_trachomatis_D unknown 38310821 unknown unknown unknown NA_Presence_in_Unspecif ied_specimen_by_NAA_wit h_probe_detection Choriogonadotropin_pre unknown 80534985 unknown unknown unknown gnancy_test_Presence_in _Urine Albumin_Presence_in_Ur unknown 87223400 unknown unknown unknown ine RBC_urine_dipstick unknown 51426347 unknown unknown unkn own Candida_krusei_by_Real unknown 74268507 unknown unknown unknown -Time_PCR chlamydia_DNA_probe unknown 19639581 unknown unknown unk nown Erythrocytes_area_in_U unknown 45246671 unknown unknown unknown rine_sediment_by_Micros copy_high_power_field glucose_urine_semiquan unknown 15715440 unknown unknown unknown titative protein_urine_semiquan unknown 21413638 unknown unknown unknown titative_dipstick_ Urine_HCG_Exp_Date_CLI unknown 00300312 unknown unknown unknown A_Waived_ Urine_HCG_Lot_Number_C unknown 31143853 unknown unknown unknown LIA_Waived_ TRICHOMONAS_VAGINALIS_ unknown 71961784 unknown unknown unknown DNA_PROBE Candida_glabrata_by_Re unknown 63841913 unknown unknown unknown tx-ntqk_HPV_-_iqpmske_p ulture DIPSTICK_URINE_STRIP_L unknown 62976949 unknown unknown unknown OT_NUMBER TRICHOMONAS_VAGINALIS_ unknown 03140558 unknown unknown unknown DNA T unknown 71008093 unknown unknown unknown CHLAMYDIA_TRACHOMATIS_ unknown 72957840 unknown unknown unknown DNA CANDIDA_KRUSEI_DNA unknown 02871689 unknown unknown unkn own CANDIDA_GLABRATA_DNA unknown 41953373 unknown unknown un known T unknown 09596417 unknown unknown unknown T unknown 32921613 unknown unknown unknown T unknown 38668618 unknown unknown unknown Candida_glabrata_DNA_P unknown 57940142 unknown unknown unknown resence_in_Vaginal_flui d_by_NAA_with_probe_det ection Urobilinogen_Presence_ unknown 87441340 unknown unknown unknown in_Urine_by_Test_strip Specific_gravity_of_Ur unknown 18280385 unknown unknown unknown ine_by_Test_strip pH_of_Urine_by_Test_st unknown 37433303 unknown unknown unknown rip Nitrite_Presence_in_Ur unknown 67739806 unknown unknown unknown ine_by_Test_strip Leukocyte_esterase_Pre unknown 42222375 unknown unknown unknown sence_in_Urine_by_Test_ strip Ketones_Mass_volume_in unknown 41584477 unknown unknown unknown _Urine_by_Test_strip Glucose_Mass_volume_in unknown 21786478 unknown unknown unknown _Urine_by_Test_strip Color_of_Urine unknown 97739161 unknown unknown unknown Bilirubin.total_Presen unknown 86439111 unknown unknown unknown ce_in_Urine_by_Test_str ip Appearance_of_Urine unknown 02256325 unknown unknown unk nown culture_status unknown 94136258 unknown unknown unknown urinalysis_routine unknown 77733122 unknown unknown unkn own appearance_urine unknown 80486082 unknown unknown unknow n leukocyte_esterase_uri unknown 07648212 unknown unknown unknown ne_by_dipstick urobilinogen_urine_sem unknown 71962770 unknown unknown unknown iquantitative_dipstick_ specific_gravity_urine unknown 72017700 unknown unknown unknown pH_urine_semiquantitat unknown 28176454 unknown unknown unknown jason nitrite_urine_semiquan unknown 22203431 unknown unknown unknown titative ketones_urine_by_test_ unknown 38952706 unknown unknown unknown strip bilirubin_urine unknown 42205084 unknown unknown unknown urine_color unknown 15166435 unknown unknown unknown human_chorionic_gonado unknown 78299998 unknown unknown unknown tropin_urine_qualitativ e_urine_pregnancy_test_ Chlamydia_trachomatis_D unknown 64173141 unknown unknown unknown NA_Presence_in_Unspecif ied_specimen_by_NAA_wit h_probe_detection Choriogonadotropin_pre unknown 71650872 unknown unknown unknown gnancy_test_Presence_in _Urine Albumin_Presence_in_Ur unknown 02952556 unknown unknown unknown ine RBC_urine_dipstick unknown 89633179 unknown unknown unkn own Candida_krusei_by_Real unknown 89059286 unknown unknown unknown -Time_PCR chlamydia_DNA_probe unknown 70419163 unknown unknown unk nown Erythrocytes_area_in_U unknown 15305700 unknown unknown unknown rine_sediment_by_Micros copy_high_power_field glucose_urine_semiquan unknown 91266577 unknown unknown unknown titative protein_urine_semiquan unknown 54666997 unknown unknown unknown titative_dipstick_ Urine_HCG_Exp_Date_CLI unknown 21634792 unknown unknown unknown A_Waived_ Urine_HCG_Lot_Number_C unknown 54653924 unknown unknown unknown LIA_Waived_ TRICHOMONAS_VAGINALIS_ unknown 90861817 unknown unknown unknown DNA_PROBE Candida_glabrata_by_Re unknown 12401483 unknown unknown unknown za-yxuq_ZPW_-_ucvmtgo_u ulture DIPSTICK_URINE_STRIP_L unknown 48657548 unknown unknown unknown OT_NUMBER TRICHOMONAS_VAGINALIS_ unknown 21759633 unknown unknown unknown DNA T unknown 49693357 unknown unknown unknown CHLAMYDIA_TRACHOMATIS_ unknown 03640353 unknown unknown unknown DNA CANDIDA_KRUSEI_DNA unknown 64800902 unknown unknown unkn own CANDIDA_GLABRATA_DNA unknown 28323238 unknown unknown un known T unknown 38247198 unknown unknown unknown T unknown 94962912 unknown unknown unknown T unknown 85179572 unknown unknown unknown Candida_glabrata_DNA_P unknown 54081972 unknown unknown unknown resence_in_Vaginal_flui d_by_NAA_with_probe_det ection Urobilinogen_Presence_ unknown 70431149 unknown unknown unknown in_Urine_by_Test_strip Specific_gravity_of_Ur unknown 37549970 unknown unknown unknown ine_by_Test_strip pH_of_Urine_by_Test_st unknown 60089770 unknown unknown unknown rip Nitrite_Presence_in_Ur unknown 99833108 unknown unknown unknown ine_by_Test_strip Leukocyte_esterase_Pre unknown 50278022 unknown unknown unknown sence_in_Urine_by_Test_ strip Ketones_Mass_volume_in unknown 12436559 unknown unknown unknown _Urine_by_Test_strip Glucose_Mass_volume_in unknown 96387806 unknown unknown unknown _Urine_by_Test_strip Color_of_Urine unknown 95021156 unknown unknown unknown Bilirubin.total_Presen unknown 63561893 unknown unknown unknown ce_in_Urine_by_Test_str ip Appearance_of_Urine unknown 87212472 unknown unknown unk nown culture_status unknown 15397778 unknown unknown unknown urinalysis_routine unknown 25440009 unknown unknown unkn own appearance_urine unknown 09834891 unknown unknown unknow n leukocyte_esterase_uri unknown 89873737 unknown unknown unknown ne_by_dipstick urobilinogen_urine_sem unknown 81103457 unknown unknown unknown iquantitative_dipstick_ specific_gravity_urine unknown 36482715 unknown unknown unknown pH_urine_semiquantitat unknown 93867766 unknown unknown unknown jason nitrite_urine_semiquan unknown 51046667 unknown unknown unknown titative ketones_urine_by_test_ unknown 08186381 unknown unknown unknown strip bilirubin_urine unknown 04206920 unknown unknown unknown urine_color unknown 54728214 unknown unknown unknown human_chorionic_gonado unknown 08679144 unknown unknown unknown tropin_urine_qualitativ e_urine_pregnancy_test_ Chlamydia_trachomatis_D unknown 37923492 unknown unknown unknown NA_Presence_in_Unspecif ied_specimen_by_NAA_wit h_probe_detection Choriogonadotropin_pre unknown 30894481 unknown unknown unknown gnancy_test_Presence_in _Urine Albumin_Presence_in_Ur unknown 80370115 unknown unknown unknown ine RBC_urine_dipstick unknown 74990492 unknown unknown unkn own Candida_krusei_by_Real unknown 58186027 unknown unknown unknown -Time_PCR chlamydia_DNA_probe unknown 47684214 unknown unknown unk nown Erythrocytes_area_in_U unknown 50892105 unknown unknown unknown rine_sediment_by_Micros copy_high_power_field glucose_urine_semiquan unknown 35650438 unknown unknown unknown titative protein_urine_semiquan unknown 44871261 unknown unknown unknown titative_dipstick_ Urine_HCG_Exp_Date_CLI unknown 43956529 unknown unknown unknown A_Waived_ Urine_HCG_Lot_Number_C unknown 66106100 unknown unknown unknown LIA_Waived_ TRICHOMONAS_VAGINALIS_ unknown 64789923 unknown unknown unknown DNA_PROBE Candida_glabrata_by_Re unknown 89463591 unknown unknown unknown oa-omct_CWK_-_fnbkyyq_v ulture DIPSTICK_URINE_STRIP_L unknown 85546133 unknown unknown unknown OT_NUMBER TRICHOMONAS_VAGINALIS_ unknown 25866819 unknown unknown unknown DNA T unknown 05502529 unknown unknown unknown CHLAMYDIA_TRACHOMATIS_ unknown 29378605 unknown unknown unknown DNA CANDIDA_KRUSEI_DNA unknown 43626723 unknown unknown unkn own CANDIDA_GLABRATA_DNA unknown 17956637 unknown unknown un known T unknown 65004733 unknown unknown unknown T unknown 10181332 unknown unknown unknown T unknown 49712037 unknown unknown unknown Urobilinogen_Presence_ unknown 89329360 unknown unknown unknown in_Urine_by_Test_strip Specific_gravity_of_Ur unknown 70097189 unknown unknown unknown ine_by_Test_strip pH_of_Urine_by_Test_st unknown 14285066 unknown unknown unknown rip Nitrite_Presence_in_Ur unknown 02721593 unknown unknown unknown ine_by_Test_strip Leukocyte_esterase_Pre unknown 39999690 unknown unknown unknown sence_in_Urine_by_Test_ strip Ketones_Mass_volume_in unknown 40599018 unknown unknown unknown _Urine_by_Test_strip Glucose_Mass_volume_in unknown 45600031 unknown unknown unknown _Urine_by_Test_strip Color_of_Urine unknown 55255516 unknown unknown unknown Bilirubin.total_Presen unknown 45262163 unknown unknown unknown ce_in_Urine_by_Test_str ip Appearance_of_Urine unknown 46193233 unknown unknown unk nown culture_status unknown 04213611 unknown unknown unknown urinalysis_routine unknown 64846769 unknown unknown unkn own appearance_urine unknown 18408091 unknown unknown unknow n leukocyte_esterase_uri unknown 68696750 unknown unknown unknown ne_by_dipstick urobilinogen_urine_sem unknown 37889384 unknown unknown unknown iquantitative_dipstick_ specific_gravity_urine unknown 35441296 unknown unknown unknown pH_urine_semiquantitat unknown 81086057 unknown unknown unknown jason nitrite_urine_semiquan unknown 60532278 unknown unknown unknown titative ketones_urine_by_test_ unknown 23754421 unknown unknown unknown strip bilirubin_urine unknown 00598966 unknown unknown unknown urine_color unknown 10324956 unknown unknown unknown human_chorionic_gonado unknown 53580542 unknown unknown unknown tropin_urine_qualitativ e_urine_pregnancy_test_ Choriogonadotropin_pre unknown 74339394 unknown unknown unknown gnancy_test_Presence_in _Urine Albumin_Presence_in_Ur unknown 91287957 unknown unknown unknown ine RBC_urine_dipstick unknown 43167167 unknown unknown unkn own Erythrocytes_area_in_U unknown 85179831 unknown unknown unknown rine_sediment_by_Micros copy_high_power_field glucose_urine_semiquan unknown 13572092 unknown unknown unknown titative protein_urine_semiquan unknown 61123089 unknown unknown unknown titative_dipstick_ Urine_HCG_Exp_Date_CLI unknown 42312139 unknown unknown unknown A_Waived_ Urine_HCG_Lot_Number_C unknown 07619201 unknown unknown unknown LIA_Waived_ DIPSTICK_URINE_STRIP_L unknown 43040329 unknown unknown unknown OT_NUMBER Candida_glabrata_DNA_P unknown 15969304 unknown unknown unknown resence_in_Vaginal_flui d_by_NAA_with_probe_det ection Urobilinogen_Presence_ unknown 67541272 unknown unknown unknown in_Urine_by_Test_strip Specific_gravity_of_Ur unknown 66107206 unknown unknown unknown ine_by_Test_strip pH_of_Urine_by_Test_st unknown 91398353 unknown unknown unknown rip Nitrite_Presence_in_Ur unknown 71540480 unknown unknown unknown ine_by_Test_strip Leukocyte_esterase_Pre unknown 40795718 unknown unknown unknown sence_in_Urine_by_Test_ strip Ketones_Mass_volume_in unknown 44983839 unknown unknown unknown _Urine_by_Test_strip Glucose_Mass_volume_in unknown 97308973 unknown unknown unknown _Urine_by_Test_strip Color_of_Urine unknown 19175690 unknown unknown unknown Bilirubin.total_Presen unknown 50891058 unknown unknown unknown ce_in_Urine_by_Test_str ip Appearance_of_Urine unknown 59547659 unknown unknown unk nown urinalysis_routine unknown 67440411 unknown unknown unkn own appearance_urine unknown 40486239 unknown unknown unknow n leukocyte_esterase_uri unknown 60651967 unknown unknown unknown ne_by_dipstick urobilinogen_urine_sem unknown 36484233 unknown unknown unknown iquantitative_dipstick_ specific_gravity_urine unknown 92945597 unknown unknown unknown pH_urine_semiquantitat unknown 49922107 unknown unknown unknown jason nitrite_urine_semiquan unknown 74706479 unknown unknown unknown titative ketones_urine_by_test_ unknown 18092705 unknown unknown unknown strip bilirubin_urine unknown 97107576 unknown unknown unknown urine_color unknown 75761218 unknown unknown unknown Albumin_Presence_in_Ur unknown 94223686 unknown unknown unknown ine RBC_urine_dipstick unknown 51089327 unknown unknown unkn own Candida_krusei_by_Real unknown 32855680 unknown unknown unknown -Time_PCR Erythrocytes_area_in_U unknown 73368735 unknown unknown unknown rine_sediment_by_Micros copy_high_power_field glucose_urine_semiquan unknown 50871795 unknown unknown unknown titative protein_urine_semiquan unknown 25345069 unknown unknown unknown titative_dipstick_ Candida_glabrata_by_Re unknown 98494364 unknown unknown unknown af-jwpk_FEW_-_vverknx_g ulture DIPSTICK_URINE_STRIP_L unknown 54930767 unknown unknown unknown OT_NUMBER CANDIDA_KRUSEI_DNA unknown 87583200 unknown unknown unkn own CANDIDA_GLABRATA_DNA unknown 05645217 unknown unknown un known T unknown 45993801 unknown unknown unknown T unknown 78020822 unknown unknown unknown Candida_glabrata_DNA_P unknown 76763528 unknown unknown unknown resence_in_Vaginal_flui d_by_NAA_with_probe_det ection Candida_krusei_by_Real unknown 92049573 unknown unknown unknown -Time_PCR Candida_glabrata_by_Re unknown 91568258 unknown unknown unknown vm-sxzv_PIP_-_hjoamov_v ulture CANDIDA_KRUSEI_DNA unknown 35456010 unknown unknown unkn own CANDIDA_GLABRATA_DNA unknown 14459198 unknown unknown un known T unknown 95538246 unknown unknown unknown T unknown 48297548 unknown unknown unknown Candida_glabrata_DNA_P unknown 36443678 unknown unknown unknown resence_in_Vaginal_flui d_by_NAA_with_probe_det ection Urobilinogen_Presence_ unknown 74158999 unknown unknown unknown in_Urine_by_Test_strip Specific_gravity_of_Ur unknown 78102294 unknown unknown unknown ine_by_Test_strip pH_of_Urine_by_Test_st unknown 54380933 unknown unknown unknown rip Nitrite_Presence_in_Ur unknown 48788166 unknown unknown unknown ine_by_Test_strip Leukocyte_esterase_Pre unknown 22132795 unknown unknown unknown sence_in_Urine_by_Test_ strip Ketones_Mass_volume_in unknown 68776896 unknown unknown unknown _Urine_by_Test_strip Glucose_Mass_volume_in unknown 68996286 unknown unknown unknown _Urine_by_Test_strip Color_of_Urine unknown 16880426 unknown unknown unknown Bilirubin.total_Presen unknown 78292557 unknown unknown unknown ce_in_Urine_by_Test_str ip Appearance_of_Urine unknown 56777493 unknown unknown unk nown urinalysis_routine unknown 30033286 unknown unknown unkn own appearance_urine unknown 16710021 unknown unknown unknow n leukocyte_esterase_uri unknown 85844960 unknown unknown unknown ne_by_dipstick urobilinogen_urine_sem unknown 60199430 unknown unknown unknown iquantitative_dipstick_ specific_gravity_urine unknown 00698161 unknown unknown unknown pH_urine_semiquantitat unknown 70230303 unknown unknown unknown jason nitrite_urine_semiquan unknown 25731149 unknown unknown unknown titative ketones_urine_by_test_ unknown 41952378 unknown unknown unknown strip bilirubin_urine unknown 64246931 unknown unknown unknown urine_color unknown 64292190 unknown unknown unknown Albumin_Presence_in_Ur unknown 89301257 unknown unknown unknown ine RBC_urine_dipstick unknown 42149675 unknown unknown unkn own Candida_krusei_by_Real unknown 13061567 unknown unknown unknown -Time_PCR Erythrocytes_area_in_U unknown 55953244 unknown unknown unknown rine_sediment_by_Micros copy_high_power_field glucose_urine_semiquan unknown 63136138 unknown unknown unknown titative protein_urine_semiquan unknown 02923750 unknown unknown unknown titative_dipstick_ Candida_glabrata_by_Re unknown 45013130 unknown unknown unknown xs-uuto_KKB_-_jxbqvfe_y ulture DIPSTICK_URINE_STRIP_L unknown 12288697 unknown unknown unknown OT_NUMBER CANDIDA_KRUSEI_DNA unknown 26365726 unknown unknown unkn own CANDIDA_GLABRATA_DNA unknown 70183015 unknown unknown un known T unknown 17083709 unknown unknown unknown T unknown 34568383 unknown unknown unknown facility observation status value [...] unknown p_Date_CLIA_W 41 aived_ All Urine_HCG_Lo unknown 88534 unknown _1149 unknown unknown t_Number_CLIA 40 _Waived_ [...] unknown p_Date_CLIA_W 41 aived_ All Urine_HCG_Lo unknown 53708 unknown _1149 unknown unknown t_Number_CLIA 40 _Waived_ [...] unknown p_Date_CLIA_W 41 aived_ All Urine_HCG_Lo unknown 59981 unknown _1149 unknown unknown t_Number_CLIA 40 _Waived_ [...] unknown p_Date_CLIA_W 41 aived_ All Urine_HCG_Lo unknown 00805 unknown _1149 unknown unknown t_Number_CLIA 40 _Waived_ [...] measurement value source 20200702 weight_standard 191.2 lb 10439756 weight_metric 86.73 kg 20200702 temperature_standard 97.7 F 20200702 temperature_metric 36.5 C 20200702 respiration_rate 18 /min 20200702 height_standard 68 in 20200702 height_metric 172.72 cm 20200702 heart_rate 90 /min 20200702 BP_systolic 146 mm[Hg] 20200702 BP_diastolic 80 mm[Hg] 20200702 BMI 29.18 kg/m2 20200702 weight_standard 191.2 lb 53924745 weight_metric 86.73 kg 20200702 temperature_standard 97.7 F [...] heart_rate 78 /min 20200820 BP_systolic 107 mm[Hg] 37790560 BP_diastolic 67 mm[Hg] 20200820 BMI 29.18 kg/m2 20200820 weight_standard 191.2 lb 89948583 weight_metric 86.73 kg 20200820 temperature_standard 98.3 F [...]
[2020-09-25] MEDS ORDERED: PROCHLORPERAZINE 10 MG/2 ML VIAL IVP STA (21:16)
[2020-09-25] MEDS ORDERED: SODIUM CHLORIDE 0.9% 1,000 ML IV STA (21:16)
[2020-09-25 21:26] LABS: BILIRUBIN,URINE NEGATIVE (NEGATIVE); GLUCOSE, URINE (UA) NEGATIVE (NEGATIVE); KETONES,URINE (UA) NEGATIVE (NEGATIVE); LEUKOCYTE ESTERASE, URINE NEGATIVE (NEGATIVE); NITRITE,URINE NEGATIVE (NEGATIVE); OCCULT BLOOD,URINE NEGATIVE (NEGATIVE); PROTEIN,URINE NEGATIVE (NEGATIVE); UROBILINOGEN,URINE 0.2 (NORMAL) E.U./dL (NORMAL)
[2020-09-25 21:31] LABS: CLARITY,URINE CLEAR (CLEAR); HCG UR QUAL NEGATIVE
[2020-09-25] MEDS ORDERED: KETOROLAC 30 MG/ML VIAL IVP STA (21:31)
--- NOTE | 2020-09-25 21:34 | ED Physician Documentation ---
History of Present Illness - Stated complaint Stated Complaint: CRABTREE/NAUSEA - Chief complaint Chief Complaint: Neuro - Additonal information Additional information: 20-year-old female presents emergency department for evaluation of 3 days heada nahum. Described as throbbing frontal and sometimes occipital in region. No nausea or vomiting. She states that typically when she gets a headache she will take a hot bath or massage but that has not helped. She has not taken any oral medications because she does not like to take medications. No falls or trauma. No fevers or neck pain. Patient denies volume loss through vomiting diarrhea. No dysuria urgency or frequency. She does endorse some mild light and noise sensitivity. She does not have a formal diagnosis of migraine in her past. Denies possibility of recently started her menstrual cycle. She would like a COVID-19 test. Review of Systems Constitutional: denies: Fever, Chills Eyes: reports: Reviewed and negative Ears: reports: Reviewed and negative Nose: reports: Reviewed and negative Throat: reports: Reviewed and negative Cardiac: reports: Reviewed and negative. denies: Chest pain / pressure, Palpitations Respiratory: denies: Dyspnea, Cough GI: denies: Abdominal Pain, Nausea, Vomiting : denies: Dysuria, Frequency, Hesitancy Skin: denies: Rash, Lesions Musculoskeletal: denies: Neck pain, Back pain Neurologic: reports: Headache. denies: Focal weakness, Numbness, Difficulty speaking, Near syncope, Syncope, Seizure, Confused, Altered mental status, Head injury, LOC PD PAST MEDICAL HISTORY - Past Medical History Past Medical History: No Cardiovascular: None Respiratory: None Neuro: None Endocrine/Autoimmune: None - Past Surgical History Past Surgical History: Yes Ortho: ACL reconstruction HEENT: Tonsil/Adenoidectomy - Present Medications Home Medications: Ambulatory Orders Medication Instructions Recorded Confirmed Ibuprofen [Motrin] 600 mg PO Q6H PRN #30 tab 09/25/20 - Allergies Allergies/Adverse Reactions: Allergies Allergy/AdvReac Type Severity Reaction Status Date / Time No Known Drug Allergies Allergy Verified 09/25/20 20:20 - Social History Does the pt smoke?: No Smoking Status: Never smoker Does the pt drink ETOH?: Yes Does the pt have substance abuse?: No - Immunizations Immunizations are current?: Yes - POLST Patient has POLST: No PD ED PE EXPANDED - General General: Alert, No acute distress, Well developed/nourished - HEENT HEENT: Atraumatic, PERRL, EOMI, Moist mucous membranes, Pharynx normal - Cardiac Cardiac: Regular Rate, Radial strong equal, Pedal strong equal, Cap refill < 2 sec - Respiratory Respiratory: Clear to ausultation neel. No: Distress, Labored - Abdomen Abdomen: Normal Bowel sounds. No: Tender to palpation - Extremities Extremities: Normal. No: Deformity, Tenderness, Limited ROM - Neuro Neuro: Alert and Oriented X 3, CNII-XII intact, Cerebellar nl, Normal gait, Normal finger nose, Normal speech - GCS Eye Opening: Spontaneous Motor: Obeys Commands Verbal: Oriented Total: 15 Results - Vitals Vitals: Vital Signs - 24 hr 09/25/20 20:18 Temperature 37.0 C Heart Rate 84 Respiratory 16 Rate Blood Pressure 130/70 O2 Saturation 100 Oxygen O2 Source Room air - Labs Labs: Laboratory Tests 09/25/20 20:25 Urine Color LT. YELLOW Urine Clarity CLEAR Urine pH 6.0 Ur Specific [place] 1.010 Urine Protein NEGATIVE Urine Glucose (UA) NEGATIVE Urine Ketones NEGATIVE Urine Occult Blood NEGATIVE Urine Nitrite NEGATIVE Urine Bilirubin NEGATIVE Urine Urobilinogen 0.2 (NORMAL) Ur Leukocyte Esterase NEGATIVE Ur Microscopic Review NOT INDICATED Urine Culture Comments NOT INDICATED Urine HCG, Qual NEGATIVE PD MEDICAL DECISION MAKING - ED course Complexity details: reviewed results, re-evaluated patient, d/w patient ED course: 20-year-old female presents emergency department for evaluation of 3 days of frontal and occipital headache with associated light noise sensitivity. She did endorse some nausea but no vomiting. She had not taking any oral medications at home prior to arrival in the emergency department. Screening UA shows no signs of infection and she lacks urinary symptoms. She has no fevers nuchal rigidity ED or sudden onset of the headache. Low suspicion for meningitis or subarachnoid hemorrhage. Given lack of trauma will defer CT imaging. Neuro and cerebellar exam unremarkable. She was given 1 L of IV fluids of which she only completed approximately 500 mL. She was also given Compazine and Toradol here in the emergency department with marked improvement in headache. This time she desires to be discharged home. I have encouraged her to take ibuprofen or Tylenol at home for headache discomfort emergent return precautions were discussed. Departure - Departure Disposition: 01 Home, Self Care Clinical Impression: Encounter for screening for COVID-19 Headache Qualifiers: Headache type: unspecified Headache chronicity pattern: acute headache Intractability: not intractable Qualified Code(s): R51.9 - Headache, unspecified Condition: Stable Record reviewed to determine appropriate education?: Yes Prescriptions: Ibuprofen [Motrin] 600 mg PO Q6H PRN #30 tab PRN Reason: Pain Comments: Saw she was seen here in the emergency department for a headache. We did give you medication called Toradol which is like ibuprofen and the injectable form as well as Compazine which is a nausea medication. Your headache is starting to improve. I do recommend that you take ibuprofen as prescribed or Tylenol at home for discomfort. Return to the emergency department if your headache worsens, you have fevers, stiff neck or uncontrolled vomiting. Please schedule a follow up appointmetn with [facility] primary doctor to discuss this ED visit as soon as possible
[2020-09-25 22:31] VITALS: BP 93/52
== END 2020-09-25 22:35 | disposition home or self-care (01) ==
LOC: ED 20:02
DX: R51.9 Headache, unspecified (principal); Z20.822 Contact with and (suspected) exposure to COVID-19
CPT/HCPCS: 81001; 81003; 81025; 87086; 96374; 96375; 99284

== ENCOUNTER 2020-12-08 15:07 | Outpatient (CLI) | payer BC, OTHER ==
[2020-12-08 21:52] LABS: BACTERIAL VAGINOSIS DNA NEGATIVE (NEGATIVE); CANDIDA GLABRATA DNA NEGATIVE (NEGATIVE); CANDIDA GROUP DNA NEGATIVE (NEGATIVE); CANDIDA KRUSEI DNA NEGATIVE (NEGATIVE); TRICHOMONAS VAGINALIS DNA NEGATIVE (NEGATIVE)
[2020-12-08 23:23] LABS: CHLAMYDIA TRACHOMATIS DNA NEGATIVE (NEGATIVE); TRICHOMONAS VAGINALIS DNA NEGATIVE (NEGATIVE)
[2020-12-08 23:27] LABS: NEISSERIA GONORRHOEAE DNA POSITIVE (NEGATIVE)
== END 2020-12-08 23:59 | disposition home or self-care (01) ==
LOC: LAB.N 15:07
PROVIDERS: ATTEND Physician Assistant Medical
DX: Z11.3 Encounter for screening for infections with a predominantly sexual mode of transmission (principal)
CPT/HCPCS: 87491; 87591; 87661; 87801

== ENCOUNTER 2020-12-25 08:00 | Outpatient (CLI) | payer OTHER ==
[2020-12-25 20:46] LABS: BACTERIAL VAGINOSIS DNA NEGATIVE (NEGATIVE); CANDIDA GLABRATA DNA NEGATIVE (NEGATIVE); CANDIDA GROUP DNA NEGATIVE (NEGATIVE); CANDIDA KRUSEI DNA NEGATIVE (NEGATIVE); TRICHOMONAS VAGINALIS DNA NEGATIVE (NEGATIVE)
[2020-12-25 23:22] LABS: CHLAMYDIA TRACHOMATIS DNA NEGATIVE (NEGATIVE); NEISSERIA GONORRHOEAE DNA NEGATIVE (NEGATIVE); TRICHOMONAS VAGINALIS DNA NEGATIVE (NEGATIVE)
== END 2020-12-25 23:59 | disposition home or self-care (01) ==
LOC: LAB.N 08:00
PROVIDERS: ATTEND Physician Assistant Medical
DX: R39.9 Unspecified symptoms and signs involving the genitourinary system (principal)
CPT/HCPCS: 87086; 87491; 87591; 87661; 87801

== ENCOUNTER 2021-01-29 13:37 | Outpatient (CLI) | payer OTHER ==
[2021-01-29 20:48] LABS: BACTERIAL VAGINOSIS DNA NEGATIVE (NEGATIVE); CANDIDA GLABRATA DNA NEGATIVE (NEGATIVE); CANDIDA GROUP DNA NEGATIVE (NEGATIVE); CANDIDA KRUSEI DNA NEGATIVE (NEGATIVE); TRICHOMONAS VAGINALIS DNA NEGATIVE (NEGATIVE)
[2021-01-29 21:59] LABS: CHLAMYDIA TRACHOMATIS DNA NEGATIVE (NEGATIVE); NEISSERIA GONORRHOEAE DNA NEGATIVE (NEGATIVE); TRICHOMONAS VAGINALIS DNA NEGATIVE (NEGATIVE)
== END 2021-01-29 23:59 | disposition home or self-care (01) ==
LOC: LAB.N 13:37
PROVIDERS: ATTEND Physician Assistant Medical
DX: R39.9 Unspecified symptoms and signs involving the genitourinary system (principal)
CPT/HCPCS: 87491; 87591; 87661; 87801

== ENCOUNTER 2021-02-15 10:20 | Outpatient (CLI) | payer OTHER ==
[2021-02-15 21:41] LABS: BACTERIAL VAGINOSIS DNA NEGATIVE (NEGATIVE); CANDIDA GLABRATA DNA NEGATIVE (NEGATIVE); CANDIDA GROUP DNA NEGATIVE (NEGATIVE); CANDIDA KRUSEI DNA NEGATIVE (NEGATIVE); TRICHOMONAS VAGINALIS DNA NEGATIVE (NEGATIVE)
[2021-02-15 23:50] LABS: CHLAMYDIA TRACHOMATIS DNA NEGATIVE (NEGATIVE); NEISSERIA GONORRHOEAE DNA NEGATIVE (NEGATIVE); TRICHOMONAS VAGINALIS DNA NEGATIVE (NEGATIVE)
== END 2021-02-15 10:25 ==
LOC: LAB.N 10:20
PROVIDERS: ATTEND Physician Assistant Medical
DX: Z11.3 Encounter for screening for infections with a predominantly sexual mode of transmission (principal)
CPT/HCPCS: 87491; 87591; 87661; 87801

== ENCOUNTER 2021-07-08 08:00 | Outpatient (CLI) | payer OTHER ==
[2021-07-09 02:06] LABS: BACTERIAL VAGINOSIS DNA NEGATIVE (NEGATIVE); CANDIDA GLABRATA DNA NEGATIVE (NEGATIVE); CANDIDA GROUP DNA NEGATIVE (NEGATIVE); CANDIDA KRUSEI DNA NEGATIVE (NEGATIVE); TRICHOMONAS VAGINALIS DNA NEGATIVE (NEGATIVE)
[2021-07-09 05:47] LABS: CHLAMYDIA TRACHOMATIS DNA NEGATIVE (NEGATIVE); NEISSERIA GONORRHOEAE DNA NEGATIVE (NEGATIVE); TRICHOMONAS VAGINALIS DNA NEGATIVE (NEGATIVE)
== END 2021-07-08 23:59 ==
LOC: LAB.N 08:00
PROVIDERS: ATTEND Nurse Practitioner
DX: Z11.3 Encounter for screening for infections with a predominantly sexual mode of transmission (principal)
CPT/HCPCS: 87491; 87591; 87661; 87801

== ENCOUNTER 2021-08-06 08:00 | Outpatient (CLI) | payer OTHER ==
[2021-08-06 23:08] LABS: CHLAMYDIA TRACHOMATIS DNA NEGATIVE (NEGATIVE); NEISSERIA GONORRHOEAE DNA NEGATIVE (NEGATIVE); TRICHOMONAS VAGINALIS DNA NEGATIVE (NEGATIVE)
[2021-08-06 23:46] LABS: BACTERIAL VAGINOSIS DNA POSITIVE (NEGATIVE); CANDIDA GLABRATA DNA NEGATIVE (NEGATIVE); CANDIDA GROUP DNA NEGATIVE (NEGATIVE); CANDIDA KRUSEI DNA NEGATIVE (NEGATIVE); TRICHOMONAS VAGINALIS DNA NEGATIVE (NEGATIVE)
== END 2021-08-06 23:59 | disposition home or self-care (01) ==
LOC: LAB 08:00
PROVIDERS: ATTEND Family Medicine
DX: Z11.3 Encounter for screening for infections with a predominantly sexual mode of transmission (principal)
CPT/HCPCS: 87491; 87591; 87661; 87801

== ENCOUNTER 2021-09-16 08:00 | Outpatient (CLI) | payer OTHER ==
[2021-09-16 19:49] LABS: BACTERIAL VAGINOSIS DNA POSITIVE (NEGATIVE); CANDIDA GLABRATA DNA NEGATIVE (NEGATIVE); CANDIDA GROUP DNA NEGATIVE (NEGATIVE); CANDIDA KRUSEI DNA NEGATIVE (NEGATIVE); TRICHOMONAS VAGINALIS DNA NEGATIVE (NEGATIVE)
[2021-09-16 23:00] LABS: CHLAMYDIA TRACHOMATIS DNA NEGATIVE (NEGATIVE); NEISSERIA GONORRHOEAE DNA NEGATIVE (NEGATIVE)
== END 2021-09-16 08:01 | disposition home or self-care (01) ==
LOC: LAB.N 08:00
PROVIDERS: ATTEND Registered Nurse
DX: N89.8 Other specified noninflammatory disorders of vagina (principal); Z11.3 Encounter for screening for infections with a predominantly sexual mode of transmission
CPT/HCPCS: 81514; 87491; 87591; 87661

== ENCOUNTER 2022-03-07 08:00 | Outpatient (CLI) | payer OTHER ==
[2022-03-07 20:03] LABS: BACTERIAL VAGINOSIS DNA NEGATIVE (NEGATIVE); CANDIDA GLABRATA DNA NEGATIVE (NEGATIVE); CANDIDA GROUP DNA NEGATIVE (NEGATIVE); CANDIDA KRUSEI DNA NEGATIVE (NEGATIVE); TRICHOMONAS VAGINALIS DNA NEGATIVE (NEGATIVE)
[2022-03-07 20:33] LABS: CHLAMYDIA TRACHOMATIS DNA NEGATIVE (NEGATIVE); NEISSERIA GONORRHOEAE DNA NEGATIVE (NEGATIVE)
== END 2022-03-07 23:59 | disposition home or self-care (01) ==
LOC: LAB.N 08:00
PROVIDERS: ATTEND Nurse Practitioner
DX: Z11.3 Encounter for screening for infections with a predominantly sexual mode of transmission (principal)
CPT/HCPCS: 81514; 87491; 87591; 87661

== ENCOUNTER 2022-07-01 07:00 | Outpatient (CLI) | payer OTHER ==
[2022-07-01 22:02] LABS: BACTERIAL VAGINOSIS DNA POSITIVE (NEGATIVE); CANDIDA GROUP DNA NEGATIVE (NEGATIVE); CANDIDA KRUSEI DNA NEGATIVE (NEGATIVE); TRICHOMONAS VAGINALIS DNA NEGATIVE (NEGATIVE)
[2022-07-01 22:03] LABS: CANDIDA GLABRATA DNA NEGATIVE (NEGATIVE)
[2022-07-01 23:15] LABS: CHLAMYDIA TRACHOMATIS DNA NEGATIVE (NEGATIVE); NEISSERIA GONORRHOEAE DNA NEGATIVE (NEGATIVE)
== END 2022-07-01 23:59 | disposition home or self-care (01) ==
LOC: LAB.WC 07:00
PROVIDERS: ATTEND Nurse Practitioner
DX: N89.8 Other specified noninflammatory disorders of vagina (principal); Z11.3 Encounter for screening for infections with a predominantly sexual mode of transmission
CPT/HCPCS: 81514; 87491; 87591; 87661

== ENCOUNTER 2022-07-01 11:00 | Outpatient (CLI) | payer OTHER ==
[2022-07-01 11:18] LABS: HGB - HEMOGLOBIN 13.6 g/dL (12.0-16.0); MEAN CORPUSCULAR HEMOGLOBIN 31.9 pg (27.0-31.0); MEAN CORPUSCULAR HGB CONC 33.2 g/dL (32.0-36.0); MEAN PLATELET VOLUME 9.4 fL (7.9-10.8); RED BLOOD COUNT 4.27 10^6/uL (4.20-5.40); RED CELL DISTRIBUTION WIDTH 13.3 % (12.0-15.0)
[2022-07-01 11:48] LABS: THYROID STIMULATING HORMONE 2.53 uIU/mL (0.34-5.60)
[2022-07-01 11:51] LABS: FREE T4 (FREE THYROXINE) 0.72 ng/dL (0.58-1.64)
[2022-07-01 11:54] LABS: FERRITIN 26.1 ng/mL (11.0-306.8)
[2022-07-02 08:09] LABS: HBsAG SCREEN Negative (Negative)
[2022-07-03 03:38] LABS: RPR Non Reactive (Non Reactive)
[2022-07-03 04:07] LABS: HCV AB <0.1 s/co ratio (0.0-0.9)
[2022-07-03 10:07] LABS: HIV SCREEN 4TH GENERATION Non Reactive (Non Reactive)
[2022-07-04 16:07] LABS: HSV 1 IGG TYPE SPEC <0.91 index (0.00-0.90); HSV 2 IGG SUPPLEMENTAL TEST Positive (Negative); HSV 2 IGG TYPE SPEC 2.67 index (0.00-0.90)
== END 2022-07-01 11:01 | disposition home or self-care (01) ==
LOC: LAB 11:00
PROVIDERS: ATTEND Nurse Practitioner
DX: L65.9 Nonscarring hair loss, unspecified (principal); Z11.3 Encounter for screening for infections with a predominantly sexual mode of transmission
CPT/HCPCS: 36415; 81599; 82728; 84439; 84443; 85027; 86038; 86592; 86695; 86696; 86803; 87340; 87389

== ENCOUNTER 2022-10-05 12:45 | Outpatient (CLI) | payer OTHER ==
[2022-10-05 20:47] LABS: BACTERIAL VAGINOSIS DNA NEGATIVE (NEGATIVE); CANDIDA KRUSEI DNA NEGATIVE (NEGATIVE); TRICHOMONAS VAGINALIS DNA NEGATIVE (NEGATIVE)
[2022-10-05 20:48] LABS: CANDIDA GLABRATA DNA NEGATIVE (NEGATIVE); CANDIDA GROUP DNA NEGATIVE (NEGATIVE)
[2022-10-05 22:57] LABS: CHLAMYDIA TRACHOMATIS DNA NEGATIVE (NEGATIVE)
[2022-10-05 22:58] LABS: NEISSERIA GONORRHOEAE DNA NEGATIVE (NEGATIVE)
== END 2022-10-05 13:00 | disposition home or self-care (01) ==
LOC: LAB.N 12:45
PROVIDERS: ATTEND Physician Assistant
DX: N89.9 Noninflammatory disorder of vagina, unspecified (principal)
CPT/HCPCS: 81514; 87491; 87591; 87661

== ENCOUNTER 2023-03-03 08:00 | Outpatient (CLI) | payer OTHER ==
[2023-03-03 18:56] LABS: BACTERIAL VAGINOSIS DNA POSITIVE (NEGATIVE); CANDIDA GLABRATA DNA NEGATIVE (NEGATIVE); CANDIDA GROUP DNA POSITIVE (NEGATIVE); CANDIDA KRUSEI DNA NEGATIVE (NEGATIVE); TRICHOMONAS VAGINALIS DNA NEGATIVE (NEGATIVE)
[2023-03-03 21:21] LABS: CHLAMYDIA TRACHOMATIS DNA NEGATIVE (NEGATIVE); NEISSERIA GONORRHOEAE DNA NEGATIVE (NEGATIVE)
== END 2023-03-03 23:59 | disposition home or self-care (01) ==
LOC: LAB.WC 08:00
PROVIDERS: ATTEND Nurse Practitioner
DX: L29.8 Other pruritus (principal); Z11.3 Encounter for screening for infections with a predominantly sexual mode of transmission
CPT/HCPCS: 81514; 87491; 87591; 87661

== ENCOUNTER 2023-04-09 09:37 | Emergency (ER) | payer OTHER ==
[2023-04-09] MEDS ORDERED: IBUPROFEN 600 MG TABLET PO STA (09:55)
[2023-04-09] MEDS ORDERED: HYDROcod/ACETAM 5/325 MG TABLET PO STA (09:55)
--- NOTE | 2023-04-09 09:56 | ED Physician Documentation ---
PD HPI LOWER EXT INJURY - Stated complaint Stated Complaint: LT KNEE INJ - Chief complaint Chief Complaint: Ext Problem - History obtained from History obtained from: Patient (She fell last night, does not exactly remember the mechanism. She hurt her left knee. No other injuries. No possibility of .) PD PAST MEDICAL HISTORY - Past Medical History Past Medical History: No Cardiovascular: None Respiratory: None Neuro: None Endocrine/Autoimmune: None - Past Surgical History Past Surgical History: Yes Ortho: ACL reconstruction HEENT: Tonsil/Adenoidectomy - Present Medications Home Medications: Ambulatory Orders Medication Instructions Recorded Confirmed HYDROcod/ACETAM 5/325 [[place] 5/325] 1 - 2 tab PO Q6H PRN #15 tablet 04/09/23 buPROPion HCL [Bupropion Xl] 300 mg PO DAILY 04/09/23 04/09/23 - Allergies Allergies/Adverse Reactions: Allergies Allergy/AdvReac Type Severity Reaction Status Date / Time No Known Drug Allergies Allergy Verified 04/09/23 09:46 - Social History Does the pt smoke?: No Smoking Status: Never smoker Does the pt drink ETOH?: Yes Does the pt have substance abuse?: No - Immunizations Immunizations are current?: Yes - POLST Patient has POLST: No PD ED PE NORMAL - Vitals Vital signs reviewed: Yes - General General: Alert and oriented X 3, No acute distress - Derm Derm: Normal color, Warm and dry - Extremities Extremities: Other (Tender over the lateral joint line of the left knee. No deformity or bruising. Ligamentous testing is intact.) - Neuro Neuro: Alert and oriented X 3, Normal speech Results - Vitals Vitals: Vital Signs - 24 hr 04/09/23 09:43 Temperature 36.4 C L Heart Rate 86 Respiratory 20 Rate Blood Pressure 136/57 H O2 Saturation 96 Oxygen O2 Source Room air - Rads (name of study) 4 view x-ray left knee is unremarkable Relevant Findings:: Final report received, EMP independent interpretation of test PD Medical Decision Making - ED course ED course: Clinically seeming like an LCL strain with negative x-rays. Placed in articulating knee brace and controlled pain, crutches, work note. Ortho follow- up advised. Departure - Departure Disposition: 01 Home, Self Care Clinical Impression: Sprain of LCL (lateral collateral ligament) of knee Qualifiers: Encounter type: initial encounter Laterality: left Qualified Code(s): S83.422A - Sprain of lateral collateral ligament of left knee, initial encounter Condition: Good Record reviewed to determine appropriate education?: Yes Instructions: ED Sprain Knee Follow-Up: Orthopedic Care [Provider Group] Prescriptions: HYDROcod/ACETAM 5/325 [[place] 5/325] 1 - 2 tab PO Q6H PRN #15 tablet PRN Reason: Pain Comments: Based on location of your pain and negative x-rays this seems like a strain of the lateral collateral ligament of the left knee. If not better in a few days please follow up with our orthopedic surgeons, call for an appointment. I sent a prescription for some pain medication up to the [facility] in [place]. You can also take ibuprofen per package instructions for the pain as well, [id number]. I am prescribing a short course of narcotic pain medication for you. These are potentially dangerous and addictive medications that should be used carefully. These medications may constipate you. Take an [id number] stool softener (docusate) twice daily with plenty of water while taking these medications. If you go 24 hours without a bowel movement, take [id number]-[id number] miralax, per p acsara instructions. Do not drink or drive while taking these medications. If you received narcotic or sedating medications while in the emergency department, do not drive for 24 hours. Store this medication in a safe, secure place and out of reach of children. It is a violation of federal law to give or sell this medication to another person or to use in a manner other than prescribed. The ED will not refill narcotic prescriptions, including prescriptions lost or stolen. To dispose of unwanted medications: 1. [facility] provides a drop box for medication in pill form only (no liquids) 8:00 am to 4:30 p.m. Monday-Monday in the lobby of the [facility], [address] [place] [address]. Empty pills into ziplock bag before disposal. Call [phone] for information. 2.[employer] is a free service available to all [facility] residents. Go to [email or web address] Note that many narcotic pain relievers also contain Tylenol/acetaminophen. Please ensure that your total dose of acetaminophen from all sources does not exceed 3 g (3000 mg) per day. Forms: PCP List, Activity restrictions
--- NOTE | 2023-04-09 10:16 | XRAY Report ---
PROCEDURE: Knee 4 View LT INDICATIONS: knee inj TECHNIQUE: 4 views of the knee(s) were acquired. COMPARISON: None. FINDINGS: Bones: No fractures or dislocations. No suspicious bony lesions. Soft tissues: No knee joint effusion. No suspicious soft tissue calcifications or masses. IMPRESSION: No acute bony abnormality. Reviewed by: Michael Brooke MD on 04/09/2023 9:15 AM [facility] Approved by: Michael Brooke MD on 04/09/2023 9:15 AM [facility] Station ID: [id number]
[2023-04-09 11:08] VITALS: BP 119/47; O2SAT 100
== END 2023-04-09 11:17 | disposition home or self-care (01) ==
LOC: ED 09:37
DX: S83.422A Sprain of lateral collateral ligament of left knee, initial encounter (principal); W19.XXXA Unspecified fall, initial encounter
CPT/HCPCS: 73564; 99283; 99284; A9270

== ENCOUNTER 2023-05-08 08:00 | Outpatient (CLI) | payer OTHER ==
[2023-05-08 19:54] LABS: CHLAMYDIA TRACHOMATIS DNA NEGATIVE (NEGATIVE); NEISSERIA GONORRHOEAE DNA NEGATIVE (NEGATIVE)
[2023-05-08 22:37] LABS: BACTERIAL VAGINOSIS DNA NEGATIVE (NEGATIVE); CANDIDA GLABRATA DNA NEGATIVE (NEGATIVE); CANDIDA GROUP DNA POSITIVE (NEGATIVE); CANDIDA KRUSEI DNA NEGATIVE (NEGATIVE); TRICHOMONAS VAGINALIS DNA NEGATIVE (NEGATIVE)
== END 2023-05-08 23:59 | disposition home or self-care (01) ==
LOC: LAB.WC 08:00
PROVIDERS: ATTEND Nurse Practitioner
DX: Z11.3 Encounter for screening for infections with a predominantly sexual mode of transmission (principal)
CPT/HCPCS: 81514; 87491; 87591; 87661

== ENCOUNTER 2023-06-25 00:11 | Emergency (ER) | payer OTHER ==
--- NOTE | 2023-06-25 00:42 | ED Physician Documentation ---
PD HPI MHE - Stated complaint Stated Complaint: ETOH, SI - History obtained from History obtained from: Patient, EMS - History of Present Illness Primary symptom: Suicidal ideation - Additional information Additional information: 23-year-old female presents by EMS after making suicidal statements. Patient is heavily intoxicated and endorsing wanting to kill herself [place]. She states that she hates her life and finds no meaning in it anymore. Review of Systems Unable to obtain: Intoxicated PD PAST MEDICAL HISTORY - Past Medical History Cardiovascular: None Respiratory: None Neuro: None Endocrine/Autoimmune: None - Past Surgical History Past Surgical History: Yes Ortho: ACL reconstruction HEENT: Tonsil/Adenoidectomy - Present Medications Home Medications: Ambulatory Orders Medication Instructions Recorded Confirmed HYDROcod/ACETAM 5/325 [[place] 5/325] 1 - 2 tab PO Q6H PRN #15 tablet 04/09/23 buPROPion HCL [Bupropion Xl] 300 mg PO DAILY 04/09/23 04/09/23 - Allergies Allergies/Adverse Reactions: Allergies Allergy/AdvReac Type Severity Reaction Status Date / Time No Known Drug Allergies Allergy Verified 06/25/23 00:40 - Social History Does the pt smoke?: No Smoking Status: Never smoker Does the pt drink ETOH?: Yes Does the pt have substance abuse?: No - Immunizations Immunizations are current?: Yes - POLST Patient has POLST: No PD ED PE NORMAL - Vitals Vital signs reviewed: Yes - General General: Other (Awake, alert, intoxicated) - Neck Neck: Supple, no meningeal sign - Cardiac Cardiac: RRR - Respiratory Respiratory: No respiratory distress, Clear bilaterally - Abdomen Abdomen: Soft, Non tender, Non distended - Derm Derm: Normal color, Warm and dry, No rash - Neuro Neuro: brace maker 2-12 intact, No motor deficit, Normal speech, Other (confused, intoxicated) Results - Vitals Vitals: Vital Signs - 24 hr 06/25/23 00:32 Temperature 36.8 C Heart Rate 87 Respiratory 16 Rate Blood Pressure 125/76 O2 Saturation 96 Oxygen O2 Source Room air - Labs Labs: Laboratory Tests 06/25/23 06/25/23 06/25/23 00:40 00:45 00:45 WBC 8.7 RBC 4.38 Hgb 14.2 Hct 42.3 MCV 96.6 MCH 32.4 H MCHC 33.6 RDW 12.6 Plt Count 308 MPV 9.8 Neut # (Auto) 4.9 Lymph # (Auto) 3.2 [place] # (Auto) 0.5 Eos # (Auto) 0.1 Baso # (Auto) 0.1 Absolute Nucleated RBC 0.00 Nucleated RBC % 0.0 Sodium 143 Potassium 4.1 Chloride 109 Carbon Dioxide 24 Anion Gap 10.0 BUN 10 Creatinine 0.9 Estimated GFR (MDRD) 77 L Glucose 100 Calcium 9.9 Total Bilirubin 0.3 AST 27 ALT 17 Alkaline Phosphatase 51 Total Protein 7.8 Albumin 4.8 Globulin 3.0 Albumin/Globulin Ratio 1.6 Urine Color YELLOW Urine Clarity CLEAR Urine pH 5.5 Ur Specific [place] <=1.005 Urine Protein NEGATIVE Urine Glucose (UA) NEGATIVE Urine Ketones NEGATIVE Urine Occult Blood NEGATIVE Urine Nitrite NEGATIVE Urine Bilirubin NEGATIVE Urine Urobilinogen 0.2 (NORMAL) Ur Leukocyte Esterase NEGATIVE Ur Microscopic Review NOT INDICATED Urine Culture Comments NOT INDICATED Urine HCG, Qual NEGATIVE Salicylates < 1.5 Urine Opiates Screen NEGATIVE Ur Buprenorphine Scrn NEGATIVE Ur Oxycodone Screen NEGATIVE Urine Methadone Screen NEGATIVE Acetaminophen < 0.1 Ur Barbiturates Screen NEGATIVE Ur Tricyclics Screen NEGATIVE Ur Phencyclidine Scrn NEGATIVE Ur Amphetamine Screen NEGATIVE U Methamphetamines Scrn NEGATIVE U Benzodiazepines Scrn NEGATIVE Urine Cocaine Screen NEGATIVE U Cannabinoids Screen NEGATIVE Ur Drug Screen Comment CUTOFF CONC BELOW: Ethyl Alcohol 307.2 SARS-CoV-2 (PCR) 06/25/23 02:11 WBC RBC Hgb Hct MCV MCH MCHC RDW Plt Count MPV Neut # (Auto) Lymph # (Auto) [place] # (Auto) Eos # (Auto) Baso # (Auto) Absolute Nucleated RBC Nucleated RBC % Sodium Potassium Chloride Carbon Dioxide Anion Gap BUN Creatinine Estimated GFR (MDRD) Glucose Calcium Total Bilirubin AST ALT Alkaline Phosphatase Total Protein Albumin Globulin Albumin/Globulin Ratio Urine Color Urine Clarity Urine pH Ur Specific [place] Urine Protein Urine Glucose (UA) Urine Ketones Urine Occult Blood Urine Nitrite Urine Bilirubin Urine Urobilinogen Ur Leukocyte Esterase Ur Microscopic Review Urine Culture Comments Urine HCG, Qual Salicylates Urine Opiates Screen Ur Buprenorphine Scrn Ur Oxycodone Screen Urine Methadone Screen Acetaminophen Ur Barbiturates Screen Ur Tricyclics Screen Ur Phencyclidine Scrn Ur Amphetamine Screen U Methamphetamines Scrn U Benzodiazepines Scrn Urine Cocaine Screen U Cannabinoids Screen Ur Drug Screen Comment Ethyl Alcohol SARS-CoV-2 (PCR) NOT DETECTED PD Medical Decision Making - ED course Complexity details: reviewed old records, reviewed results, re-evaluated patient, considered differential, d/w patient, d/w family ED course: Intoxicated, making suicidal statements with plan. Shortly after arriving to the emergency department the patient became very agitated and insisted on leaving. Law enforcement was called to assist. Patient to be made involuntary due to intoxication and high risk of suicide. Patient was able to be verbally de-escalated, however Haldol, Ativan, Benadryl ordered on standby if patient becomes agitated and unable to be verbally redirected. Alcohol level 307. Imaging negative for acute findings. Patient is ambulatory without pain or distress. DCR evaluated patient and discussed patient's care with her mother. Extensive safety planning made with DCR. Mother feels safe taking patient home and will get patient help with her alcohol use. Patient discharged home in stable condition with her mother.Spoke with patient's mother, who stated that patient has recently been hanging out with an unknown gentleman, and she believes that this person is leading her daughter to use drugs and other illegal substances. Mother states that she has filed a police report about this man. Law enforcement came and spoke with patient. Calm, cooperative. Placed under involuntary hold. 0230 -patient suddenly stood up and ran towards the ambulance doors and staff unable to catch patient. ICOM called to retrieve patient. 0250 - Patient returned by law enforcement. She states that she jumped 10 feet and landed incorrectly, hurting her knee. There is a scrape over her L knee but no obvious deformity. Will order knee XR, tetanus update. Imaging negative for acute findings. Patient is ambulatory without pain or distress. DCR evaluated patient and discussed patient's care with her mother. Extensive safety planning made with DCR. Mother feels safe taking patient home and will get patient help with her alcohol use. Patient discharged home in stable condition with her mother. Departure - Departure Disposition: Home, Self Care Clinical Impression: Depression, Suicidal ideation, Alcoholic intoxication Condition: Stable Instructions: ED Alcohol Intoxication, ED Depression Comments: Crisis hotline: [address] [facility] [phone]
[2023-06-25 00:48] VITALS: BP 125/76; O2SAT 96
[2023-06-25 00:52] LABS: BASOPHILS # (AUTO) 0.1 10^3/uL (0.0-0.1); BASOPHILS % (AUTO) 0.6 %; EOSINOPHILS # (AUTO) 0.1 10^3/uL (0.0-0.7); EOSINOPHILS % (AUTO) 0.6 %; HCT - HEMATOCRIT 42.3 % (37.0-47.0); HGB - HEMOGLOBIN 14.2 g/dL (12.0-16.0); LYMPHOCYTES # (AUTO) 3.2 10^3/uL (1.5-3.5); LYMPHOCYTES % (AUTO) 36.8 %; MEAN CORPUSCULAR HEMOGLOBIN 32.4 pg (27.0-31.0); MEAN CORPUSCULAR HGB CONC 33.6 g/dL (32.0-36.0); MEAN CORPUSCULAR VOLUME 96.6 fL (81.0-99.0); MEAN PLATELET VOLUME 9.8 fL (7.9-10.8); MONOCYTES # (AUTO) 0.5 10^3/uL (0.0-1.0); MONOCYTES % (AUTO) 5.8 %; NEUTROPHILS # (AUTO) 4.9 10^3/uL (1.5-6.6); PLT - PLATELET COUNT 308 10^3/uL (130-450); RED BLOOD COUNT 4.38 10^6/uL (4.20-5.40); RED CELL DISTRIBUTION WIDTH 12.6 % (12.0-15.0); WHITE BLOOD COUNT 8.7 x10^3/uL (4.8-10.8)
[2023-06-25 01:21] LABS: ALBUMIN 4.8 g/dL (3.2-5.5); ALBUMIN/GLOBULIN RATIO 1.6 (1.0-2.2); ALKALINE PHOSPHATASE 51 IU/L (42-121); ALT ALANINE AMINOTRANSFERASE 17 IU/L (10-60); AST ASPARTATE AMINOTRANSFERASE 27 IU/L (10-42); BILIRUBIN,TOTAL 0.3 mg/dL (0.2-1.0); BUN - BLOOD UREA NITROGEN 10 mg/dL (6-20); CALCIUM 9.9 mg/dL (8.5-10.3); CARBON DIOXIDE - CO2 24 mmol/L (21-32); CHLORIDE 109 mmol/L (101-111); CREATININE 0.9 mg/dL (0.6-1.3); ETOH - ETHANOL 307.2 mg/dL; GFR - MDRD 77 (>89); GLUCOSE 100 mg/dL (74-104); POTASSIUM 4.1 mmol/L (3.5-4.5); SODIUM 143 mmol/L (135-145); TOTAL PROTEIN 7.8 g/dL (6.4-8.9)
[2023-06-25 01:22] LABS: ACETAMINOPHEN < 0.1 ug/mL; SALICYLATE < 1.5 mg/dL
[2023-06-25 01:41] LABS: BILIRUBIN,URINE NEGATIVE (NEGATIVE); GLUCOSE, URINE (UA) NEGATIVE (NEGATIVE); KETONES,URINE (UA) NEGATIVE (NEGATIVE); LEUKOCYTE ESTERASE, URINE NEGATIVE (NEGATIVE); NITRITE,URINE NEGATIVE (NEGATIVE); OCCULT BLOOD,URINE NEGATIVE (NEGATIVE); PH,URINE 5.5 PH (5.0-7.5); PROTEIN,URINE NEGATIVE (NEGATIVE); UROBILINOGEN,URINE 0.2 (NORMAL) E.U./dL (NORMAL)
[2023-06-25 02:00] LABS: CLARITY,URINE CLEAR (CLEAR)
[2023-06-25 02:01] LABS: AMPHETAMINE SCREEN,URINE NEGATIVE (NEGATIVE); BARBITURATE SCREEN,UR NEGATIVE (NEGATIVE); BENZODIAZEPINES SCREEN, URINE NEGATIVE (NEGATIVE); BUPRENORPHINE SCREEN, URINE NEGATIVE (NEGATIVE); COCAINE SCREEN URINE NEGATIVE (NEGATIVE); HCG UR QUAL NEGATIVE; METHADONE SCREEN, URINE NEGATIVE (NEGATIVE); METHAMPHETAMINES SCREEN, URINE NEGATIVE (NEGATIVE); OPIATE SCREEN, URINE NEGATIVE (NEGATIVE); OXYCODONE SCREEN, URINE NEGATIVE (NEGATIVE); THC CANNABINOID SCREEN, URINE NEGATIVE (NEGATIVE); TRICYCLIC ANTIDEPRESSANT,URINE NEGATIVE (NEGATIVE)
[2023-06-25] MEDS ORDERED: TETANUS/DIPHTHERIA/PERTUSSIS 0.5 ML SYRINGE IM ONE (03:02)
[2023-06-25] MEDS: NICOTINE 14 MG PATCH TOP STA (03:26)
[2023-06-25] MEDS: diphenhydrAMINE INJ 50 MG/ML VIAL IM STA ×2 (04:16)
[2023-06-25] MEDS: LORazepam 2 MG/ML VIAL IM STA ×2 (04:16→04:17)
[2023-06-25] MEDS: HALOPERIDOL 5 MG/ML VIAL IM STA ×2 (04:16→04:17)
[2023-06-25] MEDS: TETANUS/DIPHTHERIA/PERTUSSIS 0.5 ML SYRINGE IM ONE (04:44)
--- NOTE | 2023-06-25 07:22 | CT Report ---
PROCEDURE: Head WO INDICATIONS: FALL, ETOH, ERRATIC BEHAVIOR TECHNIQUE: Noncontrast 4.5 mm thick angled axial sections acquired from the foramen magnum to the vertex. For r adiation dose reduction, the following was used: automated exposure control, adjustment of mA and/or kV according to patient size. COMPARISON: Head CT, 05/07/2020. FINDINGS: Image quality: Excellent. CSF spaces: Basal cisterns are patent. No extra-axial fluid collections. Ventricles are normal in size and shape. Brain: No midline shift. No intracranial masses or hemorrhage. Yen-white matter interface is norm al. Skull and face: Calvarium and visualized facial bones are intact, without suspicious lesions. Sinuses: Visualized sinuses and mastoids are clear. IMPRESSION: No acute intracranial pathology. Findings are concordant with preliminary interpretation provided by [facility]. Reviewed by: Carlotta Madden MD on 06/25/2023 7:21 AM PST Approved by: Carlotta Madden MD on 06/25/2023 7:21 AM PST Station ID: [id number]
--- NOTE | 2023-06-25 07:29 | XRAY Report ---
PROCEDURE: Knee 3V LT INDICATIONS: fall x10ft, knee pain TECHNIQUE: 3 views of the knee(s) were acquired. COMPARISON: None. FINDINGS: Bones: No fractures or dislocations. No suspicious bony lesions. Soft tissues: No knee joint effusion. No suspicious soft tissue calcifications or masses. IMPRESSION: No acute bony abnormality. Findings are concordant with preliminary interpretation provided by [facility]. Reviewed by: Carlotta Madden MD on 06/25/2023 7:27 AM PST Approved by: Carlotta Madden MD on 06/25/2023 7:27 AM PST Station ID: [id number]
== END 2023-06-25 06:09 | disposition home or self-care (01) ==
LOC: EDUNIT# → ED 00:11
DX: R45.851 Suicidal ideations (principal); F10.129 Alcohol abuse with intoxication, unspecified; Y90.8 Blood alcohol level of 240 mg/100 ml or more; Z23 Encounter for immunization
CPT/HCPCS: 36415; 70450; 73562; 80053; 80306; 80307; 80320; 80329; 81003; 81025; 85025; 87635; 90471; 90715; 99284; 99285; A9270; 81001; 87086

== ENCOUNTER 2023-06-30 21:21 | Emergency (ER) | payer OTHER ==
--- NOTE | 2023-06-30 21:25 | ED Physician Documentation ---
PD HPI MHE - Stated complaint Stated Complaint: SI - History obtained from History obtained from: Patient, Family - History of Present Illness Primary symptom: Suicidal ideation Contributing factors: Substance abuse - ETOH, Substance abuse - drugs - Additional information Additional information: HPI from patient and family (in ED at bedside). Patient c/o SI. She self-inflicted multiple lacerations to left FA at approximately 9 PM. Patient tells me she wanted to kill herself and was initially considering deeply cutting her wrists. She admits to heavy alcohol intake tonight as well as using cocaine. Patient was T+R from this ED five days ago under similar circumstances; after long ED stay and DCR consult, she was able to contract for safety and was discharged to care of her mother. Review of Systems Skin: reports: Laceration (s) Musculoskeletal: denies: Back pain, Extremity pain Psychiatric: reports: Suicidal PD PAST MEDICAL HISTORY - Past Medical History Cardiovascular: None Respiratory: None Neuro: None Endocrine/Autoimmune: None - Past Surgical History Past Surgical History: Yes Ortho: ACL reconstruction HEENT: Tonsil/Adenoidectomy - Present Medications Home Medications: Ambulatory Orders Medication Instructions Recorded Confirmed Disulfiram 500 mg PO DAILY #7 tab 07/01/23 LORazepam [Ativan] 1 mg PO Q8H PRN #7 tablet 07/01/23 - Allergies Allergies/Adverse Reactions: Allergies Allergy/AdvReac Type Severity Reaction Status Date / Time No Known Drug Allergies Allergy Verified 06/30/23 21:28 - Social History Does the pt smoke?: No Smoking Status: Never smoker Does the pt drink ETOH?: Yes Does the pt have substance abuse?: No - Immunizations Immunizations are current?: Yes - POLST Patient has POLST: No PD ED PE NORMAL - Vitals Vital signs reviewed: Yes - General General: Alert and oriented X 3, Well developed/nourished, Other (mood rapidly fluctuates: crying and anxious at times but periods of laughing inappropriately with pressured and loud speech) - HEENT HEENT: PERRL, EOMI - Cardiac Cardiac: No murmur - Respiratory Respiratory: No respiratory distress, Clear bilaterally - Abdomen Abdomen: Soft, Non tender - Neuro Neuro: Alert and oriented X 3 Eye Opening: Spontaneous Motor: Obeys Commands Verbal: Oriented GCS Score: 15 PD ED PE EXPANDED - Cardiac Cardiac: Tachy, Regular Rhythm - Extremities Extremities: Other (multiple linear superficial abrasions and lacerations to left forearm (flexor surface)) Results - Vitals Vitals: Vital Signs - 24 hr 07/01/23 07/01/23 13:00 19:35 Heart Rate 69 85 Respiratory 16 16 Rate Blood Pressure 101/65 134/78 H O2 Saturation 99 100 Oxygen O2 Source Room air - Labs Labs: Laboratory Tests 06/30/23 06/30/23 06/30/23 21:33 21:33 21:38 WBC 11.5 H RBC 4.21 Hgb 13.8 Hct 41.0 MCV 97.4 MCH 32.8 H MCHC 33.7 RDW 12.6 Plt Count 293 MPV 9.7 Neut # (Auto) 9.0 H Lymph # (Auto) 2.1 [place] # (Auto) 0.4 Eos # (Auto) 0.0 Baso # (Auto) 0.0 Absolute Nucleated RBC 0.00 Nucleated RBC % 0.0 Sodium 142 Potassium 3.9 Chloride 108 Carbon Dioxide 26 Anion Gap 8.0 BUN 8 Creatinine 0.9 Estimated GFR (MDRD) 77 L Glucose 121 H Calcium 9.2 Magnesium 2.0 Total Bilirubin 0.3 AST 27 ALT 14 Alkaline Phosphatase 46 Total Creatine Kinase 239 H Total Protein 7.7 Albumin 4.6 Globulin 3.1 Albumin/Globulin Ratio 1.5 Lipase 31 TSH 1.30 Urine Color YELLOW Urine Clarity CLEAR Urine pH 6.0 Ur Specific [place] 1.015 Urine Protein NEGATIVE Urine Glucose (UA) NEGATIVE Urine Ketones NEGATIVE Urine Occult Blood NEGATIVE Urine Nitrite NEGATIVE Urine Bilirubin NEGATIVE Urine Urobilinogen 0.2 (NORMAL) Ur Leukocyte Esterase NEGATIVE Ur Microscopic Review NOT INDICATED Urine Culture Comments NOT INDICATED Urine HCG, Qual NEGATIVE Salicylates < 1.5 Urine Opiates Screen NEGATIVE Ur Buprenorphine Scrn NEGATIVE Ur Oxycodone Screen NEGATIVE Urine Methadone Screen NEGATIVE Acetaminophen < 0.1 Ur Barbiturates Screen NEGATIVE Ur Tricyclics Screen NEGATIVE Ur Phencyclidine Scrn NEGATIVE Ur Amphetamine Screen NEGATIVE U Methamphetamines Scrn NEGATIVE U Benzodiazepines Scrn NEGATIVE Urine Cocaine Screen POSITIVE H U Cannabinoids Screen POSITIVE H Ur Drug Screen Comment CUTOFF CONC BELOW: Ethyl Alcohol 285.8 SARS-CoV-2 (PCR) 07/01/23 07/01/23 06:45 17:28 WBC RBC Hgb Hct MCV MCH MCHC RDW Plt Count MPV Neut # (Auto) Lymph # (Auto) [place] # (Auto) Eos # (Auto) Baso # (Auto) Absolute Nucleated RBC Nucleated RBC % Sodium Potassium Chloride Carbon Dioxide Anion Gap BUN Creatinine Estimated GFR (MDRD) Glucose Calcium Magnesium Total Bilirubin AST ALT Alkaline Phosphatase Total Creatine Kinase Total Protein Albumin Globulin Albumin/Globulin Ratio Lipase TSH Urine Color Urine Clarity Urine pH Ur Specific [place] Urine Protein Urine Glucose (UA) Urine Ketones Urine Occult Blood Urine Nitrite Urine Bilirubin Urine Urobilinogen Ur Leukocyte Esterase Ur Microscopic Review Urine Culture Comments Urine HCG, Qual Salicylates Urine Opiates Screen Ur Buprenorphine Scrn Ur Oxycodone Screen Urine Methadone Screen Acetaminophen Ur Barbiturates Screen Ur Tricyclics Screen Ur Phencyclidine Scrn Ur Amphetamine Screen U Methamphetamines Scrn U Benzodiazepines Scrn Urine Cocaine Screen U Cannabinoids Screen Ur Drug Screen Comment Ethyl Alcohol 91.1 SARS-CoV-2 (PCR) NOT DETECTED PD Medical Decision Making - ED course Complexity details: reviewed results, re-evaluated patient, considered differential, d/w patient, d/w family ED course: No concerning findings on CBC, ER abdominal panel. Serum ethanol level is 285 and urine drug screen is positive for cocaine and cannabinoids. As noted in HPI, above, patient exhibits rapidly fluctuating moods. At times she is anxious and crying but also exhibiting periods of laughing with loud, pressured speech. While awaiting test results, she is requesting something for anxiety; she is given 2 mg p.o. lorazepam. On reevaluation, she is appearing to be more anxious, becoming restless, and requesting more medication for her anxiety. She is given 2 mg IM lorazepam (note this is not for chemical restraint; patient is requesting medication for anxiety and is agreeable to the dosing and intramuscular form). Before there was adequate time for the IM lorazepam to have taken effect, the patient again is becoming visibly more anxious and agitated and is requesting for more medication. Given her reported cocaine use, alcohol use, and considering that notes from her ED visit 5 days ago include narrative of eloping from the emergency department requiring police to find her and bring her back, she is given 25 mg p.o. Vistaril and 5 mg IM Haldol. Again, none of these medications is given as chemical restraint; patient is requesting medication for her agitation and anxiety and is agreeable to IM medications. Fortunately, she responded well to these medications; she subsequently fell asleep, vital signs remained stable. For the remainder of my shift, she is resting comfortably. A repeat ethanol level is 90 and thus telepsychiatric consultation is requested. Consult is pending at the end of my shift and thus care of patient is turned over to oncoming ED physician (Dr. Lua). Departure - Departure Disposition: Home, Self Care Clinical Impression: Alcohol abuse, Suicidal ideation, Depression Condition: Good Instructions: ED Withdrawal Alcohol, ED Depression Follow-Up: your,doctor [Other] Prescriptions: LORazepam [Ativan] 1 mg PO Q8H PRN #7 tablet PRN Reason: Alcohol Withdrawal Disulfiram 500 mg PO DAILY #7 tab Comments: Your prescriptions were sent to [facility] in [place]. The Ativan needs to be closely controlled and dispensed by your family. If you change your mind about going through detox prior to leaving for [facility], you can contact [facility] at the contact information below. I have also included information for the crisis line. Please return if you worsen. My [facility] contact: [facility] [address] [place] [phone] Fax: Crisis Line and is available to talk to someone [email or web address] is also available to chat with someone online if you prefer. There are also many resources on this website and apps for your phone to help with your mental health You can also text the word START to [phone] to chat with someome via text. Forms: PCP List Discharge Date/Time: 07/01/23 19:36
[2023-06-30 21:46] LABS: BASOPHILS % (AUTO) 0.3 %; HGB - HEMOGLOBIN 13.8 g/dL (12.0-16.0); LYMPHOCYTES # (AUTO) 2.1 10^3/uL (1.5-3.5); LYMPHOCYTES % (AUTO) 18.1 %; MEAN CORPUSCULAR HEMOGLOBIN 32.8 pg (27.0-31.0); MEAN CORPUSCULAR HGB CONC 33.7 g/dL (32.0-36.0); MEAN CORPUSCULAR VOLUME 97.4 fL (81.0-99.0); MEAN PLATELET VOLUME 9.7 fL (7.9-10.8); MONOCYTES # (AUTO) 0.4 10^3/uL (0.0-1.0); NEUTROPHILS % (AUTO) 78.3 %; PLT - PLATELET COUNT 293 10^3/uL (130-450); RED BLOOD COUNT 4.21 10^6/uL (4.20-5.40); RED CELL DISTRIBUTION WIDTH 12.6 % (12.0-15.0); WHITE BLOOD COUNT 11.5 x10^3/uL (4.8-10.8)
[2023-06-30 21:50] LABS: BILIRUBIN,URINE NEGATIVE (NEGATIVE); GLUCOSE, URINE (UA) NEGATIVE (NEGATIVE); KETONES,URINE (UA) NEGATIVE (NEGATIVE); LEUKOCYTE ESTERASE, URINE NEGATIVE (NEGATIVE); NITRITE,URINE NEGATIVE (NEGATIVE); OCCULT BLOOD,URINE NEGATIVE (NEGATIVE); PROTEIN,URINE NEGATIVE (NEGATIVE); UROBILINOGEN,URINE 0.2 (NORMAL) E.U./dL (NORMAL)
[2023-06-30 21:53] LABS: CLARITY,URINE CLEAR (CLEAR)
[2023-06-30 21:54] LABS: HCG UR QUAL NEGATIVE
[2023-06-30 22:03] LABS: ALBUMIN 4.6 g/dL (3.2-5.5); ALBUMIN/GLOBULIN RATIO 1.5 (1.0-2.2); ALKALINE PHOSPHATASE 46 IU/L (42-121); ALT ALANINE AMINOTRANSFERASE 14 IU/L (10-60); AST ASPARTATE AMINOTRANSFERASE 27 IU/L (10-42); BILIRUBIN,TOTAL 0.3 mg/dL (0.2-1.0); BUN - BLOOD UREA NITROGEN 8 mg/dL (6-20); CALCIUM 9.2 mg/dL (8.5-10.3); CARBON DIOXIDE - CO2 26 mmol/L (21-32); CHLORIDE 108 mmol/L (101-111); CK- CREATINE KINASE 239 IU/L (30-223); CREATININE 0.9 mg/dL (0.6-1.3); ETOH - ETHANOL 285.8 mg/dL; GFR - MDRD 77 (>89); GLUCOSE 121 mg/dL (74-104); LIPASE 31 U/L (11-82); POTASSIUM 3.9 mmol/L (3.5-4.5); SODIUM 142 mmol/L (135-145); TOTAL PROTEIN 7.7 g/dL (6.4-8.9)
[2023-06-30 22:07] LABS: ACETAMINOPHEN < 0.1 ug/mL; SALICYLATE < 1.5 mg/dL
[2023-06-30 22:08] LABS: THC CANNABINOID SCREEN, URINE POSITIVE (NEGATIVE)
[2023-06-30 22:09] LABS: AMPHETAMINE SCREEN,URINE NEGATIVE (NEGATIVE); BARBITURATE SCREEN,UR NEGATIVE (NEGATIVE); BENZODIAZEPINES SCREEN, URINE NEGATIVE (NEGATIVE); BUPRENORPHINE SCREEN, URINE NEGATIVE (NEGATIVE); COCAINE SCREEN URINE POSITIVE (NEGATIVE); METHADONE SCREEN, URINE NEGATIVE (NEGATIVE); METHAMPHETAMINES SCREEN, URINE NEGATIVE (NEGATIVE); OPIATE SCREEN, URINE NEGATIVE (NEGATIVE); OXYCODONE SCREEN, URINE NEGATIVE (NEGATIVE); TRICYCLIC ANTIDEPRESSANT,URINE NEGATIVE (NEGATIVE)
[2023-06-30] MEDS: LORazepam 1 MG TABLET PO STA (22:33)
[2023-06-30] MEDS: LORazepam 2 MG/ML VIAL IM STA (23:05)
[2023-06-30] MEDS: HALOPERIDOL 5 MG/ML VIAL IM STA (23:18)
[2023-06-30] MEDS: hydrOXYzine PAMOATE 25 MG CAPSULE PO STA (23:19)
--- NOTE | 2023-07-01 13:20 | ED Physician Documentation ---
ED Addendum - Addendum Addendum: 07/01/23 Patient signed out to me at shift change. Repeat EtOH level this morning is 91. She is awaiting telepsychiatry evaluation. She has been calm and cooperative. 1320 - Still awaiting telepsychiatry evaluation. 07/01/23 14: 50 - Patient was seen by telepsychiatry. They were concerned during her assessment as patient appeared very evasive. Patient also would not allow them to speak to mother for collateral information. They are concerned as she was just here a few days ago with a similar presentation and safety plan at that time does not appear to have prevented Presentation. They are recommending that we evaluate for involuntary detainment. Patient understands that telepsychiatry is recommending inpatient treatment and patient does not want inpatient treatment. She states that she does not feel like she needs this and does not want to go. I have requested for DCR evaluation. 07/01/23 18:[address] Pt signed out to Dr. Ford at shift change.
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
[2023-07-01] MEDS: LORazepam 1 MG TABLET PO STA (16:51)
--- NOTE | 2023-07-01 19:11 | ED Physician Documentation ---
ED Addendum - Addendum Addendum: 07/01/23 19:15 23-year-old female is here for suicidal ideation and alcoholism. She was evaluated by telepsychiatry, they states that she was evasive and would not allow her family to participate in safety planning. Therefore the DCR was contacted. DCR evaluated the patient and spoke with mother and grandmother, all in the room together. The patient is planning to move to [facility] in 2 to 3 days. The family has removed all alcohol from the home, all old pills from the home. They are requesting Antabuse. Will prescribe this for 1 week. We also will prescribe a small amount of Ativan to help with any withdrawal symptoms. She was given phenobarbital and Ativan here. Patient is able to contract for safety, she is forward thinking. She agrees to the refrain from any alcohol or other drug use including cocaine. Patient was offered to go straight to detox, she declines this at this time but family requested information about [facility]. This was given. Patient and family counseled regarding signs and symptoms for which I believe and urgent re-evaluation would be necessary. Patient with good understanding of and agreement to plan and is comfortable going home at this time This document was made in part using voice recognition software. While efforts are made to proofread this document, sound alike and grammatical errors may occur. Departure - Departure Disposition: 01 Home, Self Care Clinical Impression: Alcohol abuse, Suicidal ideation Depression Qualifiers: Depression Type: unspecified Qualified Code(s): F32.A - Depression, unspecified Condition: Good Instructions: ED Withdrawal Alcohol, ED Depression Follow-Up: your,doctor [Other] Prescriptions: LORazepam [Ativan] 1 mg PO Q8H PRN #7 tablet PRN Reason: Alcohol Withdrawal Disulfiram 500 mg PO DAILY #7 tab Comments: Your prescriptions were sent to [facility] in [place]. The Ativan needs to be closely controlled and dispensed by your family. If you change your mind about going through detox prior to leaving for [place], you can contact [facility] at the contact information below. I have also included information for the crisis line. Please return if you worsen. My [facility] contact: [facility] [address] [place] [phone] Fax: Crisis Line and is available to talk to someone [email or web address] is also available to chat with someone online if you prefer. There are also many resources on this website and apps for your phone to help with your mental health You can also text the word START to [phone] to chat with someome via text. Forms: PCP List
[2023-07-01] MEDS: PHENobarbital 65 MG/ML VIAL IM STA (19:27)
[2023-07-01] MEDS: chlordiazePOXIDE 25 MG CAPSULE PO STA (19:27)
[2023-07-01 19:44] VITALS: BP 134/78; O2SAT 100
== END 2023-07-01 19:36 | disposition home or self-care (01) ==
LOC: ED 21:21
DX: S51.812A Laceration without foreign body of left forearm, initial encounter (principal); X78.9XXA Intentional self-harm by unspecified sharp object, initial encounter; F10.129 Alcohol abuse with intoxication, unspecified; Y90.4 Blood alcohol level of 80-99 mg/100 ml; F33.9 Major depressive disorder, recurrent, unspecified; F10.94 Alcohol use, unspecified with alcohol-induced mood disorder
CPT/HCPCS: 36415; 80053; 80306; 80307; 80320; 80329; 81003; 81025; 82550; 83690; 83735; 84443; 85025; 87635; 96372; 99283; 99285; A9270; G0427; J2060; J2560; J8499; Q3014; 81001; 87086

== ENCOUNTER 2023-07-06 08:00 | Outpatient (CLI) | payer OTHER ==
[2023-07-06 23:30] LABS: BACTERIAL VAGINOSIS DNA POSITIVE (NEGATIVE); CANDIDA GLABRATA DNA NEGATIVE (NEGATIVE); CANDIDA GROUP DNA NEGATIVE (NEGATIVE); CANDIDA KRUSEI DNA NEGATIVE (NEGATIVE); TRICHOMONAS VAGINALIS DNA NEGATIVE (NEGATIVE)
== END 2023-07-06 23:59 | disposition home or self-care (01) ==
LOC: LAB.S 08:00
PROVIDERS: ATTEND Physician Assistant Medical
DX: N76.0 Acute vaginitis (principal); L29.8 Other pruritus
CPT/HCPCS: 36415; 81514; 86695; 86696

== ENCOUNTER 2023-07-06 13:33 | Outpatient (CLI) | payer OTHER ==
[2023-07-09 09:08] LABS: HSV 1 IGG TYPE SPEC <0.91 index (0.00-0.90); HSV 2 IGG TYPE SPEC 6.84 index (0.00-0.90)
== END 2023-07-06 13:34 | disposition home or self-care (01) ==
LOC: LAB.S 13:33
PROVIDERS: ATTEND Physician Assistant Medical
DX: N76.0 Acute vaginitis (principal); L29.8 Other pruritus
CPT/HCPCS: 36415; 86695; 86696

== ENCOUNTER 2023-07-12 20:03 | Outpatient (CLI) | payer OTHER | END 2023-07-12 20:04 | disposition EMS.NT | LOC: EMS 20:03 | DX: F10.129 Alcohol abuse with intoxication, unspecified (principal) ==

== ENCOUNTER 2023-08-26 20:01 | Emergency (ER) | payer OTHER ==
--- NOTE | 2023-08-26 20:04 | ED Physician Documentation ---
PD HPI MHE - Stated complaint Stated Complaint: MHE/LT ARM LAC - History obtained from History obtained from: Patient, EMS - Additional information Additional information: BIBA accompanied by PD. HPI from PD, EMS, as well as patient. Patient presents with self-inflicted left forearm lacerations. 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 During HPI patient says several times that she wants to . She admits to drinking alcohol tonight but is evasive when asked quantity. She is up-to-date on tetanus. Immediately after inflicting this injury to her left forearm, she informed her brother (who lives in the same household), who then called 911. Review of Systems Musculoskeletal: reports: Extremity pain Neurologic: denies: Focal weakness, Numbness Psychiatric: reports: Depressed, Suicidal PD PAST MEDICAL HISTORY - Past Medical History Cardiovascular: None Respiratory: None Neuro: None Endocrine/Autoimmune: None Psych: Depression, Anxiety - Past Surgical History Past Surgical History: Yes Ortho: ACL reconstruction HEENT: Tonsil/Adenoidectomy - Allergies Allergies/Adverse Reactions: Allergies Allergy/AdvReac Type Severity Reaction Status Date / Time No Known Drug Allergies Allergy Verified 08/26/23 20:07 - Social History Does the pt smoke?: No Smoking Status: Never smoker Does the pt drink ETOH?: Yes Does the pt have substance abuse?: No - Immunizations Immunizations are current?: Yes - POLST Patient has POLST: No PD ED PE NORMAL - Vitals Vital signs reviewed: Yes - General General: Alert and oriented X 3, Well developed/nourished, Other (tearful but cooperative) - Cardiac Cardiac: RRR, No murmur - Respiratory Respiratory: No respiratory distress, Clear bilaterally - Neuro Neuro: Alert and oriented X 3 Eye Opening: Spontaneous Motor: Obeys Commands Verbal: Oriented GCS Score: 15 PD ED PE EXPANDED - Extremities Extremities: Other (FROM left wrist, fingers (flexion, extension, abduction, adduction), LTS intact fingertips and thumb, brisk capillary refill in fingertips and strong radial pulse) SANDEEP UE/Hands Visual: 1 - laceration (7cm length laceration with trace active, non-pulsatile bleeding. large amount of underlying adipose tissue exposed but no neurovascular nor musculotendinous structures are visualized) - Psych Psych: Intoxicated / AOB, Suicidal, Tearful Results - Vitals Vitals: Vital Signs - 24 hr 08/26/23 08/26/23 08/27/23 20:07 21:20 04:12 Temperature 36.8 C 36.3 C L 37.1 C Heart Rate 110 H 110 H 80 Respiratory 18 16 16 Rate Blood Pressure 138/88 H 113/57 L 104/56 L O2 Saturation 100 97 97 Oxygen O2 Source Room air - Labs Labs: Laboratory Tests 08/26/23 08/26/23 08/26/23 20:20 20:20 20:20 WBC 9.5 RBC 4.22 Hgb 13.5 Hct 40.2 MCV 95.3 MCH 32.0 H MCHC 33.6 RDW 12.7 Plt Count 354 MPV 9.3 Neut # (Auto) 5.3 Lymph # (Auto) 3.7 H [place] # (Auto) 0.4 Eos # (Auto) 0.0 Baso # (Auto) 0.1 Absolute Nucleated RBC 0.00 Nucleated RBC % 0.0 Sodium 141 Potassium 3.9 Chloride 109 Carbon Dioxide 22 Anion Gap 10.0 BUN 13 Creatinine 1.0 Estimated GFR (MDRD) 68 L Glucose 91 Calcium 9.7 Magnesium 1.9 Total Bilirubin 0.2 AST 26 ALT 18 Alkaline Phosphatase 49 Total Creatine Kinase 294 H Total Protein 7.9 Albumin 4.6 Globulin 3.3 Albumin/Globulin Ratio 1.4 Lipase 37 TSH 1.54 Urine Color STRAW Urine Clarity CLEAR Urine pH 6.0 Ur Specific [place] <=1.005 Urine Protein NEGATIVE Urine Glucose (UA) NEGATIVE Urine Ketones NEGATIVE Urine Occult Blood NEGATIVE Urine Nitrite NEGATIVE Urine Bilirubin NEGATIVE Urine Urobilinogen 0.2 (NORMAL) Ur Leukocyte Esterase NEGATIVE Ur Microscopic Review NOT INDICATED Urine Culture Comments NOT INDICATED Urine HCG, Qual NEGATIVE Salicylates < 1.5 Urine Opiates Screen NEGATIVE Ur Buprenorphine Scrn NEGATIVE Ur Oxycodone Screen NEGATIVE Urine Methadone Screen NEGATIVE Acetaminophen < 0.1 Ur Barbiturates Screen NEGATIVE Ur Tricyclics Screen NEGATIVE Ur Phencyclidine Scrn NEGATIVE Ur Amphetamine Screen NEGATIVE U Methamphetamines Scrn NEGATIVE U Benzodiazepines Scrn NEGATIVE Urine Cocaine Screen NEGATIVE U Cannabinoids Screen NEGATIVE Ur Drug Screen Comment CUTOFF CONC BELOW: Ethyl Alcohol 246.2 SARS-CoV-2 (PCR) 08/26/23 08/27/23 08/27/23 20:25 04:10 05:32 WBC RBC Hgb Hct MCV MCH MCHC RDW Plt Count MPV Neut # (Auto) Lymph # (Auto) [place] # (Auto) Eos # (Auto) Baso # (Auto) Absolute Nucleated RBC Nucleated RBC % Sodium Potassium Chloride Carbon Dioxide Anion Gap BUN Creatinine Estimated GFR (MDRD) Glucose Calcium Magnesium Total Bilirubin AST ALT Alkaline Phosphatase Total Creatine Kinase Total Protein Albumin Globulin Albumin/Globulin Ratio Lipase TSH Urine Color Urine Clarity Urine pH Ur Specific [place] Urine Protein Urine Glucose (UA) Urine Ketones Urine Occult Blood Urine Nitrite Urine Bilirubin Urine Urobilinogen Ur Leukocyte Esterase Ur Microscopic Review Urine Culture Comments Urine HCG, Qual Salicylates Urine Opiates Screen Ur Buprenorphine Scrn Ur Oxycodone Screen Urine Methadone Screen Acetaminophen Ur Barbiturates Screen Ur Tricyclics Screen Ur Phencyclidine Scrn Ur Amphetamine Screen U Methamphetamines Scrn U Benzodiazepines Scrn Urine Cocaine Screen U Cannabinoids Screen Ur Drug Screen Comment Ethyl Alcohol 89.3 66.1 SARS-CoV-2 (PCR) NOT DETECTED Procedures - Laceration (location) Upper extremity left Ventral Length in cm: 7 Wound type: Linear, Into subcut fat, Clean Neurovascular status: Sensory intact, Motor intact, Vascular intact Tendon involvement: Tendon intact Anesthesia: Lidocaine 1% Wound preparation: Chlorhexadine, Irrigated copiously NS, Wound explored Skin layer closure: Welsh (18 yasmine) Other: Patient tolerated well, No complications, Neurovascular intact, Dressing applied, Tetanus UTD PD Medical Decision Making - ED course Complexity details: reviewed results, re-evaluated patient, considered differ ential, d/w patient ED course: At approximately 21:04, patient eloped from ED. Code CAT is activated. Patient was subsequently located in adjacent (EMS) parking lot and was convinced by ED staff and patient's brother to return to ED voluntarily. Held in ED for the remainder of my shift pending clinical sobriety and serum ethanol below 0.08. Towards the end of my shift her serum ethanol is 0.066. I then discussed with her the option of inpatient treatment for SI which she refuses. She is amenable to telepsychiatric consult which is pending at end of my shift. Care of patient is turned over to oncoming ED physician (Dr. Lange).
[2023-08-26] MEDS: lidocaine 1% 20 ML MDV SUBQ STA (20:20)
[2023-08-26] MEDS: IBUPROFEN 600 MG TABLET PO STA (20:22)
[2023-08-26 20:26] LABS: BASOPHILS # (AUTO) 0.1 10^3/uL (0.0-0.1); BASOPHILS % (AUTO) 0.5 %; EOSINOPHILS % (AUTO) 0.3 %; HCT - HEMATOCRIT 40.2 % (37.0-47.0); HGB - HEMOGLOBIN 13.5 g/dL (12.0-16.0); LYMPHOCYTES # (AUTO) 3.7 10^3/uL (1.5-3.5); LYMPHOCYTES % (AUTO) 38.6 %; MEAN CORPUSCULAR HGB CONC 33.6 g/dL (32.0-36.0); MEAN CORPUSCULAR VOLUME 95.3 fL (81.0-99.0); MEAN PLATELET VOLUME 9.3 fL (7.9-10.8); MONOCYTES # (AUTO) 0.4 10^3/uL (0.0-1.0); MONOCYTES % (AUTO) 4.5 %; NEUTROPHILS # (AUTO) 5.3 10^3/uL (1.5-6.6); NEUTROPHILS % (AUTO) 55.9 %; PLT - PLATELET COUNT 354 10^3/uL (130-450); RED BLOOD COUNT 4.22 10^6/uL (4.20-5.40); RED CELL DISTRIBUTION WIDTH 12.7 % (12.0-15.0); WHITE BLOOD COUNT 9.5 x10^3/uL (4.8-10.8)
[2023-08-26 20:34] LABS: HCG UR QUAL NEGATIVE
[2023-08-26 20:35] LABS: BILIRUBIN,URINE NEGATIVE (NEGATIVE); GLUCOSE, URINE (UA) NEGATIVE (NEGATIVE); KETONES,URINE (UA) NEGATIVE (NEGATIVE); LEUKOCYTE ESTERASE, URINE NEGATIVE (NEGATIVE); NITRITE,URINE NEGATIVE (NEGATIVE); OCCULT BLOOD,URINE NEGATIVE (NEGATIVE); PROTEIN,URINE NEGATIVE (NEGATIVE); UROBILINOGEN,URINE 0.2 (NORMAL) E.U./dL (NORMAL)
[2023-08-26 20:36] LABS: CLARITY,URINE CLEAR (CLEAR)
[2023-08-26 20:42] LABS: AMPHETAMINE SCREEN,URINE NEGATIVE (NEGATIVE); BARBITURATE SCREEN,UR NEGATIVE (NEGATIVE); BENZODIAZEPINES SCREEN, URINE NEGATIVE (NEGATIVE); BUPRENORPHINE SCREEN, URINE NEGATIVE (NEGATIVE); COCAINE SCREEN URINE NEGATIVE (NEGATIVE); METHADONE SCREEN, URINE NEGATIVE (NEGATIVE); METHAMPHETAMINES SCREEN, URINE NEGATIVE (NEGATIVE); OPIATE SCREEN, URINE NEGATIVE (NEGATIVE); OXYCODONE SCREEN, URINE NEGATIVE (NEGATIVE); THC CANNABINOID SCREEN, URINE NEGATIVE (NEGATIVE); TRICYCLIC ANTIDEPRESSANT,URINE NEGATIVE (NEGATIVE)
[2023-08-26 20:52] LABS: ALBUMIN 4.6 g/dL (3.2-5.5); ALBUMIN/GLOBULIN RATIO 1.4 (1.0-2.2); ALKALINE PHOSPHATASE 49 IU/L (42-121); ALT ALANINE AMINOTRANSFERASE 18 IU/L (10-60); AST ASPARTATE AMINOTRANSFERASE 26 IU/L (10-42); BILIRUBIN,TOTAL 0.2 mg/dL (0.2-1.0); BUN - BLOOD UREA NITROGEN 13 mg/dL (6-20); CALCIUM 9.7 mg/dL (8.5-10.3); CARBON DIOXIDE - CO2 22 mmol/L (21-32); CHLORIDE 109 mmol/L (101-111); CK- CREATINE KINASE 294 IU/L (30-223); ETOH - ETHANOL 246.2 mg/dL; GFR - MDRD 68 (>89); GLUCOSE 91 mg/dL (74-104); LIPASE 37 U/L (11-82); MAGNESIUM 1.9 mg/dL (1.7-2.3); POTASSIUM 3.9 mmol/L (3.5-4.5); SODIUM 141 mmol/L (135-145); TOTAL PROTEIN 7.9 g/dL (6.4-8.9)
[2023-08-26 20:57] LABS: THYROID STIMULATING HORMONE 1.54 uIU/mL (0.34-5.60)
[2023-08-26 21:21] LABS: ACETAMINOPHEN < 0.1 ug/mL; SALICYLATE < 1.5 mg/dL
[2023-08-26] MEDS: BACITRACIN ZINC OINT 1 PACKET TOP STA ×2 (21:30→21:54)
[2023-08-26] MEDS: ACETAMINOPHEN 325 MG TABLET PO STA (21:54)
--- NOTE | 2023-08-27 07:45 | TELEPSYCH PHYS NOTE ---
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 patient states she was feeling depressed and there was intent to kill herself. patient admits to drinking last night ./ HCG negative UDS Negative ETOH 246.2 now WNL (66.1) @ arrival Covid negative Chief Complaint: Pt states "I don't remember what happened. I am so embarrassed." History of Present Illness: 23 y/o female presents to ED for self-injurious behaviors. Patient reports she was drinking last night and does not remember what she did or "why she did it." Patient reports she does not want to and she is "so embarrassed" and "feels so bad" doing this. Patient reports she knows she had too much to drink and states she would never want to intentionally hurt herself and she "certainly does not want to .". Patient states reasons for living and states she loves her grandmother too much to do anything to herself that would "hurt her grandmother". Patient is calm, cooperative, and continues to state how embarrassed she is to be in the ER. Patient does have yasmine in her left forearm from cutting herself. Patient states she has hx of cutting herself but the last time was when she was about 12 y/o. Patient has no previous hx of psychiatric hospitalizations. Has hx of taking wellbutrin but states she has not been taking it because she can't afford it. Patient states she is not a risk to herself and feels safe going home. Suicide Ideation - Homicide Ideation - Self Harm: Denies SI, HI and current thoughts of self-harm Psychiatric History - Treatment History: denies Community Resources Accessed: ED Family Psych History/ History of suicide: Mother - bipolar Nutritional Status: No nutritional concerns - Medication & Allergies Allergies/Adverse Reactions: Allergies Allergy/AdvReac Type Severity Reaction Status Date / Time No Known Drug Allergies Allergy Verified 08/26/23 20:07 - Drug & Alcohol History Does patient have Drug/ETOH history or addictive behavior?: No Use: Uses substance without health or social issues: Cannabis (states does not use because of her job), Cocaine (states does not use anymore because of her job) Abuse: Recurrent use of substance despite neg consequences: NONE - Trauma Does the patient have a history of trauma, abuse, neglect or explotation?: No - Personal Information Does the patient have a history or present tendencies for violence?: None Services History: denies Does patient have any Legal Charges or Investigations?: No Environment & Living Situation - Social, Peer-Group (Note): At home Environment & Living Situation - Social, Peer-Group (Notes): Lives with grandmother and brother Marital Status - Family Circumstances: single Stressors - Financial Concerns: money Education: HS diploma 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 Collateral - Interdisciplinary Input: ED record - Medical History Psychiatric: reports: Depression, Anxiety Neurological: reports: None Cardiovascular: reports: None Respiratory: reports: None - Surgical History HEENT: reports: Tonsil/Adenoidectomy Orthopedic: reports: ACL reconstruction Childhood History: denies - Mental Status Exam Appearance and Attire: hospital attire, appears stated age Attitude and Behavior: calm, cooperative, friendly Speech: fluent Affect and Mood: mood - embarrassed affect - friendly, joking Association and Thought Process: linear and logical Thought Content: denies SI, HI Perception: denies AVH Sensorium, memory and orientation: alert, oriented Intellectual - Cognitive functioning: average Insight and Judgement: insight - fair judgment - fair Emotional and Behavioral Functioning: no agitation Ability to Self-Care: age appropriate - Personal Goals Short-term Goals: go home - Risk/Protective Factors Risk Factors: Trigger events leading to humiliation, shame and/or despair Protective Factors / Internal: Fear of or the actual act of killing self, Identifies reasons for living Protective Factors / External: Supportive social network of family or friends, Engaged in work or school - Plan Impression/Risk Assessment: 23 y/o old presents to ED for self-injurious behaviors to include cutting left forearm. Patient states she was drinking ETOH last night and does not remember cutting herself. Patient states she does not remember coming to the ED. Patient reports she does not want to and if she said that last night, she feels bad and is "very embarrassed" by her actions. Patient states numerous reasons for living and states she is not a risk to herself. Patient risk to self is low. Recommend outpatient level of care. Treatment - Therapy Recommendations: outpatient Pharmacological Recommendations: recommend wellbutrin XL 300 mg, one tablet daily in the morning. Patient has been taking this in the past but does not have a current prescription - Time Spent & Provider Location Telepsych consultation conducted via videoconferencing: Yes List names and roles of persons who participated in consult: patient and Mulu Thibodeaux APRN, PMHNP-BC Telepsych Provider Location: remote Time Spent (Minutes): 75
[2023-08-27] MEDS: ACETAMINOPHEN 500 MG TABLET PO STA (08:26)
[2023-08-27] MEDS: IBUPROFEN 600 MG TABLET PO STA (08:27)
[2023-08-27] MEDS: LIDOCAINE PATCH 5% TOP STA (08:27)
[2023-08-27] MEDS: FLUCONAZOLE 100 MG TABLET PO STA (09:22)
--- NOTE | 2023-08-27 10:22 | ED Physician Documentation ---
ED Addendum - Addendum Addendum: 08/27/23 10:20 The patient had a telepsychiatry interview and the recommendation from the psychiatrist is for outpatient therapy. There are multiple goal oriented aspects that makes him feel the patient is low risk for self-harm and the patient states she is not feeling suicidal at this time. She is actually not quite aware of her actions last night. It is recommended she avoid alcohol so there is not that disinhibition. She states she will avoid that. She is quite willing to resume the Wellbutrin and also asked for medication as needed for anxiety. She states trazodone in the past had made her feel tired for too much of the day. She will seek a primary care provider. I will give her the crisis line number. We do not have social work on-call today but we did give patient information packet that we have available for stress reduction etc. The patient will be given instructions for depression and wound care and follow- up numbers for primary health and [facility]. Disposition: The patient is discharged home in stable condition. Diagnoses: 1. Depression 2. Alcohol intoxication 3. Arm laceration, self-inflicted 4. Anxiety
[2023-08-27] MEDS: buPROPion XL 150 MG TABLET PO STA (10:34)
[2023-08-27] MEDS: LORazepam 1 MG TABLET PO STA (10:34)
[2023-08-27 11:01] VITALS: BP 135/77; O2SAT 100
== END 2023-08-27 11:10 | disposition home or self-care (01) ==
LOC: ED 20:01
DX: S51.812A Laceration without foreign body of left forearm, initial encounter (principal); X78.9XXA Intentional self-harm by unspecified sharp object, initial encounter; F32.A Depression, unspecified; F41.9 Anxiety disorder, unspecified; Z11.52 Encounter for screening for COVID-19; F10.129 Alcohol abuse with intoxication, unspecified; Y90.7 Blood alcohol level of 200-239 mg/100 ml
CPT/HCPCS: 12002; 36415; 80053; 80143; 80179; 80306; 81003; 81025; 82077; 82550; 83690; 83735; 84443; 85025; 87635; 99285; A9270; G0427; J8499; Q3014; 81001; 87086

== ENCOUNTER 2023-08-28 21:20 | Outpatient (CLI) | payer OTHER | END 2023-08-28 23:59 | disposition critical access hospital (66) | LOC: EMS 21:20 | DX: T42.4X2A Poisoning by benzodiazepines, intentional self-harm, initial encounter (principal); T51.92XA Toxic effect of unspecified alcohol, intentional self-harm, initial encounter; R45.1 Restlessness and agitation; R45.851 Suicidal ideations; Z78.1 Physical restraint status | CPT/HCPCS: A0425; A0429 ==

== ENCOUNTER 2023-08-28 21:38 | Emergency (ER) | payer OTHER ==
--- NOTE | 2023-08-28 22:05 | ED Physician Documentation ---
History of Present Illness - Stated complaint Stated Complaint: MHE - Additonal information Additional information: Patient 23-year-old female presents with intoxication, altered mentation and concern for overdose. Well-known to local PD and to our facility for longstanding alcohol abuse and chronic persistent suicidal ideation. Today police found her in an inebriated state. Recently received prescription for Twelve 0.5 mg alprazolam. The bottle was empty per EMS. Patient reports that "lorazepam is the only thing that makes me feel normal" and "I wish I was ". Denies coingestions but is minimally communicative at this time, actively fighting against restraints and making threatening statements both concerning her own safety as well as to staff members. PD PAST MEDICAL HISTORY - Past Medical History Cardiovascular: None Respiratory: None Neuro: None Endocrine/Autoimmune: None Psych: Depression, Anxiety - Past Surgical History Past Surgical History: Yes Ortho: ACL reconstruction HEENT: Tonsil/Adenoidectomy - Present Medications Home Medications: Ambulatory Orders Medication Instructions Recorded Confirmed ALPRAZolam [Xanax] 0.25 mg PO BID PRN #12 tablet 08/27/23 Lidocaine Patch 5% [Lidoderm Patch] 1 patch TOP DAILY PRN #10 patch 08/27/23 buPROPion [Wellbutrin Xl] 150 mg PO DAILY #30 tablet 08/27/23 - Allergies Allergies/Adverse Reactions: Allergies Allergy/AdvReac Type Severity Reaction Status Date / Time No Known Drug Allergies Allergy Verified 08/28/23 23:36 - Social History Does the pt smoke?: No Smoking Status: Never smoker Does the pt drink ETOH?: Yes Does the pt have substance abuse?: No - Immunizations Immunizations are current?: Yes - POLST Patient has POLST: No PD ED PE NORMAL - Vitals Vital signs reviewed: Yes - General General: Well developed/nourished, Other (Patient with slurred speech, fighting restraints) - HEENT HEENT: Atraumatic, PERRL, EOMI, Ears normal, Moist mucous membranes - Neck Neck: Supple, no meningeal sign, No bony TTP, No adenopathy, Thyroid normal - Cardiac Cardiac: RRR, No gallop - Respiratory Respiratory: No respiratory distress - Abdomen Abdomen: Normal bowel sounds - Female Female : Deferred - Rectal Rectal: Deferred - Derm Derm: Normal color - Extremities Extremities: No deformity - Neuro Neuro: Other (No focal or lateralizing neurologic deficits) - Psych Psych: Other (Patient endorses for active suicidal ideation, states "I wish I was ".) Results - Vitals Vitals: Vital Signs - 24 hr 08/29/23 08/29/23 08/29/23 03:00 03:30 05:00 Temperature Heart Rate 78 77 71 Respiratory 21 20 18 Rate Blood Pressure 102/57 L 99/58 L O2 Saturation 97 97 100 08/29/23 08/29/23 08/29/23 06:09 08:37 16:08 Temperature 36.4 C L Heart Rate 63 63 93 Respiratory 19 20 18 Rate Blood Pressure 90/50 L 91/56 L 121/78 O2 Saturation 97 97 100 Oxygen O2 Source Room air - EKG (time done) 4 EKG releavant findings:: EKG personally interpreted by author of this note. Relevant findings are: Sinus rhythm with 104 bpm. Normal axis. Normal LA, QRS, QTc intervals. Significant motion artifact throughout. - Labs Labs: Laboratory Tests 08/28/23 08/28/23 08/28/23 22:35 22:35 22:45 WBC 9.8 RBC 4.63 Hgb 14.4 Hct 45.1 MCV 97.4 MCH 31.1 H MCHC 31.9 L RDW 12.7 Plt Count 392 MPV 9.4 Neut # (Auto) 5.7 Lymph # (Auto) 3.5 [place] # (Auto) 0.4 Eos # (Auto) 0.1 Baso # (Auto) 0.0 Absolute Nucleated RBC 0.00 Nucleated RBC % 0.0 Sodium Potassium Chloride Carbon Dioxide Anion Gap BUN Creatinine Estimated GFR (MDRD) Glucose Calcium Magnesium Total Bilirubin AST ALT Alkaline Phosphatase Total Creatine Kinase Total Protein Albumin Globulin Albumin/Globulin Ratio Lipase TSH Urine Color COLORLESS Urine Clarity CLEAR Urine pH 6.0 Ur Specific [place] <=1.005 Urine Protein NEGATIVE Urine Glucose (UA) NEGATIVE Urine Ketones NEGATIVE Urine Occult Blood NEGATIVE Urine Nitrite NEGATIVE Urine Bilirubin NEGATIVE Urine Urobilinogen 0.2 (NORMAL) Ur Leukocyte Esterase NEGATIVE Ur Microscopic Review NOT INDICATED Urine Culture Comments NOT INDICATED Urine HCG, Qual NEGATIVE Nasal Adenovirus (PCR) NOT DETECTED Nasal B. parapertussis DNA (PCR) NOT DETECTED Nasal Coronavir 229E PCR NOT DETECTED Nasal Coronavir HKU1 PCR NOT DETECTED Nasal Coronavir NL63 PCR NOT DETECTED Nasal Coronavir OC43 PCR NOT DETECTED Nasal Enterovir/Rhinovir PCR NOT DETECTED Nasal Influenza B PCR NOT DETECTED Nasal Influenza A PCR NOT DETECTED Nasal Parainfluen 1 PCR NOT DETECTED Nasal Parainfluen 2 PCR NOT DETECTED Nasal Parainfluen 3 PCR NOT DETECTED Nasal Parainfluen 4 PCR NOT DETECTED Nasal RSV (PCR) NOT DETECTED Nasal B.pertussis DNA PCR NOT DETECTED Nasal C.pneumoniae (PCR) NOT DETECTED [place] Human Metapneumo PCR NOT DETECTED Nasal M.pneumoniae (PCR) NOT DETECTED Nasal SARS-CoV-2 (PCR) NOT DETECTED Salicylates Urine Opiates Screen NEGATIVE Ur Buprenorphine Scrn NEGATIVE Ur Oxycodone Screen NEGATIVE Urine Methadone Screen NEGATIVE Acetaminophen Ur Barbiturates Screen NEGATIVE Ur Tricyclics Screen NEGATIVE Ur Phencyclidine Scrn NEGATIVE Ur Amphetamine Screen NEGATIVE U Methamphetamines Scrn NEGATIVE U Benzodiazepines Scrn POSITIVE H Urine Cocaine Screen NEGATIVE U Cannabinoids Screen NEGATIVE Ur Drug Screen Comment CUTOFF CONC BELOW: Ethyl Alcohol 08/28/23 08/29/23 22:45 09:12 WBC RBC Hgb Hct MCV MCH MCHC RDW Plt Count MPV Neut # (Auto) Lymph # (Auto) [place] # (Auto) Eos # (Auto) Baso # (Auto) Absolute Nucleated RBC Nucleated RBC % Sodium 140 Potassium 4.0 Chloride 107 Carbon Dioxide 23 Anion Gap 10.0 BUN 8 Creatinine 0.9 Estimated GFR (MDRD) 77 L Glucose 84 Calcium 10.1 Magnesium 2.1 Total Bilirubin 0.3 AST 24 ALT 13 Alkaline Phosphatase 51 Total Creatine Kinase 196 Total Protein 8.2 Albumin 4.7 Globulin 3.5 Albumin/Globulin Ratio 1.3 Lipase 38 TSH 1.56 Urine Color Urine Clarity Urine pH Ur Specific [place] Urine Protein Urine Glucose (UA) Urine Ketones Urine Occult Blood Urine Nitrite Urine Bilirubin Urine Urobilinogen Ur Leukocyte Esterase Ur Microscopic Review Urine Culture Comments Urine HCG, Qual Nasal Adenovirus (PCR) Nasal B. parapertussis DNA (PCR) Nasal Coronavir 229E PCR Nasal Coronavir HKU1 PCR Nasal Coronavir NL63 PCR Nasal Coronavir OC43 PCR Nasal Enterovir/Rhinovir PCR Nasal Influenza B PCR Nasal Influenza A PCR Nasal Parainfluen 1 PCR Nasal Parainfluen 2 PCR Nasal Parainfluen 3 PCR Nasal Parainfluen 4 PCR Nasal RSV (PCR) Nasal B.pertussis DNA PCR Nasal C.pneumoniae (PCR) [place] Human Metapneumo PCR Nasal M.pneumoniae (PCR) Nasal SARS-CoV-2 (PCR) Salicylates < 1.5 Urine Opiates Screen Ur Buprenorphine Scrn Ur Oxycodone Screen Urine Methadone Screen Acetaminophen < 0.1 Ur Barbiturates Screen Ur Tricyclics Screen Ur Phencyclidine Scrn Ur Amphetamine Screen U Methamphetamines Scrn U Benzodiazepines Scrn Urine Cocaine Screen U Cannabinoids Screen Ur Drug Screen Comment Ethyl Alcohol 256.7 100.1 PD Medical Decision Making - ED course Complexity details: reviewed old records, reviewed results, re-evaluated patient, considered differential, d/w patient, d/w bilingual sales consultant ED course: Patient 23-year-old female presenting to the emergency department via police with suicidal ideation and suicide attempt. Reportedly found next to a bottle of alprazolam. Chart review demonstrates recent prescription twelve 0.25 mg alprazolam as well as 120 mg bupropion. Initial EKG nonacute. Patient combative on arrival to the emergency department required restraint and chemical calming in the form of R, Haldol, Benadryl. Blood alcohol significantly elevated here. No other severe electrolyte abnormalities. Vital bupropion identified as being in the patient's possessions and all pills accounted for. At this time awaiting clinical sobriety for evaluation by DEPORTATION OFFICER. Will be signing out to the oncoming physician, please see their documentation for further de tail. Departure - Departure Disposition: [facility] Psych Hosp/Unit DC/Xfer Clinical Impression: Overdose, Alcohol intoxication, Suicidal ideation Condition: Stable Forms: PCP List Discharge Date/Time: 08/29/23 19:45
--- NOTE | 2023-08-28 22:06 | ED Physician Documentation ---
Restraint [id number] - Immediate Situation Face to Face Evaluation Date: 08/28/23 Face to Face Evaluation Time: 22:05 Restraint Classification: Violent, physical hold - Patient's Reaction & Behaviors Safety: Non-compliant Verbal: Demanding, Swearing Harm: Potential harm to self, Potential harm to others Physical: Fighting restraints Other: Attempting removal of medically necessary device(s) - Behavioral Condition Attitude: Other Behavior: Uncooperative, Belligerent, Agitated Orientation: Disoriented to all Mood: Labile, Angry Behavioral Condition Comments: Patient screaming that she wishes she could have killed herself tonight. - Evaluation Current Medical Condition Relating to Need for Restraint: Alcohol intoxication, suicidal ideation Pertinent History/Illicit Drugs/Medications/Results: Longstanding history of alcohol abuse. Reported concern for consumption twelve 1.5 mg lorazepam. - Plan Need to Initiate/Renew Violent or Chemical Restraint: Patient thrashing against restraints, pulling at her IV, making threatening statements to staff and informing staff that she wishes she could kill herself.
[2023-08-28] MEDS: KETAMINE 500 MG/10 ML VIAL IVP STA (22:15)
[2023-08-28] MEDS: HALOPERIDOL 5 MG/ML VIAL IVP STA (22:38)
[2023-08-28] MEDS: diphenhydrAMINE INJ 50 MG/ML VIAL IVP STA (22:39)
--- NOTE | 2023-08-28 22:45 | ED Physician Documentation ---
Restraint [id number] - Immediate Situation Face to Face Evaluation Date: 08/28/23 Face to Face Evaluation Time: 22:44 Restraint Classification: Violent, chemical - Patient's Reaction & Behaviors Safety: Non-compliant Verbal: Demanding, Screaming/Yelling, Swearing Harm: Potential harm to self, Potential harm to others, Verbalizes intent to harm Physical: Aggressive behavior, Fighting restraints Other: Attempting removal of medically necessary device(s) - Behavioral Condition Attitude: Indifferent Behavior: Belligerent, Agitated Orientation: Disoriented to all Mood: Labile, Angry - Evaluation Pertinent History/Illicit Drugs/Medications/Results: Longstanding history of alcohol abuse. Reported concern for consumption twelve 1.5 mg lorazepam. - Plan Need to Initiate/Renew Violent or Chemical Restraint: Will continue until clinically sober and otherwise no longer demonstrating harm to self or others.
[2023-08-28 22:51] LABS: BASOPHILS % (AUTO) 0.4 %; EOSINOPHILS # (AUTO) 0.1 10^3/uL (0.0-0.7); EOSINOPHILS % (AUTO) 0.7 %; HCT - HEMATOCRIT 45.1 % (37.0-47.0); HGB - HEMOGLOBIN 14.4 g/dL (12.0-16.0); LYMPHOCYTES # (AUTO) 3.5 10^3/uL (1.5-3.5); LYMPHOCYTES % (AUTO) 35.7 %; MEAN CORPUSCULAR HEMOGLOBIN 31.1 pg (27.0-31.0); MEAN CORPUSCULAR HGB CONC 31.9 g/dL (32.0-36.0); MEAN CORPUSCULAR VOLUME 97.4 fL (81.0-99.0); MEAN PLATELET VOLUME 9.4 fL (7.9-10.8); MONOCYTES # (AUTO) 0.4 10^3/uL (0.0-1.0); MONOCYTES % (AUTO) 4.1 %; NEUTROPHILS # (AUTO) 5.7 10^3/uL (1.5-6.6); NEUTROPHILS % (AUTO) 58.8 %; PLT - PLATELET COUNT 392 10^3/uL (130-450); RED BLOOD COUNT 4.63 10^6/uL (4.20-5.40); RED CELL DISTRIBUTION WIDTH 12.7 % (12.0-15.0); WHITE BLOOD COUNT 9.8 x10^3/uL (4.8-10.8)
[2023-08-28 23:00] LABS: BILIRUBIN,URINE NEGATIVE (NEGATIVE); GLUCOSE, URINE (UA) NEGATIVE (NEGATIVE); KETONES,URINE (UA) NEGATIVE (NEGATIVE); LEUKOCYTE ESTERASE, URINE NEGATIVE (NEGATIVE); NITRITE,URINE NEGATIVE (NEGATIVE); OCCULT BLOOD,URINE NEGATIVE (NEGATIVE); PROTEIN,URINE NEGATIVE (NEGATIVE); UROBILINOGEN,URINE 0.2 (NORMAL) E.U./dL (NORMAL)
[2023-08-28 23:03] LABS: CLARITY,URINE CLEAR (CLEAR); HCG UR QUAL NEGATIVE
[2023-08-28 23:10] LABS: AMPHETAMINE SCREEN,URINE NEGATIVE (NEGATIVE); BARBITURATE SCREEN,UR NEGATIVE (NEGATIVE); BENZODIAZEPINES SCREEN, URINE POSITIVE (NEGATIVE); BUPRENORPHINE SCREEN, URINE NEGATIVE (NEGATIVE); COCAINE SCREEN URINE NEGATIVE (NEGATIVE); METHADONE SCREEN, URINE NEGATIVE (NEGATIVE); METHAMPHETAMINES SCREEN, URINE NEGATIVE (NEGATIVE); OPIATE SCREEN, URINE NEGATIVE (NEGATIVE); OXYCODONE SCREEN, URINE NEGATIVE (NEGATIVE); THC CANNABINOID SCREEN, URINE NEGATIVE (NEGATIVE); TRICYCLIC ANTIDEPRESSANT,URINE NEGATIVE (NEGATIVE)
[2023-08-28 23:12] LABS: ALBUMIN 4.7 g/dL (3.2-5.5); ALBUMIN/GLOBULIN RATIO 1.3 (1.0-2.2); ALKALINE PHOSPHATASE 51 IU/L (42-121); ALT ALANINE AMINOTRANSFERASE 13 IU/L (10-60); AST ASPARTATE AMINOTRANSFERASE 24 IU/L (10-42); BILIRUBIN,TOTAL 0.3 mg/dL (0.2-1.0); BUN - BLOOD UREA NITROGEN 8 mg/dL (6-20); CALCIUM 10.1 mg/dL (8.5-10.3); CARBON DIOXIDE - CO2 23 mmol/L (21-32); CHLORIDE 107 mmol/L (101-111); CK- CREATINE KINASE 196 IU/L (30-223); CREATININE 0.9 mg/dL (0.6-1.3); ETOH - ETHANOL 256.7 mg/dL; GFR - MDRD 77 (>89); GLUCOSE 84 mg/dL (74-104); LIPASE 38 U/L (11-82); MAGNESIUM 2.1 mg/dL (1.7-2.3); SODIUM 140 mmol/L (135-145); TOTAL PROTEIN 8.2 g/dL (6.4-8.9)
[2023-08-28 23:14] LABS: ACETAMINOPHEN < 0.1 ug/mL
[2023-08-28 23:19] LABS: SALICYLATE < 1.5 mg/dL
[2023-08-28 23:21] LABS: THYROID STIMULATING HORMONE 1.56 uIU/mL (0.34-5.60)
[2023-08-29 01:23] LABS: B. PARAPERTUSSIS- RESP PCR PAN NOT DETECTED; B. PERTUSSIS- RESP PCR PANEL NOT DETECTED; C. PNEUMONIAE- RESP PCR PANEL NOT DETECTED; CORONAVIRUS 229E-RESP PCR NOT DETECTED; CORONAVIRUS HKU1-RESP PCR NOT DETECTED; CORONAVIRUS NL63-RESP PCR NOT DETECTED; CORONAVIRUS OC43-RESP PCR NOT DETECTED; HUMAN METAPNEUMOVIRUS NOT DETECTED; INFLUENZA A- RESP PCR PANEL NOT DETECTED; INFLUENZA B - RESP PCR PANEL NOT DETECTED; M. PNEUMONIAE- RESP PCR PANEL NOT DETECTED; PARAINFLUENZA VIRUS 1 NOT DETECTED; PARAINFLUENZA VIRUS 2 NOT DETECTED; PARAINFLUENZA VIRUS 3 NOT DETECTED; PARAINFLUENZA VIRUS 4 NOT DETECTED; RHINOVIRUS/ENTEROVIRUS NOT DETECTED; RSV- RESP PCR PANEL NOT DETECTED; SARS-CoV-2 -RESP PCR PANEL NOT DETECTED
--- NOTE | 2023-08-29 09:03 | ED Physician Documentation ---
ED Addendum - Addendum Addendum: 08/29/23 Patient signed out to me at shift change from overnight physician. ETOH level at 2245 was 256. Would expect that to be below 100 this morning. Patient is medically cleared and we will dispatch DCR for evaluation. 08/29/23 11:05 Patient has been evaluated by the DCR and will be detained. Looking for placement. Patient is aware of this and is currently cooperative. 08/29/23 13:00 Patient has been accepted to [facility]. She is aware of plan for transfer. Awaiting transfer in signout at shift change. Departure - Departure Disposition: [facility]/Unit DC/Xfer Clinical Impression: Suicidal ideation Overdose Qualifiers: Encounter type: initial encounter Injury intent: intentional self-harm Qualified Code(s): T50.902A - Poisoning by unspecified drugs, medicaments and biological substances, intentional self-harm, initial encounter Alcohol intoxication Qualifiers: Complication of substance-induced condition: with unspecified complication Qualified Code(s): F10.929 - Alcohol use, unspecified with intoxication, unspecified Condition: Stable Forms: PCP List
[2023-08-29 16:11] VITALS: BP 121/78; O2SAT 100
[2023-08-29] MEDS: ALPRAZolam 0.25 MG TABLET PO STA (19:17)
== END 2023-08-29 19:45 ==
LOC: EDUNIT# → ED 21:38
DX: F10.129 Alcohol abuse with intoxication, unspecified (principal); Y90.8 Blood alcohol level of 240 mg/100 ml or more; R45.851 Suicidal ideations; T50.902A Poisoning by unspecified drugs, medicaments and biological substances, intentional self-harm, initial encounter; F32.A Depression, unspecified; F41.9 Anxiety disorder, unspecified; Z79.899 Other long term (current) drug therapy
CPT/HCPCS: 36415; 80053; 80143; 80179; 80306; 81003; 81025; 82077; 82550; 83690; 83735; 84443; 85025; 87633; 93005; 96374; 96375; 99284; 99285; A9270; J1200; 81001; 87086

== ENCOUNTER 2023-10-11 08:03 | Outpatient (CLI) | payer MEDICAID ==
[2023-10-11 11:46] LABS: BASOPHILS % (AUTO) 0.5 %; EOSINOPHILS # (AUTO) 0.1 10^3/uL (0.0-0.7); EOSINOPHILS % (AUTO) 0.8 %; HCT - HEMATOCRIT 42.2 % (37.0-47.0); HGB - HEMOGLOBIN 13.4 g/dL (12.0-16.0); LYMPHOCYTES # (AUTO) 1.9 10^3/uL (1.5-3.5); LYMPHOCYTES % (AUTO) 26.1 %; MEAN CORPUSCULAR HEMOGLOBIN 30.4 pg (27.0-31.0); MEAN CORPUSCULAR HGB CONC 31.8 g/dL (32.0-36.0); MEAN CORPUSCULAR VOLUME 95.7 fL (81.0-99.0); MEAN PLATELET VOLUME 10.1 fL (7.9-10.8); MONOCYTES # (AUTO) 0.4 10^3/uL (0.0-1.0); MONOCYTES % (AUTO) 5.7 %; NEUTROPHILS % (AUTO) 66.6 %; PLT - PLATELET COUNT 332 10^3/uL (130-450); RED BLOOD COUNT 4.41 10^6/uL (4.20-5.40); RED CELL DISTRIBUTION WIDTH 12.5 % (12.0-15.0); WHITE BLOOD COUNT 7.4 x10^3/uL (4.8-10.8)
[2023-10-11 12:04] LABS: ALBUMIN 4.6 g/dL (3.2-5.5); ALBUMIN/GLOBULIN RATIO 1.4 (1.0-2.2); ALKALINE PHOSPHATASE 50 IU/L (42-121); ALT ALANINE AMINOTRANSFERASE 21 IU/L (10-60); AST ASPARTATE AMINOTRANSFERASE 27 IU/L (10-42); BILIRUBIN,TOTAL 0.4 mg/dL (0.2-1.0); BUN - BLOOD UREA NITROGEN 15 mg/dL (6-20); CALCIUM 9.8 mg/dL (8.5-10.3); CARBON DIOXIDE - CO2 26 mmol/L (21-32); CHLORIDE 105 mmol/L (101-111); CHOL/HDL RATIO 2.3 (<4.4); CHOLESTEROL 173 mg/dL; CREATININE 1.1 mg/dL (0.6-1.3); GFR - MDRD 61 (>89); GLUCOSE 97 mg/dL (74-104); HDL CHOLESTEROL 75 mg/dL; LDL CHOLESTEROL,CALCULATED 88 mg/dL; LDL/HDL RATIO 1.2 (<4.4); POTASSIUM 4.3 mmol/L (3.5-4.5); SODIUM 135 mmol/L (135-145); TOTAL PROTEIN 7.8 g/dL (6.4-8.9); TRIGLYCERIDES 51 mg/dL (48-352); VLDL CHOLESTEROL 10 mg/dL
[2023-10-11 12:10] LABS: BILIRUBIN,URINE NEGATIVE (NEGATIVE); GLUCOSE, URINE (UA) NEGATIVE (NEGATIVE); KETONES,URINE (UA) NEGATIVE (NEGATIVE); LEUKOCYTE ESTERASE, URINE NEGATIVE (NEGATIVE); NITRITE,URINE NEGATIVE (NEGATIVE); OCCULT BLOOD,URINE NEGATIVE (NEGATIVE); PROTEIN,URINE NEGATIVE (NEGATIVE); UROBILINOGEN,URINE 0.2 (NORMAL) E.U./dL (NORMAL)
[2023-10-11 12:17] LABS: CLARITY,URINE CLOUDY (CLEAR)
[2023-10-11 12:31] LABS: AMORPHOUS SEDIMENT,UR Marked /LPF; BACTERIA,URINE Rare /HPF (None Seen); RBC,URINE None Seen /HPF (0-5); SQUAMOUS EPITHELIAL CELL,UR FEW Squamous (<= Few); WBC,URINE 0-3 /HPF (0-5)
[2023-10-11 12:35] LABS: ESTIMATED AVERAGE GLUCOSE 94 mg/dL (70-100); HEMOGLOBIN A1c% 4.9 % (4.27-6.07)
[2023-10-11 14:29] LABS: CHLAMYDIA TRACHOMATIS DNA NEGATIVE (NEGATIVE); NEISSERIA GONORRHOEAE DNA NEGATIVE (NEGATIVE); TRICHOMONAS VAGINALIS DNA NEGATIVE (NEGATIVE)
== END 2023-10-11 08:04 | disposition home or self-care (01) ==
LOC: LAB.N 08:03
DX: N76.0 Acute vaginitis (principal); R53.83 Other fatigue; R63.5 Abnormal weight gain
CPT/HCPCS: 36415; 80050; 80061; 81001; 83036; 83721; 87086; 87491; 87591; 87661

== ENCOUNTER 2023-12-13 21:20 | Outpatient (CLI) | payer OTHER, MEDICAID | END 2023-12-13 21:21 | disposition critical access hospital (66) | LOC: EMS 21:20 | DX: R45.851 Suicidal ideations (principal) | CPT/HCPCS: A0425; A0427 ==

== ENCOUNTER 2023-12-13 21:26 | Emergency (ER) | payer MEDICAID, OTHER ==
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
[2023-12-13 21:47] LABS: BASOPHILS # (AUTO) 0.1 10^3/uL (0.0-0.1); BASOPHILS % (AUTO) 0.4 %; EOSINOPHILS # (AUTO) 0.1 10^3/uL (0.0-0.7); EOSINOPHILS % (AUTO) 0.4 %; HCT - HEMATOCRIT 39.9 % (37.0-47.0); HGB - HEMOGLOBIN 13.1 g/dL (12.0-16.0); LYMPHOCYTES # (AUTO) 2.7 10^3/uL (1.5-3.5); LYMPHOCYTES % (AUTO) 18.7 %; MEAN CORPUSCULAR HEMOGLOBIN 30.1 pg (27.0-31.0); MEAN CORPUSCULAR HGB CONC 32.8 g/dL (32.0-36.0); MEAN CORPUSCULAR VOLUME 91.7 fL (81.0-99.0); MEAN PLATELET VOLUME 9.9 fL (7.9-10.8); MONOCYTES # (AUTO) 0.6 10^3/uL (0.0-1.0); MONOCYTES % (AUTO) 4.4 %; NEUTROPHILS # (AUTO) 10.8 10^3/uL (1.5-6.6); NEUTROPHILS % (AUTO) 75.9 %; PLT - PLATELET COUNT 283 10^3/uL (130-450); RED BLOOD COUNT 4.35 10^6/uL (4.20-5.40); RED CELL DISTRIBUTION WIDTH 12.7 % (12.0-15.0); WHITE BLOOD COUNT 14.2 x10^3/uL (4.8-10.8)
[2023-12-13 22:11] LABS: HCG,QUALITATIVE BLOOD NEGATIVE
[2023-12-13 22:53] LABS: ALBUMIN 4.7 g/dL (3.2-5.5); CALCIUM 9.6 mg/dL (8.5-10.3); CARBON DIOXIDE - CO2 18 mmol/L (21-32); CHLORIDE 109 mmol/L (101-111); POTASSIUM 3.6 mmol/L (3.5-4.5); SODIUM 142 mmol/L (135-145)
[2023-12-13 22:54] LABS: BILIRUBIN,TOTAL 0.3 mg/dL (0.2-1.0); MAGNESIUM 1.9 mg/dL (1.7-2.3)
[2023-12-13 23:00] LABS: ACETAMINOPHEN 0.2 ug/mL; ALBUMIN/GLOBULIN RATIO 1.5 (1.0-2.2); ALKALINE PHOSPHATASE 54 IU/L (42-121); ALT ALANINE AMINOTRANSFERASE 32 IU/L (10-60); AST ASPARTATE AMINOTRANSFERASE 81 IU/L (10-42); BUN - BLOOD UREA NITROGEN 23 mg/dL (6-20); GFR - MDRD 68 (>89); GLUCOSE 79 mg/dL (74-104); LIPASE 33 U/L (11-82); SALICYLATE < 1.5 mg/dL; THYROID STIMULATING HORMONE 2.54 uIU/mL (0.34-5.60); TOTAL PROTEIN 7.8 g/dL (6.4-8.9)
[2023-12-13 23:21] LABS: CK- CREATINE KINASE 4032 IU/L (30-223)
[2023-12-14 00:41] VITALS: BP 121/88; O2SAT 99
== END 2023-12-14 00:36 | disposition home or self-care (01) ==
LOC: EDUNIT# → EDBD → ED 21:26
DX: F10.929 Alcohol use, unspecified with intoxication, unspecified (principal); F91.9 Conduct disorder, unspecified
CPT/HCPCS: 36415; 80053; 80143; 80179; 82077; 82550; 83690; 83735; 84443; 84703; 85025; 99283; 99285

== ENCOUNTER 2023-12-22 08:00 | Outpatient (CLI) | payer MEDICAID, OTHER ==
[2023-12-22 20:50] LABS: BACTERIAL VAGINOSIS DNA POSITIVE (NEGATIVE); CANDIDA GLABRATA DNA NEGATIVE (NEGATIVE); CANDIDA GROUP DNA NEGATIVE (NEGATIVE); CANDIDA KRUSEI DNA NEGATIVE (NEGATIVE); TRICHOMONAS VAGINALIS DNA NEGATIVE (NEGATIVE)
== END 2023-12-22 23:59 | disposition home or self-care (01) ==
LOC: LAB.WC 08:00
PROVIDERS: ATTEND Obstetrics & Gynecology
DX: N89.8 Other specified noninflammatory disorders of vagina (principal)
CPT/HCPCS: 81514

== ENCOUNTER 2024-01-04 14:21 | Outpatient (CLI) | payer MEDICAID, OTHER ==
--- NOTE | 2024-01-04 17:09 | MRI Report ---
Knee LT WO CLINICAL INFORMATION: 23 years of age, Female, L KNEE DERANGEMENT. COMPARISON: None Technique: Multisequence, multiplanar MRI of the left knee was performed without intravenous contrast . FINDINGS: Menisci: In the medial meniscus, there is full-thickness radial tear of the posterior horn and root j unction (series 3, image 22). There is mild extrusion of the medial meniscus body. In addition, there is a mildly complex tear of the meniscus body with a predominantly oblique component. In the lateral meniscus, there is a vertical tear extending from the posterior root, to the posterior horn. No extr usion of the lateral meniscus body. Cruciate ligaments: Full-thickness tear of the ACL. The PCL is intact. MCL/LCL: The MCL is unremarkable. The biceps femoris tendon is unremarkable. The fibular collateral ligament is unremarkable. The iliotibial band is intact. The popliteus muscle and tendon also appear intact. Extensor mechanism: The quadricep tendon is unremarkable. The patella tendon is unremarkable. Patellofemoral joint: Alignment within the patellofemoral joint is normal. The patellofemoral ligame nts are intact. Cartilage and bone marrow signal within the patella and femoral trochlea are normal. Cartilage and bone: In the medial compartment, there is mild chondral thinning in the weightbearing p ortion of the femoral condyle and the tibial plateau. The cartilage in the lateral compartment is wel l-maintained. There is mild marrow edema of the weightbearing portion of the medial femoral condyle, without fracture line, likely representing mild marrow contusion. Mild marrow edema at the tibial memo nence, favoring reactive. There is mild anterior subluxation of the tibial plateau with respect to th e femoral condyle, likely secondary to ACL tear. Miscellaneous: Small knee effusion. Small popliteal cyst. No intra-articular bodies are identified. N ormal muscle signal intensity and morphology. No vascular anomaly. IMPRESSION: 1.Tear of the medial and lateral meniscus. 2.Full-thickness tear of the ACL. 3.Mild chondrosis of the medial compartment. 4.Mild marrow contusion of the weightbearing portion of the medial femoral condyle. Reviewed by: Sunita Bautista MD on 01/04/2024 5:07 PM PDT Approved by: Sunita Bautista MD on 01/04/2024 5:07 PM PDT Station ID: [id number]
== END 2024-01-04 14:22 | disposition home or self-care (01) ==
LOC: DI 14:21
PROVIDERS: ATTEND Physician Assistant Surgical
DX: S83.242A Other tear of medial meniscus, current injury, left knee, initial encounter (principal); S83.282A Other tear of lateral meniscus, current injury, left knee, initial encounter; S83.512A Sprain of anterior cruciate ligament of left knee, initial encounter; M11.262 Other chondrocalcinosis, left knee; S70.12XA Contusion of left thigh, initial encounter

== ENCOUNTER 2024-01-05 02:48 | Emergency (ER) | payer MEDICAID ==
[2024-01-05 03:19] LABS: BILIRUBIN,URINE NEGATIVE (NEGATIVE); GLUCOSE, URINE (UA) NEGATIVE (NEGATIVE); KETONES,URINE (UA) NEGATIVE (NEGATIVE); LEUKOCYTE ESTERASE, URINE NEGATIVE (NEGATIVE); NITRITE,URINE NEGATIVE (NEGATIVE); OCCULT BLOOD,URINE NEGATIVE (NEGATIVE); PROTEIN,URINE NEGATIVE (NEGATIVE); UROBILINOGEN,URINE 0.2 (NORMAL) E.U./dL (NORMAL)
[2024-01-05 03:22] LABS: CLARITY,URINE CLEAR (CLEAR)
[2024-01-05 03:24] LABS: HCG UR QUAL NEGATIVE
[2024-01-05 03:31] LABS: BASOPHILS % (AUTO) 0.4 %; EOSINOPHILS # (AUTO) 0.1 10^3/uL (0.0-0.7); EOSINOPHILS % (AUTO) 1.3 %; HCT - HEMATOCRIT 40.8 % (37.0-47.0); HGB - HEMOGLOBIN 13.3 g/dL (12.0-16.0); LYMPHOCYTES # (AUTO) 3.3 10^3/uL (1.5-3.5); LYMPHOCYTES % (AUTO) 34.5 %; MEAN CORPUSCULAR HEMOGLOBIN 30.4 pg (27.0-31.0); MEAN CORPUSCULAR HGB CONC 32.6 g/dL (32.0-36.0); MEAN CORPUSCULAR VOLUME 93.4 fL (81.0-99.0); MEAN PLATELET VOLUME 9.8 fL (7.9-10.8); MONOCYTES # (AUTO) 0.6 10^3/uL (0.0-1.0); NEUTROPHILS # (AUTO) 5.4 10^3/uL (1.5-6.6); NEUTROPHILS % (AUTO) 57.6 %; PLT - PLATELET COUNT 310 10^3/uL (130-450); RED BLOOD COUNT 4.37 10^6/uL (4.20-5.40); RED CELL DISTRIBUTION WIDTH 13.7 % (12.0-15.0); WHITE BLOOD COUNT 9.4 x10^3/uL (4.8-10.8)
[2024-01-05 03:48] LABS: ALBUMIN 4.5 g/dL (3.2-5.5); ALBUMIN/GLOBULIN RATIO 1.5 (1.0-2.2); BILIRUBIN,TOTAL 0.4 mg/dL (0.2-1.0); CALCIUM 9.4 mg/dL (8.5-10.3); CREATININE 0.9 mg/dL (0.6-1.3); POTASSIUM 3.6 mmol/L (3.5-4.5); TOTAL PROTEIN 7.6 g/dL (6.4-8.9)
--- NOTE | 2024-01-05 03:50 | ED Physician Documentation ---
PD HPI ABD PAIN - Stated complaint Stated Complaint: ABD PX - Chief complaint Chief Complaint: Abd Pain - History obtained from History obtained from: Patient - History of Present Illness Timing - onset: Yesterday Timing - duration: Hours Timing - details: Abrupt onset, Still present Quality: Cramping, Sharp, Pain Location: RUQ, Epigastric Improved by: Laying still Worsened by: Breathing, Position, Palpation Associated symptoms: Nausea. No: Vomiting Similar symptoms before: Has not had sx before Recently seen: Not recently seen - Additional information Additional information: 23-year-old Patricia Florence presents to the emergency department with chief complaint of epigastric pain. She states it is a burning-like sensation in the midepigastric region and to the right upper quadrant. She initially tells me she has not had this pain previously. Later in the history he tells me that she has had a problem with this pain repeatedly. She last remembers eating ice cream.She denies any use currently of alcohol or ibuprofen. Review of Systems Constitutional: denies: Fever Ears: denies: Ear pain Nose: denies: Congestion Throat: denies: Sore throat Cardiac: denies: Chest pain / pressure, Palpitations Respiratory: denies: Dyspnea, Cough GI: reports: Abdominal Pain, Nausea : denies: Dysuria, Frequency Skin: denies: Rash Musculoskeletal: denies: Neck pain, Back pain, Extremity pain PD PAST MEDICAL HISTORY - Past Medical History Past Medical History: Yes Cardiovascular: None Respiratory: None Neuro: None Endocrine/Autoimmune: None Psych: Depression, Anxiety - Past Surgical History Past Surgical History: Yes Ortho: ACL reconstruction HEENT: Tonsil/Adenoidectomy - Present Medications Home Medications: Ambulatory Orders Medication Instructions Recorded Confirmed No Known Home Medications 01/05/24 01/05/24 - Allergies Allergies/Adverse Reactions: Allergies Allergy/AdvReac Type Severity Reaction Status Date / Time No Known Drug Allergies Allergy Verified 01/05/24 03:07 - Social History Does the pt smoke?: No Smoking Status: Never smoker Does the pt drink ETOH?: Yes Does the pt have substance abuse?: No - Immunizations Immunizations are current?: Yes - POLST Patient has POLST: No PD ED PE NORMAL - Vitals Vital signs reviewed: Yes (Normal) - General General: Alert and oriented X 3, No acute distress, Well developed/nourished, Other (A broad smile on the patient's face and a friendly demeanor without evidence of pain in the patient's facial expression.) - HEENT HEENT: Atraumatic, PERRL, EOMI - Neck Neck: Supple, no meningeal sign, No bony TTP - Cardiac Cardiac: RRR, No murmur - Respiratory Respiratory: No respiratory distress, Clear bilaterally - Abdomen Abdomen: Normal bowel sounds, Soft, Non distended, No organomegaly, Other (There is specifically right upper quadrant pain to palpation which does arrest respiration. Mild epigastric tenderness.) - Back Back: No CVA TTP, No spinal TTP - Derm Derm: Normal color, Warm and dry, No rash - Extremities Extremities: No deformity, No edema - Neuro Neuro: Alert and oriented X 3, oim consultant 2-12 intact, No motor deficit, No sensory deficit, Normal speech Eye Opening: Spontaneous Motor: Obeys Commands Verbal: Oriented GCS Score: 15 - Psych Psych: Normal mood, Normal affect Results - Vitals Vitals: Vital Signs - 24 hr 01/05/24 03:02 Temperature 36.7 C Heart Rate 78 Respiratory 16 Rate Blood Pressure 109/62 O2 Saturation 98 Oxygen O2 Source Room air - Labs Labs: Laboratory Tests 01/05/24 01/05/24 01/05/24 03:12 03:12 03:22 WBC 9.4 RBC 4.37 Hgb 13.3 Hct 40.8 MCV 93.4 MCH 30.4 MCHC 32.6 RDW 13.7 Plt Count 310 MPV 9.8 Neut # (Auto) 5.4 Lymph # (Auto) 3.3 [place] # (Auto) 0.6 Eos # (Auto) 0.1 Baso # (Auto) 0.0 Absolute Nucleated RBC 0.00 Nucleated RBC % 0.0 Sodium Potassium Chloride Carbon Dioxide Anion Gap BUN Creatinine Estimated GFR (MDRD) Glucose Calcium Total Bilirubin AST ALT Alkaline Phosphatase Total Protein Albumin Globulin Albumin/Globulin Ratio Lipase Urine Color YELLOW Urine Clarity CLEAR Urine pH 6.0 Ur Specific [place] >=1.030 H Urine Protein NEGATIVE Urine Glucose (UA) NEGATIVE Urine Ketones NEGATIVE Urine Occult Blood NEGATIVE Urine Nitrite NEGATIVE Urine Bilirubin NEGATIVE Urine Urobilinogen 0.2 (NORMAL) Ur Leukocyte Esterase NEGATIVE Ur Microscopic Review NOT INDICATED Urine Culture Comments NOT INDICATED Urine HCG, Qual NEGATIVE 01/05/24 03:22 WBC RBC Hgb Hct MCV MCH MCHC RDW Plt Count MPV Neut # (Auto) Lymph # (Auto) [place] # (Auto) Eos # (Auto) Baso # (Auto) Absolute Nucleated RBC Nucleated RBC % Sodium 136 Potassium 3.6 Chloride 106 Carbon Dioxide 26 Anion Gap 4.0 L BUN 12 Creatinine 0.9 Estimated GFR (MDRD) 77 L Glucose 94 Calcium 9.4 Total Bilirubin 0.4 AST 32 ALT 19 Alkaline Phosphatase 43 Total Protein 7.6 Albumin 4.5 Globulin 3.1 Albumin/Globulin Ratio 1.5 Lipase 33 Urine Color Urine Clarity Urine pH Ur Specific [place] Urine Protein Urine Glucose (UA) Urine Ketones Urine Occult Blood Urine Nitrite Urine Bilirubin Urine Urobilinogen Ur Leukocyte Esterase Ur Microscopic Review Urine Culture Comments Urine HCG, Qual Procedures - Bedside sono Bedside sono by EMP: With use of POCUS the right upper quadrant is imaged the gallbladder is generous in size and sonographically tender. There does appear to be more than 1 stone in the gallbladder. No pericholecystic fluid. PD Medical Decision Making - ED course Complexity details: reviewed results, re-evaluated patient, considered differential, d/w patient, d/w family Reviewed Lab Results: We reviewed a complete blood count showing a normal white blood cell count normal hemoglobin hematocrit and platelets chemistries show normal electrolytes normal kidney and liver function normal lipase.These laboratory tests are benign and do not contribute to any specific diagnosis. They are reassuring for absence of common duct stone or cholecystitis. Departure - Departure Disposition: 01 Home, Self Care Clinical Impression: Cholelithiasis Qualifiers: Cholelithiasis location: gallbladder Cholecystitis presence: without cholecystitis Biliary obstruction: with biliary obstruction Qualified Code(s): K80.21 - Calculus of gallbladder without cholecystitis with obstruction Condition: Stable Instructions: ED Gallstone W Biliary Colic, ED Diet Low Fat Follow-Up: Delfino Leo MD [Provider Admit Priv/Credential] - Felisha Victoria PA-C [Provider Admit Priv/Credential] - Comments: Patricia, today looks like you have a problem with stones in your gallbladder. This is likely to continue to give you a problem with episodic pain for any meal with a high fat content. Usually a gallbladder attack will last 4 to 5 hours. Today with a bedside ultrasound we were able to see stones in the gallbladder. A formal ultrasound done here through our imaging department is indicated. A follow up with your doctor to get this test ordered can be done on the phone and the recommendation is to call their office today to order the test. A follow- up with general surgery is indicated following the imaging. In the meantime a diet low in fat or absent in fat is recommended. Forms: PCP List
[2024-01-05] MEDS: MAG HYDROX/AL HYDROX/SIMETH 30 ML UDC PO STA (04:12)
[2024-01-05] MEDS: LIDOCAINE VISCOUS 2% 15 ML UDC MM STA (04:12)
[2024-01-05] MEDS: KETOROLAC 30 MG/ML VIAL IVP STA (04:56)
[2024-01-05 05:26] VITALS: BP 122/88; O2SAT 99
== END 2024-01-05 05:22 | disposition home or self-care (01) ==
LOC: ED 02:48
DX: K80.21 Calculus of gallbladder without cholecystitis with obstruction (principal)
CPT/HCPCS: 36415; 80053; 81003; 81025; 83690; 85025; 96374; 99283; A9270; 81001; 87086

== ENCOUNTER 2024-01-06 05:44 | Emergency (ER) | payer MEDICAID ==
--- NOTE | 2024-01-06 05:57 | ED Physician Documentation ---
PD HPI ABD PAIN - Stated complaint Stated Complaint: ABD PX - Chief complaint Chief Complaint: Abd Pain - History obtained from History obtained from: Patient - Additional information Additional information: HPI from patient. Patient was treated and released from this emergency department yesterday for similar symptoms; on yesterday's visit, ED MD bedside ultrasound demonstrated cholelithiasis. Unfortunately, the patient had a burrito from [facility] which caused sudden recurrence of her symptoms which consist of right upper quadrant and epigastric pain with nausea and vomiting. Patient says that, until yesterday, she had never been told in the past that she has gallstones. PD PAST MEDICAL HISTORY - Past Medical History Cardiovascular: None Respiratory: None Neuro: None Endocrine/Autoimmune: None Psych: Depression, Anxiety - Past Surgical History Past Surgical History: Yes Ortho: ACL reconstruction HEENT: Tonsil/Adenoidectomy - Present Medications Home Medications: Ambulatory Orders Medication Instructions Recorded Confirmed Lidocaine Viscous 2% [Xylocaine 5 ml PO Q4H PRN #100 ml 01/06/24 Viscous 2%] Pantoprazole [Protonix] 40 mg PO DAILY 30 Days #30 tablet 01/06/24 Sucralfate [Carafate] 1 gm PO HS 15 Days #150 ml 01/06/24 - Allergies Allergies/Adverse Reactions: Allergies Allergy/AdvReac Type Severity Reaction Status Date / Time No Known Drug Allergies Allergy Verified 01/06/24 05:56 - Social History Does the pt smoke?: No Smoking Status: Never smoker Does the pt drink ETOH?: Yes Does the pt have substance abuse?: No - Immunizations Immunizations are current?: Yes - POLST Patient has POLST: No PD ED PE NORMAL - Vitals Vital signs reviewed: Yes - General General: Alert and oriented X 3, Well developed/nourished, Other (appears to be in mild painful distress ) - Cardiac Cardiac: RRR, No murmur - Respiratory Respiratory: No respiratory distress, Clear bilaterally - Abdomen Abdomen: Soft, Non distended, Other (TTP RUQ>epigastrium, no rebound nor guarding) - Back Back: No CVA TTP - Derm Derm: Normal color, Warm and dry, No rash Results - Vitals Vitals: Vital Signs - 24 hr 01/06/24 01/06/24 01/06/24 05:49 05:56 09:01 Temperature 36.1 C L 36.4 C L Heart Rate 79 79 82 Respiratory 12 18 Rate Blood Pressure 137/82 H 123/70 O2 Saturation 99 100 Oxygen O2 Source Room air - Labs Labs: Laboratory Tests 01/06/24 01/06/24 06:44 06:44 WBC 8.3 RBC 4.18 L Hgb 12.7 Hct 39.5 MCV 94.5 MCH 30.4 MCHC 32.2 RDW 13.8 Plt Count 280 MPV 9.7 Neut # (Auto) 5.3 Lymph # (Auto) 2.3 [place] # (Auto) 0.5 Eos # (Auto) 0.1 Baso # (Auto) 0.0 Absolute Nucleated RBC 0.00 Nucleated RBC % 0.0 Sodium 138 Potassium 4.1 Chloride 108 Carbon Dioxide 25 Anion Gap 5.0 L BUN 19 Creatinine 1.2 Estimated GFR (MDRD) 55 L Glucose 83 Calcium 9.2 Total Bilirubin 0.3 AST 24 ALT 18 Alkaline Phosphatase 39 L Total Protein 7.1 Albumin 4.2 Globulin 2.9 Albumin/Globulin Ratio 1.4 Lipase 50 - Rads (name of study) RUQ US Relevant Findings:: Prelim report reviewed, See rad report PD Medical Decision Making - ED course Complexity details: reviewed results, re-evaluated patient, considered differential, d/w patient ED course: Patient presents due to recurrence of her right upper quadrant pain which was figured to be due to cholelithiasis on yesterday's [facility] ED visit. She says the pain she is currently experiencing is worse than when she was here yesterday. She is given 60 mg Toradol IM. She also is requesting the GI cocktail was given yesterday (viscous lidocaine with liquid Maalox); I explained to her that this would not help with the discomfort associate with gallstones, but she requested nonetheless and, given the low side effect profile and allowing for the possibility that she has gastritis as a coincident issue, this is also ordered and given. Blood test results and RUQ US are pending at end of my shift and thus care of patient is turned over to oncoming ED physician (Dr. Lange). Departure - Departure Disposition: 01 Home, Self Care Clinical Impression: Acute upper abdominal pain, Enlarged gallbladder, Gastritis Condition: Stable Instructions: ED PUD Vs Gastritis Prescriptions: Sucralfate [Carafate] 1 gm PO HS 15 Days #150 ml Pantoprazole [Protonix] 40 mg PO DAILY 30 Days #30 tablet Lidocaine Viscous 2% [Xylocaine Viscous 2%] 5 ml PO Q4H PRN #100 ml PRN Reason: Pain Comments: Your gallbladder by ultrasound is slightly larger than the normal range but does not show any signs of inflammation and no gallstones. Consideration for some gallbladder spasming as a cause of your pain but I think it actually more has to do with irritation of the stomach and initial intestines. (Gastritis). I would treat this with some acid reducing medicine such as pantoprazole. Also to use medication to coat the stomach lining, particularly at night before bed over the next couple of weeks. I prescribed 1 called sacral fate. In addition you can use antacids such as Tums Maalox or Mylanta type things through the day if needed for discomfort and you can add the lidocaine to that like what you got here in the ER if it helps with the symptoms. Decrease caffeine and spicy foods. You do not need to eliminate them completely. Use Tylenol 500 650 mg 4 times a day if needed for pains. Avoid ibuprofen or naproxen type medicines as that can further irritate your stomach. Recheck if not improving well over the next several days and essentially resolving within the next week or so. I sent your prescriptions to the [facility] pharmacy. Forms: PCP List Discharge Date/Time: 01/06/24 09:01
[2024-01-06] MEDS: MAG HYDROX/AL HYDROX/SIMETH 30 ML UDC PO STA (06:36)
[2024-01-06] MEDS: KETOROLAC 60 MG/2 ML VIAL IM STA (06:36)
[2024-01-06] MEDS: LIDOCAINE VISCOUS 2% 15 ML UDC MM STA (06:36)
[2024-01-06 06:55] LABS: BASOPHILS % (AUTO) 0.5 %; EOSINOPHILS # (AUTO) 0.1 10^3/uL (0.0-0.7); EOSINOPHILS % (AUTO) 1.2 %; HCT - HEMATOCRIT 39.5 % (37.0-47.0); HGB - HEMOGLOBIN 12.7 g/dL (12.0-16.0); LYMPHOCYTES # (AUTO) 2.3 10^3/uL (1.5-3.5); LYMPHOCYTES % (AUTO) 28.1 %; MEAN CORPUSCULAR HEMOGLOBIN 30.4 pg (27.0-31.0); MEAN CORPUSCULAR HGB CONC 32.2 g/dL (32.0-36.0); MEAN CORPUSCULAR VOLUME 94.5 fL (81.0-99.0); MEAN PLATELET VOLUME 9.7 fL (7.9-10.8); MONOCYTES # (AUTO) 0.5 10^3/uL (0.0-1.0); MONOCYTES % (AUTO) 6.1 %; NEUTROPHILS # (AUTO) 5.3 10^3/uL (1.5-6.6); NEUTROPHILS % (AUTO) 63.9 %; PLT - PLATELET COUNT 280 10^3/uL (130-450); RED BLOOD COUNT 4.18 10^6/uL (4.20-5.40); RED CELL DISTRIBUTION WIDTH 13.8 % (12.0-15.0); WHITE BLOOD COUNT 8.3 x10^3/uL (4.8-10.8)
[2024-01-06 07:07] LABS: ALBUMIN 4.2 g/dL (3.2-5.5); ALBUMIN/GLOBULIN RATIO 1.4 (1.0-2.2); BILIRUBIN,TOTAL 0.3 mg/dL (0.2-1.0); CALCIUM 9.2 mg/dL (8.5-10.3); CREATININE 1.2 mg/dL (0.6-1.3); POTASSIUM 4.1 mmol/L (3.5-4.5); TOTAL PROTEIN 7.1 g/dL (6.4-8.9)
[2024-01-06] MEDS: HYDROmorphone 1 MG/ML CARPUJECT IM STA (07:52)
[2024-01-06] MEDS: SUCRALFATE 1 GM/10 ML UDC PO STA (08:56)
[2024-01-06] MEDS: PANTOPRAZOLE 40 MG TABLET PO STA (08:56)
[2024-01-06 09:05] VITALS: BP 123/70; O2SAT 100
--- NOTE | 2024-01-06 09:46 | Ultrasound Report ---
PROCEDURE: Abdomen Limited INDICATIONS: RUQ pain TECHNIQUE: Real-time focused scanning was performed of the abdomen, with image documentation. COMPARISONS: None. FINDINGS: Liver: Mild increased echogenicity of the liver suggests probable mild diffuse hepatic steatosis. Gallbladder: No gallstones, sludge, wall thickening or pericholecystic edema. Mild gallbladder disten tion. Biliary ducts: Intrahepatic bile ducts are non-dilated. Extrahepatic bile duct caliber measures 3 m m. Normal is 6-7 mm or less in diameter, or 10 mm or less post-cholecystectomy. Pancreas: Not well visualized due to overlying bowel gas. Right kidney: Normal in size and echotexture. Right kidney measures 9.7 cm long. No hydronephrosis o r nephrolithiasis. No solid masses. No complex renal cystic lesions which require follow-up. IVC: Intrahepatic inferior vena cava is patent. Miscellaneous: No free abdominal fluid. IMPRESSION: 1. Gallbladder is mildly distended without gallstones or wall thickening or pain on examination. 2. Question mild diffuse hepatic steatosis. Reviewed by: José Luis Barbosa MD on 01/06/2024 9:45 AM PDT Approved by: José Luis Barbosa MD on 01/06/2024 9:45 AM PDT Station ID: [id number]
--- NOTE | 2024-01-06 22:36 | ED Physician Documentation ---
ED Addendum - Addendum Addendum: 01/06/24 22:34 Pending US at change of shift. She was doing okay with pain level initially but increased with US. Findings were some distension of GB at 10 cm, normal up to 9. No stones nor wall thickening. Her symptoms in upper abd and worse with eating, not apparently the GB at this time, would be attributable to gastritis/duodenitis for example. Given Rxs for symptoms and to start Pantoprazole. Disposition: discharged stable condition. DIagnoses: upper abd pain distended gallbladder gastritis acute
== END 2024-01-06 09:01 | disposition home or self-care (01) ==
LOC: ED 05:44
DX: K29.70 Gastritis, unspecified, without bleeding (principal); K82.8 Other specified diseases of gallbladder
CPT/HCPCS: 36415; 76705; 80053; 83690; 85025; 96372; 99283; 99284; A9270; J1170

== ENCOUNTER 2024-02-07 09:14 | Day surgery (SDC) | payer MEDICAID ==
[2024-02-07 09:39] LABS: HCG UR QUAL NEGATIVE
[2024-02-07] MEDS: LACTATED RINGERS 1,000 ML IV ONE ×2 (09:47→15:50)
[2024-02-07] MEDS: CELECOXIB 100 MG CAPSULE PO ONE (09:56)
[2024-02-07] MEDS: GABAPENTIN 400 MG CAPSULE ONE (09:56)
[2024-02-07] MEDS ORDERED: ALPRAZolam 0.25 MG TABLET PO ONE (10:09)
[2024-02-07] MEDS: ALPRAZolam 0.25 MG TABLET PO ONE (10:12)
[2024-02-07] MEDS ORDERED: ROPIVACAINE 0.5% PF 20 ML VIAL ONE (11:10)
[2024-02-07] MEDS ORDERED: DEXAMETHASONE 4 MG/ML VIAL ONE ×2 (11:10→13:46)
[2024-02-07] MEDS ORDERED: MIDAZOLAM 2 MG/2 ML VIAL ONE (11:11)
[2024-02-07] MEDS ORDERED: fentaNYL 100 MCG/2 ML VIAL ONE ×4 (11:11→16:07)
--- NOTE | 2024-02-07 11:49 | ANESTHESIA ---
Pre-Anesthesia VS, & Labs - Diagnosis Left ACL tear - Procedure LEFT arthroscopic ACL repair Vital Signs: Temp Pulse Resp BP Pulse Ox O2 Flow Rate 36.5 C 68 16 115/63 97 02/07/24 09:48 02/07/24 09:48 02/07/24 09:48 02/07/24 09:48 02/07/24 09:48 Height: 5 ft 7 in Weight (kg): 110.9 kg Body Mass Index: 38.2 BMI Classification: Obese - NPO >8 hours - Is Patient ?: No, Waiver signed Home Medications and Allergies Home Medications: Ambulatory Orders Bacillus Coagulan,Subtilis/Xos [Probiotic-Prebiotic Gummy] 1 each PO DAILY 02/02/24 Cholecalciferol (Vitamin D3) [Vitamin D3] 1,000 unit PO DAILY 02/02/24 Green Tea Glenn Extract [Green Tea] 500 mg PO DAILY 02/02/24 Vitamin B Complex 1 each PO DAILY 02/02/24 oxyCODONE [Roxicodone] 5 mg PO Q4HR PRN 02/02/24 Bacillus Coagulan,Subtilis/Xos [Probiotic-Prebiotic Gummy] 1 each PO DAILY 02/02/24 Cholecalciferol (Vitamin D3) [Vitamin D3] 1,000 unit PO DAILY 02/02/24 Green Tea Glenn Extract [Green Tea] 500 mg PO DAILY 02/02/24 Vitamin B Complex 1 each PO DAILY 02/02/24 oxyCODONE [Roxicodone] 5 mg PO Q4HR PRN 02/02/24 Allergies/Adverse Reactions: Allergies Allergy/AdvReac Type Severity Reaction Status Date / Time No Known Drug Allergies Allergy Verified 02/07/24 10:03 Anes History & Medical History - Anesthetic History Anesthesia Complications: reports: No previous complications - Medical History Cardiovascular: reports: None Pulmonary: reports: None Gastrointestinal: reports: GERD, Ulcers Urinary: reports: None Neuro: reports: None Musculoskeletal: reports: None Endocrine/Autoimmune: reports: None Smoking Status: Current every day smoker (vapes daily) Psychosocial: reports: Depression, Anxiety, Cannabis (occ, has not used for several months) History of Cancer?: No - Surgical History Eyes Ears Nose Throat (EENT): reports: Tonsil/Adenoidectomy Orthopedic: reports: ACL reconstruction Exam General: Alert, Oriented x3, Cooperative, No acute distress Dental: WNL Mouth Openin Fingerbreadth Neck Mobility: Normal Mallampati classification: II Thyromental Distance: 4-6 cm Mental/Cognitive Status: Alert/Oriented X3, Normal for patient Plan Anesthesia Type: General, Adductor Block (left) Consent for Procedure(s) Verified and Reviewed: Yes Code Status: Attempt Resuscitation ASA classification: 2-Mild systemic disease Is this case an emergency?: No
[2024-02-07] MEDS ORDERED: MORPHINE 2 MG/ML CARPUJECT IVP PRN (11:50)
[2024-02-07] MEDS ORDERED: ATROPINE ABBOJECT 1 MG/10 ML SYRINGE IVP PRN (11:50)
[2024-02-07] MEDS ORDERED: ONDANSETRON 4 MG/2 ML VIAL IVP PRN (11:50)
[2024-02-07] MEDS ORDERED: NALOXONE 0.4 MG/ML VIAL IVP PRN (11:50)
[2024-02-07] MEDS ORDERED: LACTATED RINGERS 1,000 ML IV SCH (12:00)
[2024-02-07] MEDS ORDERED: PROPOFOL 200 MG/20 ML VIAL IVP ONE ×2 (12:06→12:09)
[2024-02-07] MEDS ORDERED: LIDOCAINE-PF 2% 10 ML AMP SUBQ ONE (12:06)
[2024-02-07] MEDS ORDERED: ROCURONIUM 50 MG/5 ML VIAL ONE (12:06)
[2024-02-07] MEDS ORDERED: ACETAMINOPHEN 1,000 MG/100 ML 1,000 MG/100 ML BAG IV ONE (12:33)
[2024-02-07] MEDS ORDERED: HYDROmorphone 1 MG/ML CARPUJECT ONE ×2 (14:06→16:20)
[2024-02-07] MEDS ORDERED: ONDANSETRON 4 MG/2 ML VIAL ONE (15:03)
[2024-02-07] MEDS ORDERED: SUGAMMADEX 200 MG/2 ML VIAL IVP ONE (15:07)
[2024-02-07] MEDS: HYDROmorphone 0.5 MG/0.5 ML SYRINGE IVP PRN (16:05)
[2024-02-07] MEDS ORDERED: HYDROmorphone 0.5 MG/0.5 ML SYRINGE ONE (16:07)
[2024-02-07] MEDS ORDERED: ACETAMINOPHEN 500 MG TABLET PO PRN (16:13)
[2024-02-07] MEDS ORDERED: ONDANSETRON ODT 4 MG TABLET TL PRN (16:13)
[2024-02-07] MEDS: fentaNYL 100 MCG/2 ML VIAL IVP PRN (16:13)
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
[2024-02-07] MEDS: oxyCODONE 5 MG TABLET PO PRN (17:01)
[2024-02-07 17:26] VITALS: BP 130/81; O2SAT 98
--- NOTE | 2024-02-07 18:21 | ANESTHESIA POST OP EVALUATION ---
Anesthesia Post Eval - Post Anesthesia Eval Vitals: Last Vital Signs Temp 36.6 C 02/07/24 17:00 Pulse 85 02/07/24 17:00 Resp 20 02/07/24 17:00 BP 130/81 H 02/07/24 17:00 Pulse Ox 98 02/07/24 17:00 O2 Flow Rate CV Function Including HR & BP: Stable Pain Control: Satisfactory Nausea & Vomiting: Negative Mental Status: Baseline Respiratory Status: Airway Patent Hydration Status: Satisfactory Anesthesia Complications: None
== END 2024-02-07 17:43 | disposition home or self-care (01) ==
LOC: SDS 09:14 → MS2 16:34 → SDS 17:43
PROVIDERS: ATTEND Orthopaedic Surgery
DX: S83.512A Sprain of anterior cruciate ligament of left knee, initial encounter (principal); S83.282A Other tear of lateral meniscus, current injury, left knee, initial encounter; S83.242A Other tear of medial meniscus, current injury, left knee, initial encounter; M94.262 Chondromalacia, left knee; E66.9 Obesity, unspecified; Z68.38 Body mass index [BMI] 38.0-38.9, adult; F17.290 Nicotine dependence, other tobacco product, uncomplicated; F41.9 Anxiety disorder, unspecified; F32.A Depression, unspecified
CPT/HCPCS: 29881; 29888; 81025; A9270; C1713; J0131; J1170; J2795; J7040; J7120